=== PATIENT | male | born 1960 | race Caucasian/White ===

== ENCOUNTER 2024-09-15 13:25 | Emergency (ER) | payer MEDICARE, MEDICAID, SELFPAY ==
[2024-09-15 13:26] VITALS: BMI 26.4
[2024-09-15 13:34] VITALS: BP 126/84; PULSE 85; RESP 20; TEMP 36.7; O2SAT 98
--- NOTE | 2024-09-15 13:35 | EKG_ITS ---
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1960 Requested By: Eyal Steele (MARTINEZ) Order Number: [id number] Reading MD: Eyal Steele ([employer]ACKAGES TESTER) Measurements Intervals [place] Rate: 80 P: 42 NH: 187 QRS: -59 QRSD: 122 T: 94 QT: 421 QTc: 486 Interpretive Statements SINUS RHYTHM POSSIBLE LEFT ATRIAL ENLARGEMENT [-0.1mV P WAVE IN V1/V2] LEFT VENTRICULAR HYPERTROPHY AND ST-T CHANGE [VOLTAGE CRITERIA PLUS ST/T ABNORMALITY] INFERIOR MYOCARDIAL INFARCTION , OF INDETERMINATE AGE [40+ ms Q WAVE AND/OR ST/T ABNORMALITY IN II/aVF] Compared to ECG 02/21/2020 15:31:45 Ventricular premature complex(es) no longer present Incomplete right bundle-branch block no longer present ST (T wave) deviation still present Myocardial infarct finding still present /store/S0/[id number]
--- NOTE | 2024-09-15 13:49 | XR_ITS ---
Examination: CT cervical spine without contrast 2-D sagittal reconstructions 2-D coronal reconstructions 3-D reconstructions. Exam date and time:September 15, 2024 1402 hours INDICATIONS: Patient fell today injury to the neck, neck pain CTDI:vol (mGy) 9.07 DLP: (mGycm) 223 Technique: Multiple 2 mm axial sections of the cervical spine have been obtained. The coronal and sagittal reconstructions have been obtained. 3-D reconstructions have been obtained. Low dose protocols were performed. One or more of the following dose reduction techniques were used; automated exposure control, adjustment of the mA and/or KV according to patient size, use of iterative reconstruction technique. Findings: Axial sections demonstrate intact base of the skull. C1 exhibit satisfactory relationship to the odontoid. No acute cervical vertebral body fracture seen. Alignment posterior spinous processes satisfactory. Impression: No acute cervical fracture.
--- NOTE | 2024-09-15 13:49 | XR_ITS ---
Examination: CT brain head without contrast. 2-D sagittal coronal reconstructions Date and time of exam:September 15, 2024 1402 hours INDICATIONS: Patient fell today with injury to the head, frontal head pain after syncopal episode CTDI: vol (mGy):55.2 DLP: (mGycm):1256 Technique: Multiple CT axial sections of the brain have been obtained, 5 mm slice thickness. Contrast has not been administered. 2-D sagittal, coronal reconstructions have been obtained Low dose protocols were performed. One or more of the following dose reduction techniques were used; automated exposure control, adjustment of the mA and/or KV according to patient size, use of iterative reconstruction technique. Findings: No significant ventricular enlargement. Right frontal scalp swelling Intra-axial or extra-axial hemorrhage density is not seen. No mass effect or midline shift Basal cisterns are not remarkable. Fourth ventricle is midline. Cranial vault intact. Impression: Negative for acute hemorrhage, mass effect or midline shift
--- NOTE | 2024-09-15 13:51 | PD.EDRME ---
Rapid Medical Screening Exam RME Arrival date/time: 09/15/24 13:25 64-year-old male presents to the emergency department today with complaints of fall today Chief Complaint: Syncope / Near Syncope Time Seen by Provider: 09/15/24 13:35 Vital signs: Vital Signs Temperature 98.0 F 09/15/24 13:34 Pulse Rate 85 09/15/24 13:34 Respiratory Rate 20 09/15/24 13:34 Blood Pressure 126/84 09/15/24 13:34 Pulse Oximetry (%) 98 09/15/24 13:34 Oxygen Delivery Method Room Air 09/15/24 13:34
[2024-09-15 14:19] LABS: Basophils % (Auto) 0 % (0-2.5); Eosinophils % (Auto) 0 % (0-10); Hemoglobin 13.6 g/dL (13.5-16.0); Immature Granulocytes % (Auto) 0 % (0-0); Immature Granulocytes Auto 0.03 Thou/mm3 (0.00-0.00); Lymphocytes # (Auto) 0.6 Thou/mm3 (1.0-4.8); Lymphocytes % (Auto) 6 % (10-50); Mean Corpuscular HGB Conc 35.8 g/dl (31.0-37.0); Mean Corpuscular Hemoglobin 32.2 pg (25.0-35.0); Mean Corpuscular Volume 90 fL (80-100); Monocytes # (Auto) 0.8 Thou/mm3 (0.0-0.8); Monocytes % (Auto) 10 % (0-12); Neutrophils # (Auto) 7.4 Thou/mm3 (1.8-7.7); Neutrophils % (Auto) 84 % (37-80); Nucleated Red Blood Cell % 0 /100 WBC (0); Platelet Count 141 Thou/mm3 (140-440); RDW Standard Deviation 45.1 fL (35.1-43.9); Red Blood Count 4.23 Miln/mm3 (4.50-5.90); White Blood Count 8.8 Thou/mm3 (3.8-10.6)
[2024-09-15 14:37] LABS: INR 1.3 (0.9-1.3); Partial Thromboplastin Time 29.6 Seconds (22.0-36.0); Prothrombin Time 13.8 Seconds (9.0-12.2)
[2024-09-15 14:45] LABS: Alanine Aminotransferase 23 U/L (10-49); Albumin, Serum 3.9 gm/dL (3.4-4.8); Albumin/Globulin Ratio 1.2 (1.2-2.2); Alkaline Phosphatase 80 U/L (46-116); Anion Gap 7 (7-16); Aspartate Amino Transferase 71 U/L (0-34); BUN/Creatinine Ratio 15 Ratio (12-20); Bilirubin,Total 1.3 mg/dL (0.3-1.2); Blood Urea Nitrogen 12 mg/dL (9-23); Calcium (Corrected) 9.1 mg/dL (8.5-10.1); Carbon Dioxide 26.6 mMol/L (20.0-31.0); Chloride 97 mMol/L (98-107); Creatinine (Component) 0.8 mg/dL (0.6-1.3); Estimated Creatinine Clearance 106.8 mL/min (>60); Globulin 3.2 gm/dL (2.3-3.5); Glucose 102 mg/dL (74-106); Osmolality,Calculated 262 (275-295); Potassium 3.9 mMol/L (3.4-5.1); Sodium 131 mMol/L (136-145); Total Protein 7.1 gm/dL (5.7-8.2); eGFR > 60 See Note
[2024-09-15 14:46] LABS: Troponin I 0.058 ng/mL (0.0-0.045)
[2024-09-15] MEDS: ACETAMINOPHEN 500 MG TABLET 1000 MG PO (15:37)
[2024-09-15 15:52] LABS: Collection Type, Urine Clean Catch
[2024-09-15 16:09] LABS: Bilirubin,Urine 1+ (Negative); Blood,Urine Negative (Negative); Color,Urine Yellow (Lt Yel-Yel); Glucose, Urine Negative (Negative); Hyaline Casts,Urine < 1 /hpf (0-1); Ketones,Urine 2+ (Negative); Leukocyte Esterase,Urine Negative (Negative); Nitrite,Urine Negative (Negative); Protein,Urine 1+ (Neg - Trace); RBC,Urine 10 /hpf (0-3); Specific Gravity,Urine 1.025 (1.001-1.035); Squamous Epithelial Cell,Urine < 1 /hpf (0-5); WBC,Urine 7 /hpf (0-5)
[2024-09-15 16:10] VITALS: BP 156/85; PULSE 83; RESP 18; TEMP 36.9; O2SAT 98
[2024-09-15 16:12] LABS: Clarity,Urine Hazy (Clear/Hazy); Sperm,Urine Present
[2024-09-15 16:20] LABS: Amphetamine/Methamp Scrn,U Positive (Negative); Barbiturate Screen,Urine Negative (Negative); Benzodiazepines Screen,Urine Negative (Negative); Benzoylecgonine Screen, Ur Positive (Negative); Fentanyl Screen,Urine Negative (Negative); Opiate Screen,Urine Negative (Negative); THC Screen,Urine Positive (Negative)
[2024-09-15 16:49] VITALS: BP 149/88; PULSE 89; RESP 20; TEMP 36.9; O2SAT 95
--- NOTE | 2024-09-15 16:58 | PC.NURSE ---
patient awake and alert. states not sure what happened. does know he lost consciousness. c/o throbbing h/a. laceration observed to upper rt forehead and to rt outer eyebrow area.
[2024-09-15 17:51] VITALS: BP 111/71; PULSE 93; RESP 21; TEMP 37.2; O2SAT 92
--- NOTE | 2024-09-15 17:59 | PD.EDADULT ---
ED General RME/HPI General Chief complaint: Syncope / Near Syncope Stated complaint: was found down at home, confused, gash on forehead Time Seen by Provider: 09/15/24 13:35 Arrival date/time: 09/15/24 13:25 CC: Headache right forehead laceration HPI onset after a fall, the patient has conflicting stories of whether a speaker fell on him or he bumped to do it and it fell. The patient denies loss of consciousness. Patient is somewhat altered appears somewhat disheveled has no other specific complaints. Local pain is 3-4 out of 10 scale although I suspect the patient is under influence of substances. RME / HPI RME / HPI narrative: 09/15/24 13:25 64-year-old male presents to the emergency department today with complaints of fall today Related Data Home Medications ?Medication ?Instructions ?Recorded ?Confirmed lisinopril 20 mg tablet 20 mg PO QDAY 05/27/19 02/21/20 Previous Rx's ?Medication ?Instructions ?Recorded pantoprazole 40 mg tablet,delayed 40 mg PO QDAY #30 tabs 01/31/19 release acetaminophen 500 mg capsule 1,000 mg (2 x 500 mg) PO Q4H PRN 02/16/20 pain #30 caps pantoprazole 40 mg tablet,delayed 40 mg PO QDAY #14 tabs 02/21/20 release (Protonix) Allergies Allergy/AdvReac Type Severity Reaction Status Date / Time codeine Allergy Unknown Verified 09/15/24 13:29 ibuprofen AdvReac Intermediate DUE TO HX Verified 09/15/24 13:29 OF ULCERS Penicillins AdvReac Intermediate MAKES Verified 09/15/24 13:29 INFECTIONS WORSE Review of Systems Review of Systems Narrative Review of Systems: GEN: No fever, no chills, no weight loss EYES: No discharge, no visual changes, no pain HEENT: No ear pain, no congestion, no sore throat PULM: No shortness of breath, no cough, no congestion CV: No chest pain, no dyspnea on exertion, no palpitations GI: No nausea, no vomiting, no diarrhea, no pain, no constipation : No frequency, no urgency, no dysuria MUSC/SKEL: No joint pain, no back pain SKIN: Forehead laceration no rash PSYCH: No hallucinations, no depression HEME/LYMPH: No easy bleeding or bruising tendencies NEURO: No weakness, + headache Past Medical History Past Medical History NEUROLOGIC: Negative Seizures CARDIAC: Positive Hypercholesterolemia and Hypertension; Negative Cardiac Disorders or Congestive Heart Failure RESPIRATORY: Negative Chronic Obstructive Pulmonary Disease (COPD) or Asthma GASTROINTESTINAL: Positive Gastrointestinal Disorders, Hepatitis and Gastrointestinal Bleed GENITOURINARY: Negative Renal Disease ENDOCRINE: Negative Diabetes Mellitus Type 1 or Diabetes Mellitus Type 2 HEMATOLOGIC: Negative Sickle Cell Disease PSYCHO/SOCIAL: Positive Schizophrenia and Anxiety OTHER HISTORY: Negative Blood Transfusions, Blood Transfusion Reaction or Anesthesia Reactions Social History SMOKING STATUS: Never smoker SUBSTANCE USE: marijuana and methamphetamine ED Exam Narrative Physical exam: [General: Disheveled, ill kempt, mild discomfort not in any acute distress Head 5 cm full-thickness laceration to the right frontal scalp, no other lacerations abrasions hematoma or depressions. HEENT: Eyes: Pupils are PERRLA EOMs are intact nose no rhinorrhea or otorrhea no raccoon's eyes or diaz signs swallow symmetrical phonation is normal all the subsystems of ATTR within acceptable limits Neck is supple nontender Chest equal chest rise nontender to palpation Respiratory: Clear to auscultation no wheezes crackles or rubs CV: Rate rhythm is regular no murmurs rubs or clicks Abdomen is soft nontender no masses positive bowel sounds all 4 quadrants Back: No CVA tenderness no spinous process tenderness from cervical spine thoracic and lumbar spine Skin: 5 cm full-thickness laceration to the right frontal forehead. Otherwise skin is intact no petechiae rash induration ulceration or crepitus Extremities: Moving all extremity against resistance cap refill less than 2 seconds neurosensory intact Neuro: Awake alert oriented x3 Glascow coma 15 no focal deficits] Course Quality Measures none Orders Category Date Time Status EKG (ED ONLY) *Do not use* NOW Care 09/15/24 13:[address] cervical spine wo con Stat Exams 09/15/24 13:[address] head/brain wo con Stat Exams 09/15/24 13:49 Completed EKG (ED Only) Stat Exams 09/15/24 13:35 Draft CBC Stat Lab 09/15/24 14:12 Completed Comprehensive Metabolic Panel Stat Lab 09/15/24 14:12 Completed Drug Screen,Urine Stat Lab 09/15/24 15:48 Completed Partial Thromboplastin Time Stat Lab 09/15/24 14:12 Completed Prothrombin Time with INR Stat Lab 09/15/24 14:12 Completed Troponin I Stat Lab 09/15/24 14:12 Completed Troponin I Stat Lab 09/15/24 17:48 Completed Urinalysis Stat Lab 09/15/24 15:48 Completed Acetaminophen Tab [Tylenol ES Tab] Med 09/15/24 15:32 Discontinued 1,000 mg PO X1 ONE Lidocaine 1% 20 ml [Xylocaine 1% 20 ML] Med 09/15/24 17:41 Discontinued 10 ml INFL X1 ONE Tet,Diphth,Pertuss(Acell)-Tdap [Boostrix Vacc] Med 09/15/24 17:57 Discontinued 0.5 ml IMI .ONCE ONE Vital Signs Vital signs: Vital Signs Temperature 98.0 F 09/15/24 13:34 Pulse Rate 85 09/15/24 13:34 Respiratory Rate 20 09/15/24 13:34 Blood Pressure 126/84 09/15/24 13:34 Pulse Oximetry (%) 98 09/15/24 13:34 Oxygen Delivery Method Room Air 09/15/24 13:34 Procedures -ED Procedure Comment Laceration repair: Consent obtained: Anesthesia 1% lidocaine 3 mL injected the local site, the site was extensively cleaned and probed no foreign body was found site was approximated with 3 and ruptured sutures of 5-0 Ethilon with good approximation without complication patient tolerated procedure well. [facility] Patient data External records reviewed:: [facility] previous records Clinical information provided by:: patient and none Social determinants that could affect healthcare access:: substance use Patient has the following chronic illnesses:: Polysubstance abuse How is presenting disease/condition affected by chronic disease/condition?: exacerbated by Evaluation data The following diagnostics were reviewed and interpreted by me:: lab results and radiology exam(s) Lab and/or radiology exams considered but not ordered:: CT head is negative for any acute findings interpreted by me read by radiology. CBC shows no acute leukocytosis anemia thrombocytopenia Coags show an INR of 1.3 CMP shows sodium 131 no other acute electrolyte imbalances renal impairment transaminitis. T. bili elevated 1.3 Troponin is mildly elevated UDS is positive for cocaine methamphetamines and THC EKG performed at 1357 shows a ventricular rate of 80 MN interval 187 QRS 122 QTc of 456 is sinus rhythm nonspecific ST segment changes when compared to old EKG of January 2020 there are no significant changes Repeat troponin is essentially unchanged. Interpretation Summary: Fall forehead lack, polysubstance abuse patient is insisting on going home we will discharge the patient Medications Medications considered but not ordered:: None Medication administrations:: Medication Administration History Discontinued Medications Acetaminophen (Acetaminophen 500 Mg Tablet) 1,000 mg PO X1 ONE Stop: 09/15/24 15:33 Last Admin: 09/15/24 15:37 Dose: 1,000 mg Documented By: AA Diphtheria/Tetanus/Acell Pertussis (Diphth,Pertuss(Acell),Tet Vac 0.5 Ml Vial) 0.5 ml IMi .ONCE ONE Stop: 09/15/24 17:58 Last Admin: 09/15/24 19:20 Dose: 0.5 ml Documented By: SONALI Lidocaine HCl (Lidocaine Hcl 1% 20 Ml Vial) 10 ml INFL X1 ONE Stop: 09/15/24 17:42 None Consultations Consultation(s) initiated? (list below): No Diagnosis Differential Diagnosis ED Complaint MDM: Fall forehead laceration polysubstance abuse Most likely diagnosis given after review of the tests above:: Fall forehead laceration polysubstance abuse Admission Indicated Admission indicated?: not indicated Explain why admission is indicated or not indicated:: Stable for outpatient follow-up Admission Request Was there a request for admission?: No Disposition Plan Disposition Plan: Discharge Discharge Attestation Discharge Attestation: The patient and all family members were given an opportunity to ask questions and understood the discharge instructions. Discharge instructions specifically effects, indications for sooner follow up or return to the emergency department, and the expected course of current diagnosis. Patient condition: Stable Medical Decision Making Differential Diagnosis Differential Diagnosis: Fall forehead laceration polysubstance abuse Lab Data 09/15/24 14:12 09/15/24 14:12 Labs: Lab Results 09/15/24 09/15/24 09/15/24 Range/Units 14:12 15:48 17:48 WBC 8.8 (3.8-10.6) Thou/mm3 RBC 4.23 L (4.50-5.90) Miln/mm3 Hgb 13.6 (13.5-16.0) g/dL Hct 38.0 L (41.0-53.0) % MCV 90 (80-100) fL MCH 32.2 (25.0-35.0) pg MCHC 35.8 (31.0-37.0) g/dl RDW Std Deviation 45.1 H (35.1-43.9) fL Plt Count 141 (140-440) Thou/mm3 Neut % (Auto) 84 H (37-80) % Lymph % (Auto) 6 L (10-50) % [place] % (Auto) 10 (0-12) % Eos % (Auto) 0 (0-10) % Baso % (Auto) 0 (0-2.5) % Neut # (Auto) 7.4 (1.8-7.7) Thou/mm3 Lymph # (Auto) 0.6 L (1.0-4.8) Thou/mm3 [place] # (Auto) 0.8 (0.0-0.8) Thou/mm3 Eos # (Auto) 0.0 (0.0-0.5) Thou/mm3 Baso # (Auto) 0.0 (0.0-0.2) Thou/mm3 Immature Gran # (Auto) 0.03 H (0.00-0.00) Thou/mm3 Absolute Nucleated RBC 0.00 (0.00-0.00) Thou/mm3 Immature Gran % 0 (0-0) % Nucleated RBC % 0 (0) /100 WBC PT 13.8 H (9.0-12.2) Seconds INR 1.3 (0.9-1.3) APTT 29.6 (22.0-36.0) Seconds Sodium 131 L (136-145) mMol/L Potassium 3.9 (3.4-5.1) mMol/L Chloride 97 L (98-107) mMol/L Carbon Dioxide 26.6 (20.0-31.0) mMol/L Anion Gap 7 (7-16) BUN 12 (9-23) mg/dL Creatinine 0.8 (0.6-1.3) mg/dL Estim Creat Clear Calc 106.8 (>60) mL/min eGFR > 60 (60 - ) See Note BUN/Creatinine Ratio 15 (12-20) Ratio Glucose 102 (74-106) mg/dL Calculated Osmolality 262 L (275-295) Calcium 9.0 (8.3-10.6) mg/dL Corrected Calcium 9.1 (8.5-10.1) mg/dL Total Bilirubin 1.3 H (0.3-1.2) mg/dL AST 71 H (0-34) U/L ALT 23 (10-49) U/L Alkaline Phosphatase 80 (46-116) U/L Troponin I 0.058 H* 0.064 H* (0.0-0.045) ng/mL Total Protein 7.1 (5.7-8.2) gm/dL Albumin 3.9 (3.4-4.8) gm/dL Globulin 3.2 (2.3-3.5) gm/dL Albumin/Globulin Ratio 1.2 (1.2-2.2) Ur Collection Type Clean Catch Urine Color Yellow (Lt Yel-Yel) Urine Clarity Hazy (Clear/Hazy) Urine pH 6.0 (5.0-7.0) Ur Specific [place] 1.025 (1.001-1.035) Urine Protein 1+ A (Neg - Trace) Urine Glucose (UA) Negative (Negative) Urine Ketones 2+ A (Negative) Urine Blood Negative (Negative) Urine Nitrite Negative (Negative) Urine Bilirubin 1+ A (Negative) Urine Urobilinogen (Auto) 4.0 (0.0-1.0) mg/dL Ur Leukocyte Esterase Negative (Negative) Urine RBC 10 H (0-3) /hpf Urine WBC 7 H (0-5) /hpf Ur Squamous Epith Cells < 1 (0-5) /hpf Urine Bacteria None (None) Hyaline Casts < 1 (0-1) /hpf Urine Sperm Present A (None) Urine Opiates Screen Negative (Negative) Urine Fentanyl Screen Negative (Negative) Ur Barbiturates Screen Negative (Negative) U Amphetamin/Meth Scrn Positive A (Negative) U Benzodiazepines Scrn Negative (Negative) U Cocaine Metab Screen Positive A (Negative) U Marijuana (THC) Screen Positive A (Negative) Discharge Plan Plan Patient Disposition: HOME (Self Care) Patient condition on transfer: Stable Prescriptions/Referrals Prescriptions/Med Rec: No Action pantoprazole 40 mg tablet,delayed release (DR/EC) 40 mg PO QDAY Qty: 30 0RF acetaminophen 500 mg capsule 1,000 mg PO Q4H PRN (Reason: pain) Qty: 30 0RF lisinopril 20 mg Tablet 20 mg PO QDAY pantoprazole [Protonix] 40 mg tablet,delayed release (DR/EC) 40 mg PO QDAY Qty: 14 0RF Referrals: Richard Sanchez MD [Primary Care Provider] - In 1 week Problem List Clinical Impression: Fall, Forehead laceration, Methamphetamine abuse, Cocaine abuse, Mild tetrahydrocannabinol (THC) abuse Patient/Caregiver Discharge Instructions Other Activity Instructions:: Stitches out in [address] Education Materials: ED Laceration: All Closures Print Language: Pashto Stand Alone Forms: [facility]al Award Info., Patient Portal Info Letter PA/REPAIR ARMATURE WINDER HELPER Supervising Physician PA/REPAIR ARMATURE WINDER HELPER Supervising Physician: John Stephen ENP
[2024-09-15 18:26] LABS: Troponin I 0.064 ng/mL (0.0-0.045)
[2024-09-15] MEDS: DIPHTH,PERTUSS(ACELL),TET VAC 0.5 ML VIAL IMi (19:20)
[2024-09-15 19:23] VITALS: BP 125/77; PULSE 101; RESP 19; TEMP 36.8; O2SAT 95
== END 2024-09-15 19:40 | disposition home or self-care (01) ==
PROVIDERS: Nurse Practitioner Primary Care; Registered Nurse General Practice; Emergency Provider Emergency Medicine; PCP Family Medicine
DX: S01.81XA Laceration without foreign body of other part of head, initial encounter (principal); S19.9XXA Unspecified injury of neck, initial encounter; F15.10 Other stimulant abuse, uncomplicated; F14.10 Cocaine abuse, uncomplicated; F12.10 Cannabis abuse, uncomplicated; R94.31 Abnormal electrocardiogram [ECG] [EKG]; E78.00 Pure hypercholesterolemia, unspecified; I10 Essential (primary) hypertension; W19.XXXA Unspecified fall, initial encounter; Z23 Encounter for immunization
CPT/HCPCS: 12013; 36415; 70450; 72125; 80053; 80307; 81001; 84484; 85025; 85610; 85730; 90471; 90715; 93005; 99284; A9270

== ENCOUNTER 2025-03-11 05:49 | Inpatient (IN) | payer MEDICARE, MEDICAID, SELFPAY ==
[2025-03-11] VITALS (10 sets, daily range): BP systolic 129–149; BP diastolic 78–91; PULSE 77–118; RESP 16–26; TEMP 36.5–36.9; O2SAT 91–97; BMI 26.4; BMI 27.2
--- NOTE | 2025-03-11 06:19 | PC.NURSE ---
pt bib [facility] for flank pain urinary retention with some blood in urine. pt complaints in room left flank pain that radiates across abd to right side, pt also complains, complaints of headache he has had a cough past few days, no bm for 4 days last bm was diarrhea. pt also states he used meth and drank alcohol past few day.
--- NOTE | 2025-03-11 06:26 | EKG_ITS ---
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1960 Requested By: Manoj Jose Order Number: [id number] Reading MD: Manoj Jose Measurements Intervals [place] Rate: 80 P: 26 MD: 189 QRS: -36 QRSD: 121 T: 67 QT: 396 QTc: 459 Interpretive Statements SINUS RHYTHM LEFT ATRIAL ENLARGEMENT [-0.15mV P-WAVE IN V1/V2] POSSIBLE RIGHT VENTRICULAR CONDUCTION DELAY [RSR (QR) IN V1/V2] POSSIBLE ANTERIOR MYOCARDIAL INFARCTION , OF INDETERMINATE AGE [30 ms Q WAVE IN V3/V4, OR R < 0.2 mV IN V4] INFERIOR MYOCARDIAL INFARCTION , PROBABLY OLD [40+ ms Q WAVE AND/OR ST/T ABNORMALITY IN II/aVF] Compared to ECG 09/15/2024 13:57:37 Left ventricular hypertrophy no longer present ST (T wave) deviation no longer present Myocardial infarct finding still present /store/S0/[id number]
--- NOTE | 2025-03-11 06:41 | EDNOTE_ITS ---
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 Stop: 03/11/25 06:26 Last Admin: 03/11/25 07:55 Dose: 14 mg Documented By: ASHLEE Ondansetron HCl (Ondansetron Inj 2 Mg/Ml Inj 2 Ml) 4 mg IV X1 ONE; Protocol Stop: 03/11/25 06:26 Last Admin: 03/11/25 06:46 Dose: 4 mg Documented By: BD see above Diagnosis Differential Diagnosis ED Complaint MDM: Hyponatremia, community-acquired pneumonia, lactic acidosis Diagnoses ruled out and/or further discussions: Patient was found to have acute hyponatremia sodium 124 likely related to beer potomania, leukocytosis, community-acquired pneumonia, coagulopathy, lactic acidosis, hyperglycemia, and elevated total bilirubin. UA was negative for blood or infection therefore possibility of kidney stones and hydronephrosis less likely. Postvoiding patient continued to have abdominal pain therefore we will follow-up with CT abdomen with contrast to rule out any abdominal pathology including colitis pattern as patient was complaining of loose stools 3 days before. Patient was given a dose of Rocephin 1 mg x 1, azithromycin 500 mg x 1 and currently awaiting on sodium. Will start with normal saline at 65 cc/h if sodium continues to drop along with fluid restriction 1500 cc and strict in/outs.
[2025-03-11 06:46] LABS: Lactate (Lactic Acid) 2.4 mMol/L (0.4-2.0)
[2025-03-11] MEDS: MORPHINE SULF INJ 10 MG/ML VIAL 2 MG IVP ×2 (06:46→22:04)
[2025-03-11] MEDS: ONDANSETRON INJ 2 MG/ML INJ 2 ML 4 MG IV ×2 (06:46→14:29)
[2025-03-11] MEDS: Magnesium Sulfate 2 GM Ivpb 2 GM/50 ML BAG IV (06:46)
[2025-03-11] MEDS: RINGERS LACTATED 1000 ML 1,000 ML 999 ML IV (06:47)
[2025-03-11] MEDS: FAMOTIDINE INJ 10 MG/ML VIAL 2 ML 20 MG IVP (06:47)
[2025-03-11 06:50] LABS: Basophils # (Auto) 0.1 Thou/mm3 (0.0-0.2); Basophils % (Auto) 0 % (0-2.5); Eosinophils % (Auto) 0 % (0-10); Hematocrit 40.3 % (41.0-53.0); Hemoglobin 14.6 g/dL (13.5-16.0); Immature Granulocytes % (Auto) 1 % (0-0); Lymphocytes # (Auto) 0.5 Thou/mm3 (1.0-4.8); Lymphocytes % (Auto) 4 % (10-50); Mean Corpuscular HGB Conc 36.2 g/dl (31.0-37.0); Mean Corpuscular Hemoglobin 31.7 pg (25.0-35.0); Mean Corpuscular Volume 87 fL (80-100); Monocytes # (Auto) 1.3 Thou/mm3 (0.0-0.8); Monocytes % (Auto) 11 % (0-12); Neutrophils # (Auto) 9.7 Thou/mm3 (1.8-7.7); Neutrophils % (Auto) 83 % (37-80); Nucleated Red Blood Cell % 0 /100 WBC (0); Platelet Count 216 Thou/mm3 (140-440); RDW Standard Deviation 43.8 fL (35.1-43.9); Red Blood Count 4.61 Miln/mm3 (4.50-5.90); White Blood Count 11.6 Thou/mm3 (3.8-10.6)
--- NOTE | 2025-03-11 06:58 | PC.NURSE ---
called pharmacy for nicotine patch
[2025-03-11 07:01] LABS: INR 1.5 (0.9-1.3); Partial Thromboplastin Time 30.8 Seconds (22.0-36.0); Prothrombin Time 15.6 Seconds (9.0-12.2)
[2025-03-11 07:13] LABS: Ammonia < 10 uMol/L (11-32)
[2025-03-11 07:19] LABS: Alanine Aminotransferase 10 U/L (10-49); Albumin, Serum 3.6 gm/dL (3.4-4.8); Albumin/Globulin Ratio 1.2 (1.2-2.2); Alcohol, Blood Medical < 10.0 mg/dL (0-10.0); Alkaline Phosphatase 79 U/L (46-116); Anion Gap 10 (7-16); Aspartate Amino Transferase 31 U/L (0-34); BUN/Creatinine Ratio 21 Ratio (12-20); Bilirubin,Total 1.9 mg/dL (0.3-1.2); Blood Urea Nitrogen 15 mg/dL (9-23); Calcium 8.3 mg/dL (8.3-10.6); Calcium (Corrected) 8.6 mg/dL (8.5-10.1); Carbon Dioxide 26.4 mMol/L (20.0-31.0); Chloride 88 mMol/L (98-107); Creatinine (Component) 0.7 mg/dL (0.6-1.3); Estimated Creatinine Clearance 122.1 mL/min (>60); Glucose 127 mg/dL (74-106); Lipase 23 U/L (12-53); Magnesium 1.8 mg/dL (1.6-2.6); Osmolality,Calculated 252 (275-295); Phosphorous 2.7 mg/dL (2.4-5.1); Potassium 3.6 mMol/L (3.4-5.1); Procalcitonin 0.62 ng/ml (0.0-0.49); Sodium 124 mMol/L (136-145); Total Protein 6.6 gm/dL (5.7-8.2); Troponin I < 0.020 ng/mL (0.0-0.045); eGFR > 60 See Note
--- NOTE | 2025-03-11 07:41 | XR_ITS ---
Examination: Abdomen sonogram, Limited Date and time of exam: March 11, 2025 0801 hours INDICATIONS: Abdominal pain one week with elevated bilirubin on laboratory examination Technique: Real-time urena scale transabdominal sonographic images of the upper abdomen obtained. Findings: Gallbladder sludge Gallbladder wall 0.8 cm with edema Common bile duct 0.3 cm Pancreatic head 2.3 cm Liver 17.1 cm irregular contour ascites Normal hepatopedal portal venous flow Patent IVC IMPRESSION: Suspicious for acute cholecystitis, consider HIDA scan or MRCP follow-up
[2025-03-11] MEDS: NICOTINE PATCH 14 MG/24 HR PATCH.TD24 TOP (07:55)
--- NOTE | 2025-03-11 07:56 | XR_ITS ---
Examination: AP chest single view Technique one AP portable semiupright chest single view Date and time: March 11, 2025 0840 hours Comparison February 21, 2020 INDICATIONS: Coughing 3 days. FINDINGS: Early bibasilar pneumonia. Normal heart size. Moderate osteopenia. IMPRESSION: Early bibasilar pneumonia
[2025-03-11 08:07] LABS: B-Type Natriuretic Peptide 254 pg/mL (0-100)
[2025-03-11 08:17] LABS: Collection Type, Urine Clean Catch
[2025-03-11 08:45] LABS: Amphetamine/Methamp Scrn,U Positive (Negative); Barbiturate Screen,Urine Negative (Negative); Benzodiazepines Screen,Urine Negative (Negative); Benzoylecgonine Screen, Ur Negative (Negative); Fentanyl Screen,Urine Negative (Negative); Opiate Screen,Urine Positive (Negative); THC Screen,Urine Negative (Negative)
[2025-03-11 08:46] LABS: Bacteria,Urine Rare; Bilirubin,Urine Negative (Negative); Blood,Urine Negative (Negative); Clarity,Urine Clear (Clear/Hazy); Color,Urine Yellow (Lt Yel-Yel); Glucose, Urine Negative (Negative); Hyaline Casts,Urine < 1 /hpf (0-1); Ketones,Urine Negative (Negative); Leukocyte Esterase,Urine Negative (Negative); Nitrite,Urine Negative (Negative); PH,Urine 6.5 (5.0-7.0); Protein,Urine Negative (Neg - Trace); RBC,Urine 1 /hpf (0-3); Specific Gravity,Urine 1.014 (1.001-1.035); Squamous Epithelial Cell,Urine < 1 /hpf (0-5); Urobilinogen,Urine 12 mg/dL (0.0-1.0); WBC,Urine 1 /hpf (0-5)
[2025-03-11 09:31] LABS: Chloride,Urine Random < 20.0 mMol/L (55.0-125.0); Creatinine,Random Urine 56 mg/dL (30-125); Potassium,Urine Random 17 mMol/L (12-62); Sodium,Urine Random < 10.0 mMol/L (20.0-110.0)
[2025-03-11 09:42] LABS: Reflex Lactate? Y
--- NOTE | 2025-03-11 10:09 | XR_ITS ---
Examination: CT abdomen with intravenous contrast CT pelvis with intravenous contrast 2-D coronal reconstructions 2-D sagittal reconstructions Date and time of exam:The 2024 1149 hours Comparison May 27, 2019 INDICATIONS: Epigastric pain pelvic pain difficulty urinating today. CTDI: vol (mGy) 10 DLP: (mGycm) 673 Technique: Multiple axial sections of the abdomen and pelvis have been obtained. 64 slice high-resolution scanner used. 3 mm axial sections have been obtained, post intravenous injection 60 cc Isovue-370 2-D sagittal, coronal reconstructions obtained. Low dose protocols were performed. One or more of the following dose reduction techniques were used; automated exposure control, adjustment of the mA and/or KV according to patient size, use of iterative reconstruction technique. Findings: Atelectasis in the right lower lobe Cirrhosis, liver nodular in contour No definite gallstones Mild ascites No splenic or pancreatic mass No hydronephrosis Multiple fluid distended small bowel loops Heavy abdominal aortic calcification Colonic diverticulosis Urinary bladder contracted around a Jenkins catheter diffuse urinary bladder wall thickening up to 15 mm Transverse prostate dimension 4.2 cm Advanced disc narrowing L4-L5, L5-S1 IMPRESSION: Cirrhosis Mild ascites High-grade mechanical small bowel obstruction, recommend Gastrografin small bowel series follow-up
[2025-03-11 10:19] LABS: Lactic Acid, 3 HR 1.3 mMol/L (0.4-2.0)
[2025-03-11 10:33] LABS: Sodium 127 mMol/L (136-145)
[2025-03-11] MEDS: cefTRIAXone/D5w 1gm IV premix 1 GM/50 ML BAG IV (11:28)
[2025-03-11] MEDS: AZITHROMYCIN INJ 500 MG in SODIUM CHLORIDE 0.9% 250 ML 250 ML 250 MG IV (12:30)
--- NOTE | 2025-03-11 12:45 | XR_ITS ---
Examination: AP chest single view TECHNIQUE: AP portable upright chest single view Date and time: March 11, 2025 1333 hours INDICATIONS: Post orogastric tube placement. FINDINGS: Orogastric tube in the stomach satisfactory position Mild prominence left ventricle Moderate elevation right hemidiaphragm IMPRESSION: Orogastric tube satisfactory position
--- NOTE | 2025-03-11 13:13 | XR_ITS ---
Examination: Small bowel series Abdomen AP supine 3 views Date and time: March 11, 2025 1513 hours INDICATIONS: Abdominal pain and distention this week, small bowel obstruction pattern on CT abdomen pelvis today TECHNIQUE AND FINDINGS: Patient received 120 cc Gastrografin, immediate, 30 minute one hour films obtained Contrast in the stomach Markedly air distended small bowel loops IMPRESSION: Small bowel obstruction pattern, recommend follow-up abdomen films 4:00 PM, 6:00 PM, 8:00 PM
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
[2025-03-11] MEDS: SODIUM CHLORIDE 0.9% 1000 ML 1,000 ML 75 ML IV (13:47)
[2025-03-11 13:57] LABS: Sodium 124 mMol/L (136-145)
[2025-03-11] MEDS: MORPHINE SULF INJ 10 MG/ML VIAL 5 MG IVP (14:29)
[2025-03-11] MEDS: PIPER/TAZO 3.375 GM PREMIX 3.375 GM/50 ML BAG IV ×2 (14:53→23:27)
--- NOTE | 2025-03-11 16:20 | XR_ITS ---
Examination: Abdomen AP single view Technique: AP portable supine abdomen, single view Exam date and time: March 11, 2025 at 1612 hours INDICATIONS: Abdominal distention today, 2 hour film post small bowel series FINDINGS: Contrast in the stomach Significantly air distended small bowel loops IMPRESSION: Significantly air distended small bowel loops, follow-up abdomen films will be obtained
--- NOTE | 2025-03-11 18:20 | XR_ITS ---
Examination: Abdomen AP single view Technique: AP portable supine abdomen, single view Exam date and time: 03/11/2025 1830 hours INDICATIONS: Abdominal pain and distention today for our film delayed post small bowel series FINDINGS: Prominently distended small bowel loops IMPRESSION: High-grade mechanical small bowel obstruction pattern. Delayed films will be obtained
[2025-03-11 18:51] LABS: Sodium 129 mMol/L (136-145)
--- NOTE | 2025-03-11 20:20 | XR_ITS ---
Examination: Abdomen AP single view Technique: AP portable supine abdomen, single view Exam date and time: March 11, 2025, 2034 hours INDICATIONS: 6 hour delayed film for small bowel series today, small bowel obstruction pattern on earlier abdomen films FINDINGS: Significantly air distended small bowel loops Contrast in the stomach IMPRESSION: High-grade mechanical small bowel obstruction Recommend follow-up abdomen films 10:00 PM, 1:00 AM, 4:00 AM
--- NOTE | 2025-03-11 21:50 | PC.NURSE ---
pt complains of richards cath leaking and wants to pee- Repositioned richards cath, deflated richards cath balloon, applied lubricating jelly to richards cath, inserted same richards cath further in, and reinflated balloon, added 2ml ns in balloon. Anchored with cath secure, applied no sting barried to skin prior to sticking cath secure.
[2025-03-11] MEDS: POT PHOS 15 mMol in NS 250 ML 15 MMOL/250 ML BAG 62.5 MMOL IV (22:05)
--- NOTE | 2025-03-11 22:30 | XR_ITS ---
Examination: Abdomen AP single view Technique: AP portable supine abdomen, single view Exam date and time: March 11, 2025 1106 hours INDICATIONS: Abdominal pain and distention this week, 8 hour delayed film post small bowel series today. FINDINGS: Significant air distended small bowel loops IMPRESSION: Small bowel obstruction pattern. Additional delayed films will be obtained
[2025-03-11 22:54] LABS: Sodium 127 mMol/L (136-145)
--- NOTE | 2025-03-11 23:15 | PC.NURSE ---
portable abdomen xray done at bedside.
[2025-03-12] VITALS (7 sets, daily range): BP systolic 127–158; BP diastolic 78–92; PULSE 75–90; RESP 16–23; TEMP 36.1–36.3; O2SAT 89–96
--- NOTE | 2025-03-12 01:00 | XR_ITS ---
Examination: Abdomen AP single view Technique: AP portable supine abdomen, single view Exam date and time: March 12, 2025 0149 hours INDICATIONS: Abdominal pain and distention this week, at 11 hour delayed film post small bowel series yesterday FINDINGS: Air and contrast distended small bowel loops IMPRESSION: High-grade mechanical small bowel obstruction pattern
--- NOTE | 2025-03-12 02:00 | PC.NURSE ---
Shayy Hernández(sister) point of contact, except per patient Not to tell Shayy regarding positive meth, She does not need to know that .
[2025-03-12] MEDS: SODIUM CHLORIDE 0.9% 1000 ML 1,000 ML 75 ML IV ×2 (02:45→19:11)
[2025-03-12] MEDS: MORPHINE SULF INJ 10 MG/ML VIAL 2 MG IVP ×4 (03:05→23:36)
--- NOTE | 2025-03-12 03:35 | PC.NURSE ---
ambulated in hallway holding unto iv pole with standby assist, on room air while ambulating. Walked upto outside 3 north at the fire window glass curtain and back upto outside room 365, and back in room 363. 89-92% O2 sat on room air- reapplied O2 inh on at 2L/min/nc.
--- NOTE | 2025-03-12 04:00 | XR_ITS ---
Examination: Abdomen AP single view Technique: AP portable supine abdomen, single view Exam date and time: March 12, 2025 0418 hours INDICATIONS: Abdominal pain and distention this week, 14 hour delayed film for small bowel series yesterday FINDINGS: Prominently distended small bowel loops Minimal contrast in the colon IMPRESSION: High-grade mechanical small bowel obstruction pattern. Recommend follow-up abdomen film 8:00 AM
--- NOTE | 2025-03-12 05:00 | XR_ITS ---
Examination: CTA abdomen, with intravenous contrast. CTA pelvis, with intravenous contrast. 2-D sagittal and coronal reconstructions. 3-D reconstructions. Date and time of exam: March 12, 2025 1028 hours INDICATIONS: Abdominal pain and distention this week, clinical diagnosis ischemic bowel CTDI vol (mgy) 10.3 DLP (MGycm) 721 Technique: Multiple CTA images, 2.0 mm slice thickness, obtained abdomen, pelvis, with the high-resolution 64 slice scanner. 100 cc Isovue-370 is administered intravenously. Sagittal and coronal 2-D reconstructions are obtained. 3-D reconstructions, angiographic images are obtained. 3-D postprocessing, including vascular maximum intensity projections. Low dose protocols were performed. One or more of the following dose reduction techniques were used; automated exposure control, adjustment of the mA and/or KV according to patient size, use of iterative reconstruction technique. Findings: Pneumonia right base Cirrhosis, liver nodular in contour Mild ascites No gallstones No pancreatic or adrenal mass No hydronephrosis Markedly fluid distended in contrast distended small bowel loops Negative for pneumoperitoneum Colonic diverticulosis Mild prostatomegaly urinary Jenkins catheter IMPRESSION: Cirrhosis Mild ascites Fluid distended small bowel loops, but negative for pneumoperitoneum
[2025-03-12 05:39] LABS: Basophils % (Auto) 0 % (0-2.5); Eosinophils % (Auto) 0 % (0-10); Hematocrit 42.7 % (41.0-53.0); Immature Granulocytes % (Auto) 1 % (0-0); Immature Granulocytes Auto 0.07 Thou/mm3 (0.00-0.00); Lymphocytes # (Auto) 0.8 Thou/mm3 (1.0-4.8); Lymphocytes % (Auto) 7 % (10-50); Mean Corpuscular HGB Conc 35.1 g/dl (31.0-37.0); Mean Corpuscular Hemoglobin 31.9 pg (25.0-35.0); Mean Corpuscular Volume 91 fL (80-100); Monocytes # (Auto) 2.2 Thou/mm3 (0.0-0.8); Monocytes % (Auto) 20 % (0-12); Neutrophils # (Auto) 7.8 Thou/mm3 (1.8-7.7); Neutrophils % (Auto) 72 % (37-80); Nucleated Red Blood Cell % 0 /100 WBC (0); Platelet Count 199 Thou/mm3 (140-440); RDW Standard Deviation 46.9 fL (35.1-43.9); White Blood Count 10.8 Thou/mm3 (3.8-10.6)
[2025-03-12] MEDS: PIPER/TAZO 3.375 GM PREMIX 3.375 GM/50 ML BAG IV ×3 (05:42→21:13)
[2025-03-12 06:18] LABS: Alanine Aminotransferase 7 U/L (10-49); Albumin, Serum 3.2 gm/dL (3.4-4.8); Albumin/Globulin Ratio 1.1 (1.2-2.2); Alkaline Phosphatase 70 U/L (46-116); Anion Gap 10 (7-16); Aspartate Amino Transferase 28 U/L (0-34); BUN/Creatinine Ratio 22 Ratio (12-20); Bilirubin,Total 1.1 mg/dL (0.3-1.2); Blood Urea Nitrogen 13 mg/dL (9-23); Calcium (Corrected) 8.6 mg/dL (8.5-10.1); Carbon Dioxide 25.2 mMol/L (20.0-31.0); Chloride 98 mMol/L (98-107); Creatinine (Component) 0.6 mg/dL (0.6-1.3); Estimated Creatinine Clearance 149.4 mL/min (>60); Globulin 2.8 gm/dL (2.3-3.5); Glucose 107 mg/dL (74-106); Magnesium 2.2 mg/dL (1.6-2.6); Osmolality,Calculated 266 (275-295); Phosphorous 3.2 mg/dL (2.4-5.1); Potassium 3.9 mMol/L (3.4-5.1); Sodium 133 mMol/L (136-145); eGFR > 60 See Note
--- NOTE | 2025-03-12 08:00 | XR_ITS ---
Examination: Abdomen AP single view Technique: AP portable supine abdomen, single view Exam date and time: March 12, 2025 0839 hours INDICATIONS: 17 hour delayed film post small bowel series yesterday FINDINGS: Multiple air distended small bowel loops However, contrast is present in the colon IMPRESSION: Incomplete but prominent small bowel obstruction pattern
[2025-03-12] MEDS: PANTOPRAZOLE INJ 40 MG VIAL IVP (08:09)
[2025-03-12] MEDS: ENOXAPARIN SOD INJ 40 MG/0.4 ML SYRINGE SC (08:09)
--- NOTE | 2025-03-12 09:48 | PC.SS ---
Anthony Hernández is a 64 year-old male admitted to [facility] for SBO. SS conducted bedside contact with the patient to complete initial assessment and to discuss discharge planning.? Patient confirmed demographic information. Patient identifies his Sister Shayy Hernández [phone] as his surrogate decision maker. Patient resides at home alone. Pt states he is able to complete all ADL?s independently, no need for any source of DME. Pts PCP is Dr. Sanchez (last visit about 3 months ago) and pharmacy of choice is [facility] [place]. DC option discussed and pt wishes to return home, family will provide transport upon DC. No further intervention required at this time, social service agency director would be available to address any further concerns. DC Plan: Home Contact: Sister, Shayy ?
--- NOTE | 2025-03-12 09:50 | PC.SS ---
Anthony Hernández is a 64 year-old male admitted to [place] for SBO. SS conducted bedside contact with the patient to complete initial assessment and to discuss discharge planning.? Patient confirmed demographic information. Patient identifies his Sister Shayy Hernández [phone] as his surrogate decision maker. Patient resides at home alone. Pt states he is able to complete all ADL?s independently, no need for any source of DME. Pts PCP is Dr. Sanchez (last visit about 3 months ago) and [place] [facility] [place] discussed and pt wishes to return home, family will provide transport upon DC. No further intervention required at this time, nephrology social worker would be available to address any further concerns. DC Plan: Home Contact: Sister, Shayy ?
--- NOTE | 2025-03-12 13:13 | PC.SS ---
Rounding: Pending GI consult, will return home upon DC
--- NOTE | 2025-03-12 13:14 | PC.SS ---
Rounding: Pending Small Bowel Series and Dr. Agrawal consult, will return home upon DC
[2025-03-12] MEDS: LACTULOSE SYRUP 20 GM/30 ML UDC 30 GM NG (15:56)
[2025-03-12] MEDS: bisacodyL 10 MG SUPP PR (15:56)
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
--- NOTE | 2025-03-12 17:26 | ESPR_ITS ---
<Statement entered by Jeromy Vasquez MD - 03/18/25 16:22> I reviewed above note and agree with findings and plans. I have also personally examined the patient with medicine team and went over assessment and plan with medical team including development intern and resident physician. Documentation for date of: 03/12/25 Subjective Subjective Interval history: Patient seen today at the bedside found awake, alert, orientedx3. No overnight events reported. Vitals and labs reviewed. Abdominal distention somewhat improved. In the afternoon patient was able to have a bowel movement, NG tube discontinued and patient was started on full liquid diet. Exam Vital Signs Temp Pulse Resp BP Pulse Ox O2 Del Method O2 Flow Rate 97.1 F 85 19 148/78 H 92 L Nasal Cannula 2 03/12/25 16:00 03/12/25 16:00 03/12/25 16:00 03/12/25 16:00 03/12/25 16:00 03/12/25 16:00 03/12/25 16:00 Narrative Exam Physical Exam GENERAL: NAD, AAOx3 HEENT: Moist mucosa. Eyes open, symmetrical, & clear CARDIO: Heart RRR, no obvious murmurs PULM: No noted coughing/dyspnea CTA B/L, no R/W/R GI: Abdomen soft, distended-improved, no pain on palpation. BSx4 SKIN/MSK/EXT: No wounds/rashes/edema/amputations, no pain on palpation. Pedal pulses present B/L NEURO: AAOx3, no focal neuro deficits, able to move all 4 extremities Objective Labs 03/12/25 05:13 03/12/25 05:13 Labs: Laboratory Results - last 24 hr 03/11/25 03/11/25 03/12/25 18:26 22:19 05:13 WBC 10.8 H RBC 4.70 Hgb 15.0 Hct 42.7 MCV 91 MCH 31.9 MCHC 35.1 RDW Std Deviation 46.9 H Plt Count 199 Neut % (Auto) 72 Lymph % (Auto) 7 L [place] % (Auto) 20 H Eos % (Auto) 0 Baso % (Auto) 0 Neut # (Auto) 7.8 H Lymph # (Auto) 0.8 L [place] # (Auto) 2.2 H Eos # (Auto) 0.0 Baso # (Auto) 0.0 Immature Gran # (Auto) 0.07 H Absolute Nucleated RBC 0.00 Immature Gran % 1 H Nucleated RBC % 0 Sodium 129 L 127 L 133 L Potassium 3.9 Chloride 98 Carbon Dioxide 25.2 Anion Gap 10 BUN 13 Creatinine 0.6 Estim Creat Clear Calc 149.4 eGFR > 60 BUN/Creatinine Ratio 22 H Glucose 107 H Calculated Osmolality 266 L Calcium 8.0 L Corrected Calcium 8.6 Phosphorus 3.2 Magnesium 2.2 Total Bilirubin 1.1 D AST 28 ALT 7 L Alkaline Phosphatase 70 Total Protein 6.0 Albumin 3.2 L Globulin 2.8 Albumin/Globulin Ratio 1.1 L Quality Measures Quality Measures none Assessment & Plan Assessment Current Active Medications: Generic Name Dose Route Start Last Admin Trade Name Freq PRN Reason Stop Dose Admin Acetaminophen 650 mg 03/11/25 13:13 Acetaminophen 325 Mg Tablet PO 04/10/25 13:12 Q6H PRN Fever >101.5 Acetaminophen 1,000 mg 03/11/25 13:13 Acetaminophen 500 Mg Tablet PO 04/10/25 13:12 Q6H PRN PAIN SCALE 1-3 (mild Enoxaparin Sodium 40 mg 03/12/25 09:00 03/12/25 08:09 Enoxaparin Sod Inj 40 Mg/0.4 Ml Syringe SC 03/26/25 08:59 40 mg QDAY RAMAN Administration Sodium Chloride 1,000 mls @ 75 mls/hr 03/11/25 13:39 03/12/25 02:45 Ns IV 04/10/25 13:38 75 mls/hr .[id number] RAMAN Administration Piperacillin/Tazobactam/Dextrose 3.375 gm in 50 mls @ 12.5 mls/hr 03/11/25 22:00 03/12/25 13:09 Zosyn IV 03/18/25 21:59 12.5 mls/hr Q8HR RAMAN Administration Lorazepam 0.5 mg 03/11/25 14:05 Lorazepam 0.5 Mg Tablet PO 03/16/25 14:04 Q4HR PRN CIWA Score 2-6 Lorazepam 0.5 mg 03/11/25 14:05 Lorazepam 2 Mg/Ml Vial IV 03/16/25 14:04 Q2HR PRN CIWA SCORE 7-13 Lorazepam 1 mg 03/11/25 14:05 Lorazepam 2 Mg/Ml Vial IV 03/16/25 14:04 Q2HR PRN CIWA SCORE 14-19 Lorazepam 2 mg 03/11/25 14:05 Lorazepam 2 Mg/Ml Vial IV 03/16/25 14:04 Q2HR PRN CIWA SCORE 20-25 Morphine Sulfate 2 mg 03/11/25 13:52 03/12/25 11:23 Morphine Sulf Inj 10 Mg/Ml Vial IVP 03/16/25 13:51 2 mg Q4HR PRN Administration PAIN RATED 4-10 Ondansetron HCl 4 mg 03/11/25 13:13 03/11/25 14:29 Ondansetron Inj 2 Mg/Ml Inj 2 Ml IV 04/10/25 13:12 4 mg Q6H PRN Administration NAUSEA OR VOMITING Protocol Pantoprazole Sodium 40 mg 03/12/25 09:00 03/12/25 08:09 Pantoprazole Inj 40 Mg Vial IVP 04/11/25 08:59 40 mg QDAY RAMAN Administration Pharmacy Consult 1 each 03/11/25 23:45 Pharmacy To Consult Patient XX 04/10/25 23:44 PRN PRN CONSULT Plan 64-year-old male active smoker with past medical history of hypertension, hyperlipidemia, bipolar disorder, paranoid schizophrenia, polysubstance use, presented to the ED due to back pain. Patient was admitted for small bowel obstruction. #Abdominal distention #High-grade mechanical bowel obstruction Patient with abdominal distention Patient has no history of abdominal surgeries Last bowel movement on 03/09/2025 Patient is passing flatus Patient had BM after lactulose, NGT dcd CTA abdomen pelvis negative ? Full liquid diet ? General Surgery consulted, appreciate recommendations ? Zofran for nausea ? Pantoprazole ? Zosyn ? morphine 2mg #Bibasilar Pneumonia CXR bibasilar PNA some subjective fevers, Leukocytosis - F/u Cultures - Zosyn #Urinary retention states hard to urinate with some blood - richards catheter in place #Hyponatremia-improving likely in the setting of beer potomania -monitor for now #Polysubstance use #Alcohol use disorder #Methamphetamine use #Active smoker Drinks 12 packs of beer per day, last drink saturday03/06/2025 Smokes a pack a day Patient uses methamphetamine, last use was on Saturday ? CIWA protocol ? Nicotine patch #Hypertension ?med rec ordered #Hx of bipolar #Hx of schizophrenia - pending med rec #Lactic acidosis-resolved Health Maintenance: Disposition: MedSurg Fluids: NS Feeding: N.p.o. Thrombo prophylaxis: Lovenox Gastric Ulcer prophylaxis: Pantoprazole CODE STATUS: Full code Case discussed with my attending Dr. Mikaela Sanchez MD PGY-1
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
[2025-03-12] MEDS: ACETAMINOPHEN 500 MG TABLET 1000 MG PO (21:25)
[2025-03-13] VITALS (14 sets, daily range): BP systolic 108–167; BP diastolic 60–100; PULSE 63–90; RESP 16–23; TEMP 36.1–37; O2SAT 89–99; BMI 27.2
--- NOTE | 2025-03-13 03:09 | PC.NURSE ---
Pt wants richards cath removed due to c/o excruciating pain at insertion site. Called MD, spoke with Dr. Philip and informed of pt's refusal to richards, will monitor urine output. Richards cath draining dark yellow urine, had 350 cc in the bag prior to DC'ing richards. Richards removed without any problem.
--- NOTE | 2025-03-13 04:57 | PC.NURSE ---
Pt's B/P elevated, 167/100, rechecked with result of 150/97. Dr Sevilla informed. Pt also been up to the bathroom, stated had BM twice and also urinated in the toilet therefore unable to document post void output.
[2025-03-13] MEDS: PIPER/TAZO 3.375 GM PREMIX 3.375 GM/50 ML BAG IV ×3 (05:29→21:03)
[2025-03-13] MEDS: Lisinopril 20 MG TABLET PO (05:29)
[2025-03-13 06:34] LABS: Basophils % (Auto) 0 % (0-2.5); Eosinophils % (Auto) 0 % (0-10); Hematocrit 38.5 % (41.0-53.0); Hemoglobin 13.4 g/dL (13.5-16.0); Immature Granulocytes % (Auto) 1 % (0-0); Immature Granulocytes Auto 0.15 Thou/mm3 (0.00-0.00); Lymphocytes # (Auto) 0.8 Thou/mm3 (1.0-4.8); Lymphocytes % (Auto) 7 % (10-50); Mean Corpuscular HGB Conc 34.8 g/dl (31.0-37.0); Mean Corpuscular Hemoglobin 32.1 pg (25.0-35.0); Mean Corpuscular Volume 92 fL (80-100); Monocytes # (Auto) 1.3 Thou/mm3 (0.0-0.8); Monocytes % (Auto) 12 % (0-12); Neutrophils # (Auto) 8.3 Thou/mm3 (1.8-7.7); Neutrophils % (Auto) 78 % (37-80); Nucleated Red Blood Cell % 0 /100 WBC (0); Platelet Count 215 Thou/mm3 (140-440); RDW Standard Deviation 47.8 fL (35.1-43.9); Red Blood Count 4.18 Miln/mm3 (4.50-5.90); White Blood Count 10.6 Thou/mm3 (3.8-10.6)
[2025-03-13 07:18] LABS: Alanine Aminotransferase < 7 U/L (10-49); Albumin/Globulin Ratio 1.2 (1.2-2.2); Alkaline Phosphatase 66 U/L (46-116); Anion Gap 8 (7-16); Aspartate Amino Transferase 24 U/L (0-34); BUN/Creatinine Ratio 24 Ratio (12-20); Bilirubin,Total 0.9 mg/dL (0.3-1.2); Blood Urea Nitrogen 12 mg/dL (9-23); Calcium 7.6 mg/dL (8.3-10.6); Calcium (Corrected) 8.4 mg/dL (8.5-10.1); Carbon Dioxide 27.8 mMol/L (20.0-31.0); Chloride 102 mMol/L (98-107); Creatinine (Component) 0.5 mg/dL (0.6-1.3); Estimated Creatinine Clearance 179.3 mL/min (>60); Globulin 2.6 gm/dL (2.3-3.5); Glucose 111 mg/dL (74-106); Osmolality,Calculated 276 (275-295); Phosphorous 2.1 mg/dL (2.4-5.1); Potassium 3.6 mMol/L (3.4-5.1); Sodium 138 mMol/L (136-145); Total Protein 5.6 gm/dL (5.7-8.2); eGFR > 60 See Note
[2025-03-13] MEDS: PANTOPRAZOLE INJ 40 MG VIAL IVP (08:46)
[2025-03-13] MEDS: ENOXAPARIN SOD INJ 40 MG/0.4 ML SYRINGE SC (08:46)
[2025-03-13] MEDS: OXYBUTYNIN CHLOR 5 MG TABLET PO ×2 (08:46→20:21)
[2025-03-13] MEDS: risperiDONE 1 MG TABLET 2 MG PO ×2 (08:46→20:20)
[2025-03-13] MEDS: ALBUTEROL/IPRATROPIUM (Duoneb) RT SOL 3 ML NEBU INH (09:28)
[2025-03-13] MEDS: guaiFENesin/DM TABLET 1 EACH PO (10:00)
--- NOTE | 2025-03-13 13:03 | PD.SURPROG ---
Documentation for date of: 03/13/25 Subjective Subjective Narrative: Patient is seen and examined. His abdominal pain is improving. His NG tube was removed and he was started on clear liquids. He is having bowel movements Exam Vital Signs Temp Pulse Resp BP Pulse Ox O2 Del Method O2 Flow Rate 97.4 F 85 18 164/98 H 96 Room Air 2 03/13/25 08:00 03/13/25 11:23 03/13/25 09:31 03/13/25 08:00 03/13/25 09:31 03/13/25 08:00 03/13/25 09:31 Constitutional Constitutional: no acute distress Routine Abdominal Exam Abdominal: Present soft and normoactive bowel sounds; Absent tenderness or distended Assessment & Plan Assessment Additional comments: Small bowel obstruction resolving Plan May advance diet as tolerated
--- NOTE | 2025-03-13 13:50 | ESPR_ITS ---
<Statement entered by Jeromy Vasquez MD - 03/18/25 16:23> I reviewed above note and agree with findings and plans. I have also personally examined the patient with medicine team and went over assessment and plan with medical team including jewelry internship and resident physician. Documentation for date of: 03/13/25 Subjective Subjective Interval history: Patient was seen and examined at bedside this AM. No acute events overnight. Patient tolerating liquid diet, adequate urine output and mentation is at baseline. He is endorses improvement of abdominal pain since multiple BMs over the last 12 hours. Abdominal distention has improved. General surgery following, appreciate input. Gave patient laxatives yesterday which seems to have resolved the partial SBO completely. Resumed home medications for hypertension and mood disorder. Pending GI recommendations re: colonoscopy to r/o colon CA , CEA levels ordered. Exam Vital Signs Temp Pulse Resp BP Pulse Ox O2 Del Method O2 Flow Rate 97.4 F 70 16 148/81 H 96 Room Air 2 03/13/25 12:00 03/13/25 12:00 03/13/25 12:00 03/13/25 12:00 03/13/25 12:00 03/13/25 12:00 03/13/25 09:31 Narrative Exam Constitutional Alert, oriented x3 and comfortable on 2L oxygen via NC HEENT Vision grossly intact. Patent nares. Trachea midline. Respiratory Chest normal on inspection and clear to auscultation bilaterally. Cardiovascular S1 and S2 audible, RRR. No murmurs or carotid bruit. No gross JVD. Abdominal Soft and BS + ; less distended, mildly tender to palpation in LT upper and lower quadrants. Genitourinary No bladder tenderness, no flank pain. Normal to palpation. Richards in place Musculoskeletal Extremities tone within normal limits. No LE edema. Neurological CN II - XII grossly intact. Extremity motor and sensation grossly intact. Skin Warm, dry and intact. No apparent lesions. Psychiatric Patient has a good affect, is cooperative. Objective Labs 03/13/25 05:42 03/13/25 05:42 Labs: Laboratory Results - last 24 hr 03/13/25 05:42 WBC 10.6 RBC 4.18 L Hgb 13.4 L Hct 38.5 L MCV 92 MCH 32.1 MCHC 34.8 RDW Std Deviation 47.8 H Plt Count 215 Neut % (Auto) 78 Lymph % (Auto) 7 L [place] % (Auto) 12 Eos % (Auto) 0 Baso % (Auto) 0 Neut # (Auto) 8.3 H Lymph # (Auto) 0.8 L [place] # (Auto) 1.3 H Eos # (Auto) 0.0 Baso # (Auto) 0.0 Immature Gran # (Auto) 0.15 H Absolute Nucleated RBC 0.00 Immature Gran % 1 H Nucleated RBC % 0 Sodium 138 Potassium 3.6 Chloride 102 Carbon Dioxide 27.8 Anion Gap 8 BUN 12 Creatinine 0.5 L Estim Creat Clear Calc 179.3 eGFR > 60 BUN/Creatinine Ratio 24 H Glucose 111 H Calculated Osmolality 276 Calcium 7.6 L Corrected Calcium 8.4 L Phosphorus 2.1 L Magnesium 2.0 Total Bilirubin 0.9 AST 24 ALT < 7 L Alkaline Phosphatase 66 Total Protein 5.6 L Albumin 3.0 L Globulin 2.6 Albumin/Globulin Ratio 1.2 Quality Measures Quality Measures none Assessment & Plan Assessment Current Active Medications: Generic Name Dose Route Start Last Admin Trade Name Freq PRN Reason Stop Dose Admin Acetaminophen 1,000 mg 03/13/25 13:45 Acetaminophen 500 Mg Tablet PO 04/10/25 13:12 Q6H PRN fever >99 Amlodipine Besylate 5 mg 03/13/25 21:00 Amlodipine Besylate 5 Mg Tablet PO 04/12/25 20:59 HS RAMAN Enoxaparin Sodium 40 mg 03/12/25 09:00 03/13/25 08:46 Enoxaparin Sod Inj 40 Mg/0.4 Ml Syringe SC 03/26/25 08:59 40 mg QDAY RAMAN Administration Guaifenesin/Dextromethorphan 1 each 03/13/25 09:15 03/13/25 10:00 Guaifenesin/Dm Tablet PO 04/12/25 09:14 1 each BID PRN Administration COUGH Piperacillin/Tazobactam/Dextrose 3.375 gm in 50 mls @ 12.5 mls/hr 03/11/25 22:00 03/13/25 13:34 Zosyn IV 03/18/25 21:59 12.5 mls/hr Q8HR RAMAN Administration Lisinopril 20 mg 03/13/25 05:00 03/13/25 05:29 Lisinopril 20 Mg Tablet PO 04/12/25 04:59 20 mg QDAY RAMAN Administration Lorazepam 0.5 mg 03/11/25 14:05 Lorazepam 2 Mg/Ml Vial IV 03/16/25 14:04 Q2HR PRN CIWA SCORE 7-13 Lorazepam 1 mg 03/11/25 14:05 Lorazepam 2 Mg/Ml Vial IV 03/16/25 14:04 Q2HR PRN CIWA SCORE 14-19 Metoclopramide HCl 10 mg 03/13/25 07:59 Metoclopramide Inj 5 Mg/Ml Vial 2 Ml IVP 04/12/25 07:58 Q6HR PRN NAUSEA OR VOMITING Protocol Oxybutynin Chloride 5 mg 03/13/25 09:00 03/13/25 08:46 Oxybutynin Chlor 5 Mg Tablet PO 04/12/25 08:59 5 mg BID RAMAN Administration Pantoprazole Sodium 40 mg 03/12/25 09:00 03/13/25 08:46 Pantoprazole Inj 40 Mg Vial IVP 04/11/25 08:59 40 mg QDAY RAMAN Administration Risperidone 2 mg 03/13/25 09:00 03/13/25 08:46 Risperidone 1 Mg Tablet PO 04/12/25 08:59 2 mg BID RAMAN Administration Sertraline HCl 100 mg 03/13/25 21:00 Sertraline Hcl 25 Mg Tablet PO 04/12/25 20:59 HS RAMAN Plan Mr Hernández is a 64-year-old male active smoker with past medical history of hypertension, hyperlipidemia, bipolar disorder, paranoid schizophrenia, polysubstance use, presented to the ED due to back pain. Patient was admitted for small bowel obstruction. Abdominal distention - improving High-grade mechanical bowel obstruction - resolved Patient with abdominal distention Patient has no history of abdominal surgeries Last bowel movement on 03/09/2025. Patient is passing flatus Patient had BM after lactulose, NGT dcd CTA abdomen pelvis negative 03/13 : improvement of abdominal pain and distention, since multiple BMs over the last 12 hours after laxatives given by GenSurg Plan: ? Full liquid diet --> Dysphagia 1 puree ? General Surgery following, appreciate input ? PRN Reglan q6H for nausea ? Pantoprazole 40mg qD ? Contine IV Zosyn 3.375 q8H (03/11 - ). Will transition to PO tomorrow in preparation for DC. - GI consulted, appreciate recs. Pending final recommendations re: colonoscopy to r/o colon CA - Follow up CEA levels Lactic acidosis-resolved Bibasilar Pneumonia CXR : questionable bibasilar PNA some subjective fevers, Leukocytosis resolved Plan: - MRSA negative - Blood cultures negative - On IV Zosyn Urinary retention 2/2 TERRAZAS Hyponatremia- resolved states hard to urinate with some blood likely in the setting of beer potomania Plan: - richards catheter in place - Urine culture show contamination, largely negative. Polysubstance use Alcohol use disorder Methamphetamine use Active smoker Drinks 12 packs of beer per day, last drink saturday03/06/2025 Smokes a pack a day Patient uses methamphetamine, last use was on Saturday Plan: ? CIWA protocol ? Nicotine patch Primary Hypertension BP trending 140-170/ 90-110s Plan: - Resumed home Lisinopril 20mg qD - Added amlodipine 5mg HS for optimization Hx of bipolar Hx of schizophrenia Plan: - Resumed home Risperidone 2mg BID - Resumed home Sertraline at reduced dose of 100mg HS. Takes 200mg at home. Health Maintenance: Disposition: MedSurg. Pending GI recs regarding colonoscopy Fluids: NS Feeding: Liquid diet -> Dysphagia 1 carb consis Thrombo prophylaxis: Lovenox Gastric Ulcer prophylaxis: Pantoprazole CODE STATUS: Full code Plan of care discussed with attending Dr Vasquez, - Rodriguez Rehman M.D. PGY2 Disclaimer: Minor errors in cigar head puncher may be present as this note was dictated using voice recognition software.
[2025-03-13] MEDS: NAPH,KPH MBDB 1 PACKET (1.5 GM) PO (14:20)
[2025-03-13] MEDS: CALCIUM CARBONATE 600 MG TABLET PO (14:20)
[2025-03-13] MEDS: traMADol HCL 50 MG TABLET 100 MG PO (17:23)
--- NOTE | 2025-03-13 19:31 | ESPR_ITS ---
Documentation for date of: 03/13/25 Subjective Subjective Interval history: Patient having bowel movements passing flatus Exam Vital Signs Temp Pulse Resp BP Pulse Ox O2 Del Method O2 Flow Rate 97.6 F 86 19 108/60 95 Room Air 2 03/13/25 16:00 03/13/25 16:00 03/13/25 16:00 03/13/25 16:00 03/13/25 16:00 03/13/25 16:00 03/13/25 09:31 Objective Labs 03/13/25 05:42 03/13/25 05:42 Labs: Laboratory Results - last 24 hr 03/13/25 05:42 WBC 10.6 RBC 4.18 L Hgb 13.4 L Hct 38.5 L MCV 92 MCH 32.1 MCHC 34.8 RDW Std Deviation 47.8 H Plt Count 215 Neut % (Auto) 78 Lymph % (Auto) 7 L [place] % (Auto) 12 Eos % (Auto) 0 Baso % (Auto) 0 Neut # (Auto) 8.3 H Lymph # (Auto) 0.8 L [place] # (Auto) 1.3 H Eos # (Auto) 0.0 Baso # (Auto) 0.0 Immature Gran # (Auto) 0.15 H Absolute Nucleated RBC 0.00 Immature Gran % 1 H Nucleated RBC % 0 Sodium 138 Potassium 3.6 Chloride 102 Carbon Dioxide 27.8 Anion Gap 8 BUN 12 Creatinine 0.5 L Estim Creat Clear Calc 179.3 eGFR > 60 BUN/Creatinine Ratio 24 H Glucose 111 H Calculated Osmolality 276 Calcium 7.6 L Corrected Calcium 8.4 L Phosphorus 2.1 L Magnesium 2.0 Total Bilirubin 0.9 AST 24 ALT < 7 L Alkaline Phosphatase 66 Total Protein 5.6 L Albumin 3.0 L Globulin 2.6 Albumin/Globulin Ratio 1.2 Impressions Impression: Small bowel obstruction resolved Advance diet as tolerated Assessment & Plan A&P Narrative # Small bowel obstruction resolving with the current small bowel follow-through showing contrast in the right colon Suggestions Keep the patient n.p.o. till he has a bowel movement and no more nausea vomiting Then advance to clear liquid diet # Cirrhosis liver with mild ascites secondary to chronic consumption of alcohol Advised complete abstinence from alcohol Should have upper endoscopy for possible prophylactic medication of the esophageal varices which can be done as an outpatient Other medical problems include Chronic drug abuse with toxicology positive for methamphetamine Hypertension Hyperlipidemia Schizophrenia Thank you very much for the opportunity to participate in care of this patient Time Spent With Patient Time: Total time spent is greater than 50% in coordination of care (as documented) at patient's floor/unit and/or counseling patient:
[2025-03-13] MEDS: amLODIPine BESYLATE 5 MG TABLET PO (20:20)
[2025-03-13] MEDS: SERTRALINE HCL 25 MG TABLET 100 MG PO (20:21)
[2025-03-14] VITALS (12 sets, daily range): BP systolic 139–165; BP diastolic 79–96; PULSE 71–98; RESP 17–93; TEMP 35.9–37.1; O2SAT 90–96
[2025-03-14] MEDS: PIPER/TAZO 3.375 GM PREMIX 3.375 GM/50 ML BAG IV ×3 (05:02→21:29)
[2025-03-14 06:01] LABS: Basophils % (Auto) 0 % (0-2.5); Eosinophils # (Auto) 0.1 Thou/mm3 (0.0-0.5); Eosinophils % (Auto) 1 % (0-10); Hematocrit 39.3 % (41.0-53.0); Hemoglobin 13.1 g/dL (13.5-16.0); Immature Granulocytes % (Auto) 2 % (0-0); Immature Granulocytes Auto 0.13 Thou/mm3 (0.00-0.00); Lymphocytes # (Auto) 0.9 Thou/mm3 (1.0-4.8); Lymphocytes % (Auto) 11 % (10-50); Mean Corpuscular HGB Conc 33.3 g/dl (31.0-37.0); Mean Corpuscular Hemoglobin 31.1 pg (25.0-35.0); Mean Corpuscular Volume 93 fL (80-100); Monocytes % (Auto) 12 % (0-12); Neutrophils # (Auto) 6.5 Thou/mm3 (1.8-7.7); Neutrophils % (Auto) 75 % (37-80); Nucleated Red Blood Cell % 0 /100 WBC (0); Platelet Count 187 Thou/mm3 (140-440); RDW Standard Deviation 48.8 fL (35.1-43.9); Red Blood Count 4.21 Miln/mm3 (4.50-5.90); White Blood Count 8.7 Thou/mm3 (3.8-10.6)
[2025-03-14 06:45] LABS: Alanine Aminotransferase < 7 U/L (10-49); Albumin, Serum 2.9 gm/dL (3.4-4.8); Albumin/Globulin Ratio 1.2 (1.2-2.2); Alkaline Phosphatase 59 U/L (46-116); Anion Gap 4 (7-16); Aspartate Amino Transferase 21 U/L (0-34); BUN/Creatinine Ratio 18 Ratio (12-20); Bilirubin,Total 0.7 mg/dL (0.3-1.2); Blood Urea Nitrogen 9 mg/dL (9-23); Calcium 7.8 mg/dL (8.3-10.6); Calcium (Corrected) 8.7 mg/dL (8.5-10.1); Carbon Dioxide 30.8 mMol/L (20.0-31.0); Chloride 101 mMol/L (98-107); Creatinine (Component) 0.5 mg/dL (0.6-1.3); Estimated Creatinine Clearance 179.3 mL/min (>60); Globulin 2.4 gm/dL (2.3-3.5); Glucose 113 mg/dL (74-106); Magnesium 1.8 mg/dL (1.6-2.6); Osmolality,Calculated 271 (275-295); Phosphorous 2.5 mg/dL (2.4-5.1); Potassium 3.9 mMol/L (3.4-5.1); Sodium 136 mMol/L (136-145); Total Protein 5.3 gm/dL (5.7-8.2); eGFR > 60 See Note
--- NOTE | 2025-03-14 07:10 | ESPR_ITS ---
<Statement entered by Jeromy Vasquez MD - 03/18/25 16:24> I reviewed above note and agree with findings and plans. I have also personally examined the patient with medicine team and went over assessment and plan with medical team including production intern and resident physician. Documentation for date of: 03/14/25 Subjective Subjective Interval history: Vitals and labs reviewed. SBO seems to have resolved, continue to advancing diet. pending GI reccs Exam Vital Signs Temp Pulse Resp BP Pulse Ox O2 Del Method O2 Flow Rate 96.9 F 86 20 165/79 H 96 Room Air 2 03/14/25 04:00 03/14/25 06:59 03/14/25 06:59 03/14/25 04:00 03/14/25 06:59 03/14/25 04:00 03/14/25 06:59 Narrative Exam Constitutional Alert, oriented x3 and comfortable on 2L oxygen via NC HEENT Vision grossly intact. Patent nares. Trachea midline. Respiratory Chest normal on inspection and clear to auscultation bilaterally. Cardiovascular S1 and S2 audible, RRR. No murmurs or carotid bruit. No gross JVD. Abdominal Soft and BS + ; less distended, mildly tender to palpation in LT upper and lower quadrants. Genitourinary No bladder tenderness, no flank pain. Normal to palpation. Richards in place Musculoskeletal Extremities tone within normal limits. No LE edema. Neurological CN II - XII grossly intact. Extremity motor and sensation grossly intact. Skin Warm, dry and intact. No apparent lesions. Psychiatric Patient has a good affect, is cooperative. Objective Labs 03/14/25 05:16 03/14/25 05:16 Labs: Laboratory Results - last 24 hr 03/13/25 03/14/25 05:42 05:16 WBC 8.7 RBC 4.21 L Hgb 13.1 L Hct 39.3 L MCV 93 MCH 31.1 MCHC 33.3 RDW Std Deviation 48.8 H Plt Count 187 Neut % (Auto) 75 Lymph % (Auto) 11 [place] % (Auto) 12 Eos % (Auto) 1 Baso % (Auto) 0 Neut # (Auto) 6.5 Lymph # (Auto) 0.9 L [place] # (Auto) 1.0 H Eos # (Auto) 0.1 Baso # (Auto) 0.0 Immature Gran # (Auto) 0.13 H Absolute Nucleated RBC 0.00 Immature Gran % 2 H Nucleated RBC % 0 Sodium 138 136 Potassium 3.6 3.9 Chloride 102 101 Carbon Dioxide 27.8 30.8 Anion Gap 8 4 L BUN 12 9 Creatinine 0.5 L 0.5 L Estim Creat Clear Calc 179.3 179.3 eGFR > 60 > 60 BUN/Creatinine Ratio 24 H 18 Glucose 111 H 113 H Calculated Osmolality 276 271 L Calcium 7.6 L 7.8 L Corrected Calcium 8.4 L 8.7 Phosphorus 2.1 L 2.5 Magnesium 2.0 1.8 Total Bilirubin 0.9 0.7 AST 24 21 ALT < 7 L < 7 L Alkaline Phosphatase 66 59 Total Protein 5.6 L 5.3 L Albumin 3.0 L 2.9 L Globulin 2.6 2.4 Albumin/Globulin Ratio 1.2 1.2 Quality Measures Quality Measures none Assessment & Plan Assessment Current Active Medications: Generic Name Dose Route Start Last Admin Trade Name Freq PRN Reason Stop Dose Admin Acetaminophen 1,000 mg 03/13/25 13:45 Acetaminophen 500 Mg Tablet PO 04/10/25 13:12 Q6H PRN fever >99 Amlodipine Besylate 5 mg 03/13/25 21:00 03/13/25 20:20 Amlodipine Besylate 5 Mg Tablet PO 04/12/25 20:59 5 mg HS RAMAN Administration Enoxaparin Sodium 40 mg 03/12/25 09:00 03/13/25 08:46 Enoxaparin Sod Inj 40 Mg/0.4 Ml Syringe SC 03/26/25 08:59 40 mg QDAY RAMAN Administration Guaifenesin/Dextromethorphan 1 each 03/13/25 09:15 03/13/25 10:00 Guaifenesin/Dm Tablet PO 04/12/25 09:14 1 each BID PRN Administration COUGH Piperacillin/Tazobactam/Dextrose 3.375 gm in 50 mls @ 12.5 mls/hr 03/11/25 22:00 03/14/25 05:02 Zosyn IV 03/18/25 21:59 12.5 mls/hr Q8HR RAMAN Administration Lisinopril 20 mg 03/13/25 05:00 03/13/25 05:29 Lisinopril 20 Mg Tablet PO 04/12/25 04:59 20 mg QDAY RAMAN Administration Lorazepam 0.5 mg 05/15/25 14:05 Lorazepam 2 Mg/Ml Vial IV 03/16/25 14:04 Q2HR PRN CIWA SCORE 7-13 Lorazepam 1 mg 03/11/25 14:05 Lorazepam 2 Mg/Ml Vial IV 03/16/25 14:04 Q2HR PRN CIWA SCORE 14-19 Metoclopramide HCl 10 mg 03/13/25 07:59 Metoclopramide Inj 5 Mg/Ml Vial 2 Ml IVP 04/12/25 07:58 Q6HR PRN NAUSEA OR VOMITING Protocol Oxybutynin Chloride 5 mg 03/13/25 09:00 03/13/25 20:21 Oxybutynin Chlor 5 Mg Tablet PO 04/12/25 08:59 5 mg BID RAMAN Administration Pantoprazole Sodium 40 mg 03/12/25 09:00 03/13/25 08:46 Pantoprazole Inj 40 Mg Vial IVP 04/11/25 08:59 40 mg QDAY RAMAN Administration Risperidone 2 mg 03/13/25 09:00 03/13/25 20:20 Risperidone 1 Mg Tablet PO 04/12/25 08:59 2 mg BID RAMAN Administration Sennosides 1 tab 03/13/25 19:38 Senna Tablet PO 04/12/25 19:37 QDAY PRN CONSTIPATION Protocol Sertraline HCl 100 mg 03/13/25 21:00 03/13/25 20:21 Sertraline Hcl 25 Mg Tablet PO 04/12/25 20:59 100 mg HS RAMAN Administration Tramadol HCl 100 mg 03/13/25 17:11 03/13/25 17:23 Tramadol Hcl 50 Mg Tablet PO 03/18/25 17:10 100 mg Q6HR PRN Administration PAIN SCALE 4-10(Mod-Sev Plan Mr Hernández is a 64-year-old male active smoker with past medical history of hypertension, hyperlipidemia, bipolar disorder, paranoid schizophrenia, polysubstance use, presented to the ED due to back pain. Patient was admitted for small bowel obstruction. Abdominal distention - improving High-grade mechanical bowel obstruction - resolved Patient with abdominal distention Patient has no history of abdominal surgeries Last bowel movement on 03/09/2025. Patient is passing flatus Patient had BM after lactulose, NGT dcd CTA abdomen pelvis negative 03/13 : improvement of abdominal pain and distention, since multiple BMs over the last 12 hours after laxatives given by GenSurg Plan: ? Carb consistnet low ? General Surgery following, appreciate input ? PRN Reglan q6H for nausea ? Pantoprazole 40mg qD ? Contine IV Zosyn 3.375 q8H (03/11 - ). Will transition to PO tomorrow in preparation for DC. - GI consulted, appreciate recs. Pending final recommendations re: colonoscopy to r/o colon CA - Follow up CEA levels Lactic acidosis-resolved Bibasilar Pneumonia CXR : questionable bibasilar PNA some subjective fevers, Leukocytosis resolved Plan: - MRSA negative - Blood cultures negative - On IV Zosyn Urinary retention 2/2 TERRAZAS Hyponatremia- resolved states hard to urinate with some blood likely in the setting of beer potomania Plan: - richards catheter in place - Urine culture show contamination, largely negative. Polysubstance use Alcohol use disorder Methamphetamine use Active smoker Drinks 12 packs of beer per day, last drink saturday03/06/2025 Smokes a pack a day Patient uses methamphetamine, last use was on Saturday Plan: ? CIWA protocol ? Nicotine patch Primary Hypertension BP trending 140-170/ 90-110s Plan: - Resumed home Lisinopril 20mg qD - Added amlodipine 5mg HS for optimization Hx of bipolar Hx of schizophrenia Plan: - Resumed home Risperidone 2mg BID - Resumed home Sertraline at reduced dose of 100mg HS. Takes 200mg at home. Health Maintenance: Disposition: MedSurg. Pending GI recs regarding colonoscopy Fluids: NS Feeding: Liquid diet -> Dysphagia 1 carb consis Thrombo prophylaxis: Lovenox Gastric Ulcer prophylaxis: Pantoprazole CODE STATUS: Full code Case discussed with my attending Dr. Christina Sanchez MD PGY-1
[2025-03-14] MEDS: OXYBUTYNIN CHLOR 5 MG TABLET PO ×2 (07:34→20:17)
[2025-03-14] MEDS: Lisinopril 20 MG TABLET PO (07:35)
[2025-03-14] MEDS: ENOXAPARIN SOD INJ 40 MG/0.4 ML SYRINGE SC (07:36)
[2025-03-14] MEDS: PANTOPRAZOLE INJ 40 MG VIAL IVP (07:36)
[2025-03-14] MEDS: risperiDONE 1 MG TABLET 2 MG PO ×2 (07:37→20:16)
--- NOTE | 2025-03-14 16:46 | PC.NURSE ---
[facility]14[facility]2025 from [id number].
[2025-03-14] MEDS: amLODIPine BESYLATE 5 MG TABLET PO (20:16)
[2025-03-14] MEDS: SERTRALINE HCL 25 MG TABLET 100 MG PO (20:16)
[2025-03-14] MEDS: ACETAMINOPHEN 500 MG TABLET 1000 MG PO (20:17)
--- NOTE | 2025-03-14 21:26 | ESPR_ITS ---
Documentation for date of: 03/14/25 Subjective Subjective Interval history: Patient tolerating diet Passing gas Having bowel movements Exam Vital Signs Temp Pulse Resp BP Pulse Ox O2 Del Method O2 Flow Rate 98.1 F 91 18 139/85 H 95 Nasal Cannula 2 03/14/25 20:00 03/14/25 20:16 03/14/25 20:00 03/14/25 20:16 03/14/25 20:00 03/14/25 20:00 03/14/25 06:59 Objective Labs 03/14/25 05:16 03/14/25 05:16 Labs: Laboratory Results - last 24 hr 03/14/25 05:16 WBC 8.7 RBC 4.21 L Hgb 13.1 L Hct 39.3 L MCV 93 MCH 31.1 MCHC 33.3 RDW Std Deviation 48.8 H Plt Count 187 Neut % (Auto) 75 Lymph % (Auto) 11 [place] % (Auto) 12 Eos % (Auto) 1 Baso % (Auto) 0 Neut # (Auto) 6.5 Lymph # (Auto) 0.9 L [place] # (Auto) 1.0 H Eos # (Auto) 0.1 Baso # (Auto) 0.0 Immature Gran # (Auto) 0.13 H Absolute Nucleated RBC 0.00 Immature Gran % 2 H Nucleated RBC % 0 Sodium 136 Potassium 3.9 Chloride 101 Carbon Dioxide 30.8 Anion Gap 4 L BUN 9 Creatinine 0.5 L Estim Creat Clear Calc 179.3 eGFR > 60 BUN/Creatinine Ratio 18 Glucose 113 H Calculated Osmolality 271 L Calcium 7.8 L Corrected Calcium 8.7 Phosphorus 2.5 Magnesium 1.8 Total Bilirubin 0.7 AST 21 ALT < 7 L Alkaline Phosphatase 59 Total Protein 5.3 L Albumin 2.9 L Globulin 2.4 Albumin/Globulin Ratio 1.2 Impressions Impression: Resolved small bowel obstruction/ileus Ambulate Continue current management Assessment & Plan A&P Narrative # Small bowel obstruction resolving with the current small bowel follow-through showing contrast in the right colon Suggestions Keep the patient n.p.o. till he has a bowel movement and no more nausea vomiting Then advance to clear liquid diet # Cirrhosis liver with mild ascites secondary to chronic consumption of alcohol Advised complete abstinence from alcohol Should have upper endoscopy for possible prophylactic medication of the esophageal varices which can be done as an outpatient Other medical problems include Chronic drug abuse with toxicology positive for methamphetamine Hypertension Hyperlipidemia Schizophrenia Thank you very much for the opportunity to participate in care of this patient Time Spent With Patient Time: Total time spent is greater than 50% in coordination of care (as documented) at patient's floor/unit and/or counseling patient:
[2025-03-14 22:39] LABS: Carcinoembryonic Antigen 1.6 ng/mL (0.0-5.0)
[2025-03-15] VITALS (9 sets, daily range): BP systolic 117–146; BP diastolic 58–96; PULSE 56–96; RESP 16–94; TEMP 36.1–36.6; O2SAT 91–97
[2025-03-15] MEDS: BENZOCAINE/MENTHOL 1 LOZENGE PO (01:56)
[2025-03-15] MEDS: PIPER/TAZO 3.375 GM PREMIX 3.375 GM/50 ML BAG IV ×3 (05:33→21:15)
[2025-03-15 05:50] LABS: Basophils % (Auto) 0 % (0-2.5); Eosinophils # (Auto) 0.1 Thou/mm3 (0.0-0.5); Eosinophils % (Auto) 1 % (0-10); Hematocrit 37.1 % (41.0-53.0); Immature Granulocytes % (Auto) 1 % (0-0); Immature Granulocytes Auto 0.13 Thou/mm3 (0.00-0.00); Lymphocytes # (Auto) 0.8 Thou/mm3 (1.0-4.8); Lymphocytes % (Auto) 6 % (10-50); Mean Corpuscular Hemoglobin 31.9 pg (25.0-35.0); Mean Corpuscular Volume 91 fL (80-100); Monocytes # (Auto) 1.1 Thou/mm3 (0.0-0.8); Monocytes % (Auto) 9 % (0-12); Neutrophils # (Auto) 10.4 Thou/mm3 (1.8-7.7); Neutrophils % (Auto) 83 % (37-80); Nucleated Red Blood Cell % 0 /100 WBC (0); Platelet Count 179 Thou/mm3 (140-440); RDW Standard Deviation 47.8 fL (35.1-43.9); Red Blood Count 4.07 Miln/mm3 (4.50-5.90); White Blood Count 12.5 Thou/mm3 (3.8-10.6)
[2025-03-15 06:18] LABS: Alanine Aminotransferase < 7 U/L (10-49); Albumin, Serum 2.7 gm/dL (3.4-4.8); Alkaline Phosphatase 60 U/L (46-116); Anion Gap 6 (7-16); Aspartate Amino Transferase 29 U/L (0-34); BUN/Creatinine Ratio 16 Ratio (12-20); Bilirubin,Total 0.8 mg/dL (0.3-1.2); Blood Urea Nitrogen 8 mg/dL (9-23); Calcium 7.8 mg/dL (8.3-10.6); Calcium (Corrected) 8.8 mg/dL (8.5-10.1); Carbon Dioxide 31.1 mMol/L (20.0-31.0); Chloride 100 mMol/L (98-107); Creatinine (Component) 0.5 mg/dL (0.6-1.3); Estimated Creatinine Clearance 179.3 mL/min (>60); Globulin 2.6 gm/dL (2.3-3.5); Glucose 140 mg/dL (74-106); Magnesium 1.9 mg/dL (1.6-2.6); Osmolality,Calculated 274 (275-295); Phosphorous 3.1 mg/dL (2.4-5.1); Sodium 137 mMol/L (136-145); Total Protein 5.3 gm/dL (5.7-8.2); eGFR > 60 See Note
--- NOTE | 2025-03-15 07:53 | PD.SURPROG ---
Documentation for date of: 03/15/25 Subjective Subjective Narrative: Patient is seen and examined. He is resting comfortably. He is tolerating diet without nausea or vomiting and having bowel movements Exam Vital Signs Temp Pulse Resp BP Pulse Ox O2 Del Method O2 Flow Rate 97.1 F 87 18 146/79 H 92 L Nasal Cannula 2 03/15/25 04:00 03/15/25 04:00 03/15/25 04:00 03/15/25 04:00 03/15/25 04:00 03/15/25 04:00 03/15/25 04:00 Constitutional Constitutional: no acute distress Routine Abdominal Exam Comments: Abdomen is soft and nondistended. No tenderness to palpation Assessment & Plan Assessment Additional comments: Small bowel obstruction resolving Plan Patient can be discharged from surgical standpoint. I will sign off, please call for any questions
[2025-03-15] MEDS: ENOXAPARIN SOD INJ 40 MG/0.4 ML SYRINGE SC (08:49)
[2025-03-15] MEDS: risperiDONE 1 MG TABLET 2 MG PO ×2 (08:50→21:16)
[2025-03-15] MEDS: OXYBUTYNIN CHLOR 5 MG TABLET PO ×2 (08:50→21:20)
[2025-03-15] MEDS: Lisinopril 20 MG TABLET PO (08:50)
[2025-03-15] MEDS: PANTOPRAZOLE INJ 40 MG VIAL IVP (08:50)
--- NOTE | 2025-03-15 09:39 | PD.IMPROG ---
Documentation for date of: 03/15/25 Subjective Subjective Interval history: Tolerating diet and having bowel movements Exam Vital Signs Temp Pulse Resp BP Pulse Ox O2 Del Method O2 Flow Rate 97.4 F 93 19 136/96 H 92 L Room Air 2 03/15/25 08:00 03/15/25 08:50 03/15/25 08:00 03/15/25 08:50 03/15/25 08:00 03/15/25 08:00 03/15/25 04:00 Objective Labs 03/15/25 11:00 03/15/25 04:53 Labs: Laboratory Results - last 24 hr 03/13/25 03/15/25 05:42 04:53 WBC 12.5 H D RBC 4.07 L Hgb 13.0 L Hct 37.1 L MCV 91 MCH 31.9 MCHC 35.0 RDW Std Deviation 47.8 H Plt Count 179 Neut % (Auto) 83 H Lymph % (Auto) 6 L [place] % (Auto) 9 Eos % (Auto) 1 Baso % (Auto) 0 Neut # (Auto) 10.4 H Lymph # (Auto) 0.8 L [place] # (Auto) 1.1 H Eos # (Auto) 0.1 Baso # (Auto) 0.0 Immature Gran # (Auto) 0.13 H Absolute Nucleated RBC 0.00 Immature Gran % 1 H Nucleated RBC % 0 Sodium 137 Potassium 4.0 Chloride 100 Carbon Dioxide 31.1 H Anion Gap 6 L BUN 8 L Creatinine 0.5 L Estim Creat Clear Calc 179.3 eGFR > 60 BUN/Creatinine Ratio 16 Glucose 140 H Calculated Osmolality 274 L Calcium 7.8 L Corrected Calcium 8.8 Phosphorus 3.1 Magnesium 1.9 Total Bilirubin 0.8 AST 29 ALT < 7 L Alkaline Phosphatase 60 Total Protein 5.3 L Albumin 2.7 L Globulin 2.6 Albumin/Globulin Ratio 1.0 L Carcinoembryonic Ag 1.6 Impressions Impression: Resolved small bowel obstruction Ambulate No invasive GI workup planned Assessment & Plan A&P Narrative # Small bowel obstruction resolving with the current small bowel follow-through showing contrast in the right colon Suggestions Keep the patient n.p.o. till he has a bowel movement and no more nausea vomiting Then advance to clear liquid diet # Cirrhosis liver with mild ascites secondary to chronic consumption of alcohol Advised complete abstinence from alcohol Should have upper endoscopy for possible prophylactic medication of the esophageal varices which can be done as an outpatient Other medical problems include Chronic drug abuse with toxicology positive for methamphetamine Hypertension Hyperlipidemia Schizophrenia Thank you very much for the opportunity to participate in care of this patient Time Spent With Patient Time: Total time spent is greater than 50% in coordination of care (as documented) at patient's floor/unit and/or counseling patient:
[2025-03-15 11:17] LABS: Basophils % (Auto) 0 % (0-2.5); Eosinophils # (Auto) 0.1 Thou/mm3 (0.0-0.5); Eosinophils % (Auto) 1 % (0-10); Hematocrit 36.9 % (41.0-53.0); Hemoglobin 12.4 g/dL (13.5-16.0); Immature Granulocytes % (Auto) 2 % (0-0); Immature Granulocytes Auto 0.19 Thou/mm3 (0.00-0.00); Lymphocytes # (Auto) 0.8 Thou/mm3 (1.0-4.8); Lymphocytes % (Auto) 6 % (10-50); Mean Corpuscular HGB Conc 33.6 g/dl (31.0-37.0); Mean Corpuscular Hemoglobin 31.5 pg (25.0-35.0); Mean Corpuscular Volume 94 fL (80-100); Monocytes # (Auto) 1.1 Thou/mm3 (0.0-0.8); Monocytes % (Auto) 9 % (0-12); Neutrophils # (Auto) 10.6 Thou/mm3 (1.8-7.7); Neutrophils % (Auto) 83 % (37-80); Nucleated Red Blood Cell % 0 /100 WBC (0); Platelet Count 196 Thou/mm3 (140-440); RDW Standard Deviation 49.3 fL (35.1-43.9); Red Blood Count 3.94 Miln/mm3 (4.50-5.90); White Blood Count 12.7 Thou/mm3 (3.8-10.6)
--- NOTE | 2025-03-15 13:15 | ESPR_ITS ---
Documentation for date of: 03/15/25 Subjective Subjective Interval history: Patient seen today at the bedside found awake, alert, orientedx3. No active complaints at this time. No overnight events reported. Vitals and labs reviewed. Patient currently tolerating diet and having bowel movements. CEA levels were found within normal limits. Patient is recommended to follow up with GI services as outpatient as there is concern for possible cancer given his presentation and lack of risk factors. Exam Vital Signs Temp Pulse Resp BP Pulse Ox O2 Del Method O2 Flow Rate 97.4 F 85 18 136/96 H 92 L Room Air 2 03/15/25 08:00 03/15/25 11:50 03/15/25 11:50 03/15/25 08:50 03/15/25 08:00 03/15/25 08:00 03/15/25 04:00 Narrative Exam Physical Exam GENERAL: NAD, AAOx3 HEENT: Moist mucosa. Eyes open, symmetrical, & clear CARDIO: Heart RRR, no obvious murmurs PULM: No noted coughing/dyspnea CTA B/L, no R/W/R GI: Abdomen soft, distended-improved, no pain on palpation. BSx4 SKIN/MSK/EXT: No wounds/rashes/edema/amputations, no pain on palpation. Pedal pulses present B/L NEURO: AAOx3, no focal neuro deficits, able to move all 4 extremities Objective Labs 03/15/25 11:00 03/15/25 04:53 Labs: Laboratory Results - last 24 hr 03/13/25 03/15/25 03/15/25 05:42 04:53 11:00 WBC 12.5 H D 12.7 H RBC 4.07 L 3.94 L Hgb 13.0 L 12.4 L Hct 37.1 L 36.9 L MCV 91 94 MCH 31.9 31.5 MCHC 35.0 33.6 RDW Std Deviation 47.8 H 49.3 H Plt Count 179 196 Neut % (Auto) 83 H 83 H Lymph % (Auto) 6 L 6 L [place] % (Auto) 9 9 Eos % (Auto) 1 1 Baso % (Auto) 0 0 Neut # (Auto) 10.4 H 10.6 H Lymph # (Auto) 0.8 L 0.8 L [place] # (Auto) 1.1 H 1.1 H Eos # (Auto) 0.1 0.1 Baso # (Auto) 0.0 0.0 Immature Gran # (Auto) 0.13 H 0.19 H Absolute Nucleated RBC 0.00 0.00 Immature Gran % 1 H 2 H Nucleated RBC % 0 0 Sodium 137 Potassium 4.0 Chloride 100 Carbon Dioxide 31.1 H Anion Gap 6 L BUN 8 L Creatinine 0.5 L Estim Creat Clear Calc 179.3 eGFR > 60 BUN/Creatinine Ratio 16 Glucose 140 H Calculated Osmolality 274 L Calcium 7.8 L Corrected Calcium 8.8 Phosphorus 3.1 Magnesium 1.9 Total Bilirubin 0.8 AST 29 ALT < 7 L Alkaline Phosphatase 60 Total Protein 5.3 L Albumin 2.7 L Globulin 2.6 Albumin/Globulin Ratio 1.0 L Carcinoembryonic Ag 1.6 Quality Measures Quality Measures none Assessment & Plan Assessment Current Active Medications: Generic Name Dose Route Start Last Admin Trade Name Freq PRN Reason Stop Dose Admin Acetaminophen 1,000 mg 03/13/25 13:45 03/14/25 20:17 Acetaminophen 500 Mg Tablet PO 04/10/25 13:12 1,000 mg Q6H PRN Administration fever >99 Amlodipine Besylate 5 mg 03/13/25 21:00 03/14/25 20:16 Amlodipine Besylate 5 Mg Tablet PO 04/12/25 20:59 5 mg HS RAMAN Administration Benzocaine 1 lozenge 03/15/25 01:43 03/15/25 01:56 Benzocaine/Menthol 1 Lozenge PO 04/14/25 01:42 1 lozenge Q4HR PRN Administration SORE THROAT Enoxaparin Sodium 40 mg 03/12/25 09:00 03/15/25 08:49 Enoxaparin Sod Inj 40 Mg/0.4 Ml Syringe SC 03/26/25 08:59 40 mg QDAY RAMAN Administration Guaifenesin/Dextromethorphan 1 each 03/13/25 09:15 03/13/25 10:00 Guaifenesin/Dm Tablet PO 04/12/25 09:14 1 each BID PRN Administration COUGH Piperacillin/Tazobactam/Dextrose 3.375 gm in 50 mls @ 12.5 mls/hr 03/11/25 22:00 03/15/25 05:33 Zosyn IV 03/18/25 21:59 12.5 mls/hr Q8HR RAMAN Administration Lisinopril 20 mg 03/15/25 09:00 03/15/25 08:50 Lisinopril 20 Mg Tablet PO 04/14/25 08:59 20 mg QDAY RAMAN Administration Lorazepam 0.5 mg 03/11/25 14:05 Lorazepam 2 Mg/Ml Vial IV 03/16/25 14:04 Q2HR PRN CIWA SCORE 7-13 Lorazepam 1 mg 03/11/25 14:05 Lorazepam 2 Mg/Ml Vial IV 03/16/25 14:04 Q2HR PRN CIWA SCORE 14-19 Metoclopramide HCl 10 mg 03/13/25 07:59 Metoclopramide Inj 5 Mg/Ml Vial 2 Ml IVP 04/12/25 07:58 Q6HR PRN NAUSEA OR VOMITING Protocol Oxybutynin Chloride 5 mg 03/13/25 09:00 03/15/25 08:50 Oxybutynin Chlor 5 Mg Tablet PO 04/12/25 08:59 5 mg BID RAMAN Administration Pantoprazole Sodium 40 mg 03/12/25 09:00 03/15/25 08:50 Pantoprazole Inj 40 Mg Vial IVP 04/11/25 08:59 40 mg QDAY RAMAN Administration Risperidone 2 mg 03/13/25 09:00 03/15/25 08:50 Risperidone 1 Mg Tablet PO 04/12/25 08:59 2 mg BID RAMAN Administration Sennosides 1 tab 03/13/25 19:38 Senna Tablet PO 04/12/25 19:37 QDAY PRN CONSTIPATION Protocol Sertraline HCl 100 mg 03/13/25 21:00 03/14/25 20:16 Sertraline Hcl 25 Mg Tablet PO 04/12/25 20:59 100 mg HS RAMAN Administration Tramadol HCl 100 mg 03/13/25 17:11 03/13/25 17:23 Tramadol Hcl 50 Mg Tablet PO 03/18/25 17:10 100 mg Q6HR PRN Administration PAIN SCALE 4-10(Mod-Sev Plan Mr Hernández is a 64-year-old male active smoker with past medical history of hypertension, hyperlipidemia, bipolar disorder, paranoid schizophrenia, polysubstance use, presented to the ED due to back pain. Patient was admitted for small bowel obstruction. Abdominal distention - improving High-grade mechanical bowel obstruction - resolved Patient with abdominal distention Patient has no history of abdominal surgeries Last bowel movement on 03/09/2025. Patient is passing flatus Patient had BM after lactulose, NGT dcd CTA abdomen pelvis negative 03/13 : improvement of abdominal pain and distention, since multiple BMs over the last 12 hours after laxatives given by GenSurg ? Carb consistnet low ? General Surgery following, appreciate input ? PRN Reglan q6H for nausea ? Pantoprazole 40mg qD ? Contine IV Zosyn 3.375 q8H (03/11 - ). Will transition to PO tomorrow in preparation for DC. - GI consulted, appreciate recs. Pending final recommendations re: colonoscopy to r/o colon CA - Follow up CEA levels Lactic acidosis-resolved Bibasilar Pneumonia CXR : questionable bibasilar PNA some subjective fevers, Leukocytosis resolved - MRSA negative - Blood cultures negative - On IV Zosyn Urinary retention 2/ TERRAZAS Hyponatremia- resolved states hard to urinate with some blood likely in the setting of beer potomania - richards catheter in place - Urine culture show contamination, largely negative. Polysubstance use Alcohol use disorder Methamphetamine use Active smoker Drinks 12 packs of beer per day, last drink saturday03/06/2025 Smokes a pack a day Patient uses methamphetamine, last use was on Saturday ? CIWA protocol ? Nicotine patch Primary Hypertension BP trending 140-170/ 90-110s - Resumed home Lisinopril 20mg qD - Added amlodipine 5mg HS for optimization Hx of bipolar Hx of schizophrenia - Resumed home Risperidone 2mg BID - Resumed home Sertraline at reduced dose of 100mg HS. Takes 200mg at home. Health Maintenance: Disposition: MedSurg, anticipate discharge in am. Fluids: none Feeding: carbconsistent Thrombo prophylaxis: Lovenox Gastric Ulcer prophylaxis: Pantoprazole CODE STATUS: Full code Case discussed with my senior Dr. Rehman and my attending Dr. Christina Sanchez MD PGY-1 LPatient examined and case discussed with the team including attending physician. Note reviewed, I agree with the care plan as documented. Please refer to the note above for further details. - Rodriguez Rehman MD, PGY 2 Disclaimer: The document may contain phonetic/typographic errors due to voice recognition software. These errors are purely due to imperfections in the software program and should not be misconstrued in any way to compromise the substance of the patient's medical care during this visit. L
--- NOTE | 2025-03-15 13:40 | PC.PT ---
PT eval only. Patient is safe to ambulate to the bathroom with no DME or staff assist. Patient will need 1 staff assist for ambulating in the halls for safety over longer distances. RN made aware.
--- NOTE | 2025-03-15 15:39 | PC.SS ---
rounding note: Patient to d/c home tomorrow. PT recommended a quad cane. SS will provide at bedside.
[2025-03-15] MEDS: ACETAMINOPHEN 500 MG TABLET 1000 MG PO (19:09)
--- NOTE | 2025-03-15 19:12 | PC.NURSE ---
Pt medicated with tylenol for abd pain as requested.
[2025-03-15] MEDS: amLODIPine BESYLATE 5 MG TABLET PO (21:15)
[2025-03-15] MEDS: SERTRALINE HCL 25 MG TABLET 100 MG PO (21:18)
[2025-03-16] VITALS (9 sets, daily range): BP systolic 113–150; BP diastolic 65–80; PULSE 75–85; RESP 18–24; TEMP 36.2–36.3; O2SAT 92–97
[2025-03-16] MEDS: traMADol HCL 50 MG TABLET 100 MG PO ×2 (00:18→15:43)
[2025-03-16] MEDS: PIPER/TAZO 3.375 GM PREMIX 3.375 GM/50 ML BAG IV ×2 (05:30→13:30)
[2025-03-16 05:46] LABS: Basophils % (Auto) 0 % (0-2.5); Eosinophils # (Auto) 0.1 Thou/mm3 (0.0-0.5); Eosinophils % (Auto) 1 % (0-10); Hematocrit 36.4 % (41.0-53.0); Hemoglobin 12.5 g/dL (13.5-16.0); Immature Granulocytes % (Auto) 3 % (0-0); Lymphocytes % (Auto) 10 % (10-50); Mean Corpuscular HGB Conc 34.3 g/dl (31.0-37.0); Mean Corpuscular Hemoglobin 31.5 pg (25.0-35.0); Mean Corpuscular Volume 92 fL (80-100); Monocytes % (Auto) 9 % (0-12); Neutrophils # (Auto) 8.3 Thou/mm3 (1.8-7.7); Neutrophils % (Auto) 77 % (37-80); Nucleated Red Blood Cell % 0 /100 WBC (0); Platelet Count 187 Thou/mm3 (140-440); Red Blood Count 3.97 Miln/mm3 (4.50-5.90); White Blood Count 10.8 Thou/mm3 (3.8-10.6)
[2025-03-16 06:17] LABS: Osmolality, Urine* 374 mOsm/kg (50-1200)
[2025-03-16 06:34] LABS: Alanine Aminotransferase < 7 U/L (10-49); Albumin, Serum 2.6 gm/dL (3.4-4.8); Alkaline Phosphatase 56 U/L (46-116); Anion Gap 4 (7-16); Aspartate Amino Transferase 21 U/L (0-34); BUN/Creatinine Ratio 18 Ratio (12-20); Bilirubin,Total 0.8 mg/dL (0.3-1.2); Blood Urea Nitrogen 9 mg/dL (9-23); Calcium 7.6 mg/dL (8.3-10.6); Calcium (Corrected) 8.7 mg/dL (8.5-10.1); Carbon Dioxide 32.9 mMol/L (20.0-31.0); Chloride 101 mMol/L (98-107); Creatinine (Component) 0.5 mg/dL (0.6-1.3); Estimated Creatinine Clearance 179.3 mL/min (>60); Globulin 2.6 gm/dL (2.3-3.5); Glucose 99 mg/dL (74-106); Magnesium 1.9 mg/dL (1.6-2.6); Osmolality,Calculated 274 (275-295); Phosphorous 2.8 mg/dL (2.4-5.1); Potassium 3.5 mMol/L (3.4-5.1); Sodium 138 mMol/L (136-145); Total Protein 5.2 gm/dL (5.7-8.2); eGFR > 60 See Note
[2025-03-16] MEDS: ENOXAPARIN SOD INJ 40 MG/0.4 ML SYRINGE SC (08:27)
[2025-03-16] MEDS: PANTOPRAZOLE INJ 40 MG VIAL IVP (08:27)
[2025-03-16] MEDS: OXYBUTYNIN CHLOR 5 MG TABLET PO (08:28)
[2025-03-16] MEDS: risperiDONE 1 MG TABLET 2 MG PO (08:28)
[2025-03-16] MEDS: Lisinopril 20 MG TABLET PO (08:28)
--- NOTE | 2025-03-16 09:48 | ESDS_ITS ---
<Statement entered by Rodriguez Rehman MD - 03/16/25 16:15> Patient was examined with the team including attending physician. Note reviewed, I agree with the discharge plan as documented. - Rodriguez Rehman MD PGY2 Disclaimer: The document may contain phonetic/typographic errors due to voice recognition software. These errors are purely due to imperfections in the software program and should not be misconstrued in any way to compromise the substance of the patient's medical care during this visit. Planned Discharge Date 03/16/25 DS: Providers Provider Date of admission: 03/11/25 13:13 Primary care physician: Richard Sanchez MD Admitting Provider: Terrie Al DO Attending Provider on Admission: eJromy Vasquez MD Consults: 03/11/25 13:33 Consult to General Surgery Stat Comment: Consulting Provider: Aubree Agrawal 03/12/25 00:08 [facility] Referral - Knowledge Deficit Routine Comment: Positive screening for knowledge deficit needs. 03/12/25 15:04 Consult to Gastroenterology Routine Comment: SBO r/o cancer Consulting Provider: Radha Zambrano 03/14/25 06:50 Referral Physical Therapy Routine Comment: Physician Instructions: Attending Provider on DC: Jeromy Vasquez MD Discharging Provider: Ricki Sanchez MD Anticipated date of discharge: 03/16/25 DS: Diagnosis Problem List Completed Was Problem List Reviewed/Reconciled?: Yes Hospital Course Hospital Course Hospital course: 64-year-old male active smoker with past medical history of hypertension, hyperlipidemia, bipolar disorder, paranoid schizophrenia, polysubstance abuse who presented to the ED due to lower back pain patient was admitted for small bowel obstruction. During hospital stay patient was managed with NG tube for decompression of the stomach. General surgery was consulted and gave recommendations. Patient had Gastrografin study which resolved bowel obstruction. At the time of discharge patient is recommended to follow-up with refrigeration mechanic helper to have colonoscopy as colonic mass is a possible cause of mechanical bowel obstruction. Patient was also treated with IV antibiotics. At this time patient is medically stable for discharge.Follow up with primary care physician within 1 week of discharge. Follow up with [facility] [employer] [facility] Operator for outpatient colonoscopy, during hospitalization tumor markers were ordered and found to be negative. Due to presentation with obstruction with no obvious risk factors patient will benefit from colonoscopy to rule out colon cancer. Should any symptoms recur or worsen patient is instructed to return to the ED. Problem list: #Abdominal distention-resolved #High-grade mechanical bowel obstruction-resolved #Lactic acidosis-resolved #polysubstance use #Alcohol use disorder #Methamphetamine use #Active smoker #Primary hypertension #History of bipolar disorder #History of schizophrenia Case discussed with my senior Dr. Rehman and my attending Dr. Christina Sanchez MD PGY-1 Status at Discharge Functional status at discharge: independent ambulation Overall status at discharge: patient is back to baseline Time Spent with Patient Time attestation: Total time spent providing and/or coordinating discharge services: Time spent: Greater than 30 minutes Exam Vital Signs Temp Pulse Resp BP Pulse Ox O2 Del Method O2 Flow Rate 97.1 F 79 20 113/70 92 L Nasal Cannula 2 03/16/25 08:00 03/16/25 08:28 03/16/25 08:00 03/16/25 08:28 03/16/25 08:00 03/16/25 08:00 03/16/25 08:00 Narrative Exam Physical Exam GENERAL: NAD, AAOx3 HEENT: Moist mucosa. Eyes open, symmetrical, & clear CARDIO: Heart RRR, no obvious murmurs PULM: No noted coughing/dyspnea CTA B/L, no R/W/R GI: Abdomen soft, distended-improved, no pain on palpation. BS+ SKIN/MSK/EXT: No wounds/rashes/edema/amputations, no pain on palpation. Pedal pulses present B/L NEURO: AAOx3, no focal neuro deficits, able to move all 4 extremities Discharge Plan Plan Patient Disposition: Home w/HOME HEALTH Care Plan Goals: Follow up with primary care physician within 1 week of discharge. Follow up with [facility] [employer] for outpatient colonoscopy, during hospitalization tumor markers were ordered and found to be negative. Due to presentation with obstruction with no obvious risk factors patient will benefit from colonoscopy to rule out colon cancer. You have been prescribed amlodipine 5mg qday for high blood pressure. Should any symptoms recur or worsen patient is instructed to return to the ED. Prescriptions/Referrals Prescriptions/Med Rec: New amlodipine 5 mg tablet 5 mg PO QDAY Qty: 30 0RF Continued pantoprazole 40 mg tablet,delayed release (DR/EC) 40 mg PO QDAY Qty: 30 0RF acetaminophen 500 mg capsule 1,000 mg PO Q4H PRN (Reason: pain) Qty: 30 0RF lisinopril 20 mg Tablet 20 mg PO QDAY pantoprazole [Protonix] 40 mg tablet,delayed release (DR/EC) 40 mg PO QDAY Qty: 14 0RF divalproex 500 mg tablet extended release 24 hr 500 mg PO QDAY Patient Comments: take 1 tablet by mouth once daily aspirin 81 mg tablet,chewable 1 tab PO QDAY Patient Comments: chew and swallow 1 tablet by mouth once daily sertraline 100 mg tablet 100 mg PO Q24H Patient Comments: take 1 tablet by mouth once daily oxybutynin chloride 5 mg tablet 5 mg PO BID Patient Comments: take 1 tablet by mouth twice a day risperidone 2 mg tablet 2 mg PO BID Patient Comments: take 1 tablet by mouth twice a day Referrals: Richard Sanchez MD [Primary Care Provider] - Patient/Caregiver Discharge Instructions Education Materials: Understanding Oxygen Therapy, Using Oxygen Safely, Shortness of Breath Maximizing ..., Traveling with Oxygen, Using an Oxygen Tank at Home, Warning Signs of a Heart Attack Print Language: Pashto Stand Alone Forms: [facility] Award Info., Patient Portal Info Letter Discharge Order Discharge Orders: Discharge (Routine); Ordered 03/16/25 Ordered By: Ricki Sanchez Quality Discharge Quality Measures VTE prophylaxis
--- NOTE | 2025-03-16 10:52 | PC.NURSE ---
Pt aware of discharge order per pt will be picked up this afternoon by family member after 4pm.
--- NOTE | 2025-03-16 10:54 | PC.NURSE ---
Pt sating 85% o2 on RA at rest. Pt sating 92% o2 at 2L at rest. No ambulation attempted on RA due to low sats. Pt sating 91% on 2LNC on ambulation.
--- NOTE | 2025-03-16 11:10 | PC.CC ---
Addendum entered by Leidy Zapata RN 03/16/25 12:48: [facility] booked, SOC 03/17. Original Note: HH refferal sent to [facility], no preferences noted in chart. Waiting for response.
--- NOTE | 2025-03-16 11:34 | PC.SS ---
OXYGEN Pt is discharged in a chronic stable state and has been treated optimally and has other respiratory needs. Oxygen has been ordered due to low saturations and SOB.
--- NOTE | 2025-03-16 17:03 | ESPR_ITS ---
Documentation for date of: 03/16/25 Subjective Subjective Interval history: Patient evaluated passing flatus and having bowel movements Exam Vital Signs Temp Pulse Resp BP Pulse Ox O2 Del Method O2 Flow Rate 97.3 F 75 18 131/80 H 93 L Room Air 2 03/16/25 16:00 03/16/25 16:00 03/16/25 16:00 03/16/25 16:00 03/16/25 16:00 03/16/25 16:00 03/16/25 12:00 Objective Labs 03/16/25 05:27 03/16/25 05:27 Labs: Laboratory Results - last 24 hr 03/11/25 03/16/25 08:00 05:27 WBC 10.8 H RBC 3.97 L Hgb 12.5 L Hct 36.4 L MCV 92 MCH 31.5 MCHC 34.3 RDW Std Deviation 48.0 H Plt Count 187 Neut % (Auto) 77 Lymph % (Auto) 10 [place] % (Auto) 9 Eos % (Auto) 1 Baso % (Auto) 0 Neut # (Auto) 8.3 H Lymph # (Auto) 1.0 [place] # (Auto) 1.0 H Eos # (Auto) 0.1 Baso # (Auto) 0.0 Immature Gran # (Auto) 0.30 H Absolute Nucleated RBC 0.00 Immature Gran % 3 H Nucleated RBC % 0 Sodium 138 Potassium 3.5 D Chloride 101 Carbon Dioxide 32.9 H Anion Gap 4 L BUN 9 Creatinine 0.5 L Estim Creat Clear Calc 179.3 eGFR > 60 BUN/Creatinine Ratio 18 Glucose 99 Calculated Osmolality 274 L Calcium 7.6 L Corrected Calcium 8.7 Phosphorus 2.8 Magnesium 1.9 Total Bilirubin 0.8 AST 21 ALT < 7 L Alkaline Phosphatase 56 Total Protein 5.2 L Albumin 2.6 L Globulin 2.6 Albumin/Globulin Ratio 1.0 L Urine Osmolality 374 Impressions Impression: Small bowel obstruction resolved Continue current management Assessment & Plan A&P Narrative # Small bowel obstruction resolving with the current small bowel follow-through showing contrast in the right colon Suggestions Keep the patient n.p.o. till he has a bowel movement and no more nausea vomiting Then advance to clear liquid diet # Cirrhosis liver with mild ascites secondary to chronic consumption of alcohol Advised complete abstinence from alcohol Should have upper endoscopy for possible prophylactic medication of the esophageal varices which can be done as an outpatient Other medical problems include Chronic drug abuse with toxicology positive for methamphetamine Hypertension Hyperlipidemia Schizophrenia Thank you very much for the opportunity to participate in care of this patient Time Spent With Patient Time: Total time spent is greater than 50% in coordination of care (as documented) at patient's floor/unit and/or counseling patient:
== END 2025-03-16 17:40 | disposition home health service (06) | DRG 388 ==
LOC: SERX 10:22 → SERHOLD 13:45 → S3NX 19:27
PROVIDERS: Student in an Organized Health Care Education/Training Program; Admitting Provider Internal Medicine; Emergency Provider Emergency Medicine; PCP Family Medicine; Visit Provider Internal Medicine
DX: K56.609 Unspecified intestinal obstruction, unspecified as to partial versus complete obstruction (principal); J18.9 Pneumonia, unspecified organism; F20.0 Paranoid schizophrenia; E87.20 Acidosis, unspecified; E87.1 Hypo-osmolality and hyponatremia; D68.9 Coagulation defect, unspecified; R18.8 Other ascites; M54.9 Dorsalgia, unspecified; I11.9 Hypertensive heart disease without heart failure; K74.60 Unspecified cirrhosis of liver; R33.8 Other retention of urine; F17.210 Nicotine dependence, cigarettes, uncomplicated; N32.0 Bladder-neck obstruction; E78.5 Hyperlipidemia, unspecified; F31.9 Bipolar disorder, unspecified; F10.10 Alcohol abuse, uncomplicated; F15.90 Other stimulant use, unspecified, uncomplicated
CPT/HCPCS: 36415; 71045; 74018; 74174; 74177; 74250; 76705; 80053; 80307; 80320; 81001; 82140; 82378; 82436; 82570; 83605; 83690; 83735; 83880; 83935; 84100; 84133; 84145; 84295; 84300; 84484; 85025; 85610; 85730; 87040; 87081; 87086; 87811; 93005; 93225; 94640; 94664; 94667; 96365; 96366; 96367; 96375; 96376; 97162; 99285; A4649; A9270; J0456; J0696; J1650; J2270; J2405; J2470; J2543; J3475; J3490; J7030; J7050; J7120; J7999; Q9963; Q9967; G0480

== ENCOUNTER 2025-08-07 15:58 | Inpatient (IN) | payer MEDICARE, MEDICAID, SELFPAY ==
[2025-08-07] VITALS (10 sets, daily range): BP systolic 153–187; BP diastolic 88–108; PULSE 63–84; RESP 18–20; TEMP 36.4–36.8; O2SAT 93–99; BMI 27.3; BMI 26.2
--- NOTE | 2025-08-07 16:22 | XR_ITS ---
Examination: CT abdomen with intravenous contrast CT pelvis with intravenous contrast 2-D coronal reconstructions 2-D sagittal reconstructions Date and time of exam: August 07, 2025, 1751 hours, comparison March 12, 2025 INDICATIONS: Diagnosis cirrhosis, left lower abdomen pain left flank pain beginning 2 weeks ago. CTDI: vol (mGy) 10.1 DLP: (mGycm) 581 Technique: Multiple axial sections of the abdomen and pelvis have been obtained. 64 slice high-resolution scanner used. 3 mm axial sections have been obtained, post intravenous injection 60 cc [id number] 2-D sagittal, coronal reconstructions obtained. Low dose protocols were performed. One or more of the following dose reduction techniques were used; automated exposure control, adjustment of the mA and/or KV according to patient size, use of iterative reconstruction technique. Findings: Mild atelectasis in the lower lung zones Mild to moderate enlargement cardiac contour Cirrhosis, liver irregular in contour, no focal liver lesions No gallstones Mild splenomegaly Portosystemic collateral vessels medial to the spleen No pancreatic mass Normal adrenal glands No renal or ureteral calculi, no hydronephrosis No bowel obstruction The appendix is fluid-filled, small appendicolith and thickened, small [id number] axial image 99, measuring 11 mm No diverticulitis Urinary bladder intact Mild prostatomegaly Advanced degenerative disc disease L4-L5, L5-S1 IMPRESSION: Cirrhosis Mild splenomegaly. Portal hypertension No renal or ureteral calculi The appendix is thickened up to 11 mm, fluid-filled with small appendicoliths and is suspicious for mild periappendiceal inflammatory change, the appearance should be clinically correlated for early appendicitis
--- NOTE | 2025-08-07 16:22 | PD.EDABDPN ---
ED Abdominal Pain RME/HPI General Chief Complaint: Abdominal Pain Stated complaint: ABDOMINAL PAIN Time seen by provider: 08/07/25 16:09 Arrival date/time: 08/07/25 15:58 Limitations: no limitations RME / HPI RME / HPI narrative: This patient is a 65year-old male with past medical history of hypertension, hyperlipidemia, GI bleed, schizophrenia, anxiety. Reports more than 1 week of aching to left lower quadrant. States does not feel like his history of kidney stones feels different. Worst pain began yesterday and that is what caused him to come. Having some nausea and chills. Related Data Home Medications ?Medication ?Instructions ?Recorded ?Confirmed lisinopril 20 mg tablet 20 mg PO QDAY 05/27/19 03/11/25 aspirin 81 mg chewable tablet 1 tab PO QDAY 03/11/25 03/11/25 divalproex 500 mg tablet,extended 500 mg PO QDAY 03/11/25 03/11/25 release 24 hr oxybutynin chloride 5 mg tablet 5 mg PO BID 03/11/25 03/11/25 risperidone 2 mg tablet 2 mg PO BID 03/11/25 03/11/25 sertraline 100 mg tablet 100 mg PO Q24H 03/11/25 03/11/25 Previous Rx's ?Medication ?Instructions ?Recorded pantoprazole 40 mg tablet,delayed 40 mg PO QDAY #30 tabs 01/31/19 release acetaminophen 500 mg capsule 1,000 mg (2 x 500 mg) PO Q4H PRN 02/16/20 pain #30 caps pantoprazole 40 mg tablet,delayed 40 mg PO QDAY #14 tabs 02/21/20 release (Protonix) amlodipine 5 mg tablet 5 mg PO QDAY #30 tabs 03/16/25 Allergies Allergy/AdvReac Type Severity Reaction Status Date / Time codeine Allergy Unknown Verified 08/07/25 16:12 ibuprofen AdvReac Intermediate DUE TO HX Verified 08/07/25 16:12 OF ULCERS Penicillins AdvReac Intermediate MAKES Verified 08/07/25 16:12 INFECTIONS WORSE Review of Systems Review of Systems Systems Reviewed: All systems reviewed, normal except as documented Constitutional Constitutional: Denies fever(s) Gastrointestinal Gastrointestinal: Reports as per HPI ED Exam General Limitations: Present no limitations General appearance: Present alert and in no apparent distress Head Head exam: Present atraumatic Eye Eye exam: Present normal appearance, PERRL and EOMI ENT ENT exam: Present normal exam, normal oropharynx and mucous membranes moist Neck Neck exam: Present normal inspection, full ROM and trachea midline Chest Chest inspection: Present normal inspection and symmetric chest wall rise Respiratory Respiratory exam: Present normal lung sounds bilaterally Cardiovascular Cardiovascular exam: Present regular rate, normal rhythm and normal heart sounds Abdominal Exam Abdominal exam: Present soft, tenderness (+ rovsing, LLQ pain ) and normal bowel sounds Extremities Exam Extremities exam: Present normal inspection and full ROM Back Exam Back exam: Present normal inspection and full ROM Psychiatric Psychiatric exam: Present normal affect and normal mood Skin Skin exam: Present warm, dry, intact and normal color Course Quality Measures none Orders Category Date Time Status CT Screening NOW Care 08/07/25 16:23 Active Insert IV NOW Care 08/07/25 16:[address] abdomen pelvis w con Stat Exams 08/07/25 16:22 Completed CBC Stat Lab 08/07/25 16:30 Completed CMP [Comprehensive Metabolic Panel] Stat Lab 08/07/25 16:30 Completed Drug Screen,Urine Stat Lab 08/07/25 16:38 Completed Lactic Acid [Lactate (Lactic Acid)] Stat Lab 08/07/25 16:30 Completed Lipase Stat Lab 08/07/25 16:30 Completed PT [Prothrombin Time with INR] Stat Lab 08/07/25 16:30 Completed Type and Screen Stat Lab 08/07/25 16:30 Completed UA [Urinalysis] Stat Lab 08/07/25 16:38 Completed VBG [Venous Blood Gas] Stat Lab 08/07/25 16:30 Completed HYDROcodone*/APAP 5/325 [[place] 5/325] Med 08/07/25 16:22 Discontinued 1 tab PO X1 ONE Morphine* Inj Med 08/07/25 19:05 Discontinued 4 mg IVP X1 ONE cefTRIAXone/D5w 1gm IV premix [Rocephin/D5w 1gm IV Med 08/07/25 19:47 Active premix] 1 gm in 50 ml IV X1 metroNIDAZOLE/NS 500 MG IVPB [Flagyl 500 mg IV] Med 08/07/25 19:47 Pending 500 mg in 100 ml IV Q6HR metroNIDAZOLE/NS 500 MG IVPB [Flagyl 500 mg IV] Med 08/07/25 20:00 Active 500 mg in 100 ml IV X1 Vital Signs Vital signs: Vital Signs Temperature 98.2 F 08/07/25 16:03 Pulse Rate 72 08/07/25 16:03 Respiratory Rate 18 08/07/25 16:03 Blood Pressure 177/108 H 08/07/25 16:03 Pulse Oximetry (%) 98 08/07/25 16:03 Oxygen Delivery Method Room Air 08/07/25 16:03 Abdominal Pain MDM Patient data External records reviewed:: [facility] previous records Clinical information provided by:: patient Social determinants that could affect healthcare access:: mental health Patient has the following chronic illnesses:: Schizophrenia hypertension and multiple other chronic diseases How is presenting disease/condition affected by chronic disease/condition?: uneffected by Evaluation data The following diagnostics were reviewed and interpreted by me:: lab results and radiology exam(s) Lab and/or radiology exams considered but not ordered:: All imaging considered was ordered Interpretation Summary: CBC showed CMP showed hyponatremia and hyperkalemia UA normal CT showed appendicitis Medications / Prescriptions Medications or Prescriptions considered but not ordered:: Zosyn was considered however given amoxicillin allergy unable to prescribe Medication administrations:: Medication Administration History Ceftriaxone Sodium/Dextrose (Rocephin/D5w 1gm Iv Premix) 1 gm in 50 mls @ 100 mls/hr IV X1 ONE Stop: 08/07/25 20:16 Metronidazole (Flagyl 500 Mg Iv) 500 mg in 100 mls @ 200 mls/hr IV Q6HR RAMAN Stop: 08/14/25 19:46 Metronidazole (Flagyl 500 Mg Iv) 500 mg in 100 mls @ 200 mls/hr IV X1 ONE Stop: 08/07/25 20:29 Discontinued Medications Hydrocodone Bitart/Acetaminophen (Hydrocodone/Apap 5/325 Tablet) 1 tab PO X1 ONE Stop: 08/07/25 16:23 Last Admin: 08/07/25 16:45 Dose: 1 tab Documented By: BD Morphine Sulfate (Morphine Sulf Inj 4 Mg/Ml Vial) 4 mg IVP X1 ONE Stop: 08/07/25 19:06 Last Admin: 08/07/25 19:13 Dose: 4 mg Documented By: AC See above Consultations Consultation(s) initiated? (list below): Yes Consultation #1 (Physician, Specialty, Details): Call out to surgeon Dr. Esteban, due to additional history requesting hospitalist to admit, due due to patient's penicillin allergy recommended Rocephin and Flagyl Time: 19:48 Consultation #2 (Physician, Specialty, Details): Case Presented to Dr. Al, will admit the patient Time: 19:51 Diagnosis Differential diagnosis abdominal pain: abdominal pain, acute appendicitis, calculus of kidney, constipation and diverticulitis Most likely diagnosis given after review of the tests above:: 1. appendicitis 2. hyperkalemia 3. hyponatremia 4. htn 5. schizophrenia 6. alcohol abuse in remission Admission Indicated Admission indicated?: indicated Admission Request Was there a request for admission?: Yes Admission Attestation Admission request attestation: Discussed case with [] from Hospitalist service regarding admission. Discussed patients ED course, exam findings, labs, and radiology results. The Hospitalist [agrees,declines] to accept the patient for admission. Disposition Plan Disposition Plan: Admit Discharge Plan Plan Patient Disposition: Admit Acute Care w/in Hospital Prescriptions/Referrals Prescriptions/Med Rec: No Action pantoprazole 40 mg tablet,delayed release (DR/EC) 40 mg PO QDAY Qty: 30 0RF acetaminophen 500 mg capsule 1,000 mg PO Q4H PRN (Reason: pain) Qty: 30 0RF lisinopril 20 mg Tablet 20 mg PO QDAY pantoprazole [Protonix] 40 mg tablet,delayed release (DR/EC) 40 mg PO QDAY Qty: 14 0RF divalproex 500 mg tablet extended release 24 hr 500 mg PO QDAY Patient Comments: take 1 tablet by mouth once daily aspirin 81 mg tablet,chewable 1 tab PO QDAY Patient Comments: chew and swallow 1 tablet by mouth once daily sertraline 100 mg tablet 100 mg PO Q24H Patient Comments: take 1 tablet by mouth once daily oxybutynin chloride 5 mg tablet 5 mg PO BID Patient Comments: take 1 tablet by mouth twice a day risperidone 2 mg tablet 2 mg PO BID Patient Comments: take 1 tablet by mouth twice a day amlodipine 5 mg tablet 5 mg PO QDAY Qty: 30 0RF Referrals: Katherin Sanchez [Primary Care Provider] - In 1 week Problem List Clinical Impression: Acute appendicitis, Acute hyponatremia, Acute hyperkalemia, Schizophrenia, HTN (hypertension), Alcohol abuse Patient/Caregiver Discharge Instructions Print Language: [place] Stand Alone Forms: Opal Award Info., Patient Portal Info Letter PA/PERINATAL TECHNICIAN Supervising Physician PA/PERINATAL TECHNICIAN Supervising Physician: Dr. Lui
[2025-08-07] MEDS: HYDROcodone/APAP 5/325 TABLET 1 TAB PO (16:45)
[2025-08-07 16:51] LABS: Base Excess, Venous 3 (-3-3); O2 Saturation, Venous 64 % (96-97); PCO2, Venous 41 mmHg (36-56); PO2, Venous 31 mmHg (15-58); pH, Venous 7.43 (7.33-7.66)
[2025-08-07 16:53] LABS: Collection Type, Urine Clean Catch; Squamous Epithelial Cell,Urine 0 /hpf (0-5)
[2025-08-07 16:54] LABS: Lactate (Lactic Acid) 1.6 mMol/L (0.4-2.0)
[2025-08-07 17:01] LABS: Basophils # (Auto) 0.0 Thou/mm3 (0.0-0.2); Basophils % (Auto) 0 % (0-2.5); Eosinophils # (Auto) 0.1 Thou/mm3 (0.0-0.5); Eosinophils % (Auto) 1 % (0-10); Hematocrit 39.4 % (41.0-53.0); Hemoglobin 13.8 g/dL (13.5-16.0); Immature Granulocytes Auto 0.01 Thou/mm3 (0.00-0.00); Lymphocytes # (Auto) 1.8 Thou/mm3 (1.0-4.8); Lymphocytes % (Auto) 25 % (10-50); Mean Corpuscular HGB Conc 35.0 g/dl (31.0-37.0); Mean Corpuscular Hemoglobin 31.6 pg (25.0-35.0); Mean Corpuscular Volume 90 fL (80-100); Monocytes # (Auto) 0.6 Thou/mm3 (0.0-0.8); Monocytes % (Auto) 8 % (0-12); Neutrophils # (Auto) 4.7 Thou/mm3 (1.8-7.7); Neutrophils % (Auto) 65 % (37-80); Nucleated Red Blood Cell # 0.00 Thou/mm3 (0.00-0.00); Nucleated Red Blood Cell % 0 /100 WBC (0); RDW Standard Deviation 43.7 fL (35.1-43.9); Red Blood Count 4.37 Miln/mm3 (4.50-5.90); White Blood Count 7.2 Thou/mm3 (3.8-10.6)
[2025-08-07 17:13] LABS: INR 1.2 (0.9-1.3); Prothrombin Time 12.8 Seconds (9.0-12.2)
[2025-08-07 17:17] LABS: Amphetamine/Methamp Scrn,U Negative (Negative); Barbiturate Screen,Urine Negative (Negative); Benzodiazepines Screen,Urine Negative (Negative); Benzoylecgonine Screen, Ur Negative (Negative); Fentanyl Screen,Urine Negative (Negative); Opiate Screen,Urine Negative (Negative); THC Screen,Urine Negative (Negative)
[2025-08-07 17:20] LABS: Alanine Aminotransferase 18 U/L (10-49); Albumin, Serum 4.2 gm/dL (3.4-4.8); Albumin/Globulin Ratio 1.5 (1.2-2.2); Alkaline Phosphatase 67 U/L (46-116); Anion Gap 8 (7-16); Aspartate Amino Transferase 37 U/L (0-34); BUN/Creatinine Ratio 13 Ratio (12-20); Bilirubin,Total 0.7 mg/dL (0.3-1.2); Blood Urea Nitrogen 12 mg/dL (9-23); Calcium 9.4 mg/dL (8.3-10.6); Calcium (Corrected) 9.4 mg/dL (8.5-10.1); Carbon Dioxide 28.2 mMol/L (20.0-31.0); Chloride 95 mMol/L (98-107); Creatinine (Component) 0.9 mg/dL (0.6-1.3); Estimated Creatinine Clearance 93.7 mL/min (>60); Globulin 2.8 gm/dL (2.3-3.5); Glucose 95 mg/dL (74-106); Lipase 25 U/L (12-53); Osmolality,Calculated 262 (275-295); Potassium 5.3 mMol/L (3.4-5.1); Sodium 131 mMol/L (136-145); Total Protein 7.0 gm/dL (5.7-8.2); eGFR > 60 See Note
[2025-08-07 17:25] LABS: Bacteria,Urine Rare; Bilirubin,Urine Negative (Negative); Blood,Urine Negative (Negative); Clarity,Urine Clear (Clear/Hazy); Color,Urine Lt-Yellow (Lt Yel-Yel); Glucose, Urine Negative (Negative); Ketones,Urine Negative (Negative); Leukocyte Esterase,Urine Negative (Negative); Nitrite,Urine Negative (Negative); PH,Urine 7.0 (5.0-7.0); Protein,Urine Negative (Neg - Trace); RBC,Urine 1 /hpf (0-3); Specific Gravity,Urine 1.009 (1.001-1.035); Urobilinogen,Urine Negative mg/dL (0.0-1.0); WBC,Urine < 1 /hpf (0-5)
[2025-08-07] MEDS: MORPHINE SULF INJ 4 MG/ML VIAL IVP (19:13)
[2025-08-07 19:32] LABS: Platelet Count 129 Thou/mm3 (140-440)
[2025-08-07] MEDS: cefTRIAXone/D5w 1gm IV premix 1 GM/50 ML BAG IV (20:15)
[2025-08-07] MEDS: hydrALAZINE INJ 20 MG/ML VIAL 10 MG IVP (20:40)
[2025-08-07] MEDS: metroNIDAZOLE/NS 500 MG IVPB 500 MG/100 ML BAG 200 MG IV (20:40)
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
[2025-08-07] MEDS: CIPROFLOXACIN/D5w 400 MG IVPB 400 MG/200 ML BAG 200 MG IV (22:14)
[2025-08-07] MEDS: HEPARIN SOD INJ 5000 UNIT/ML VIAL SC (22:14)
[2025-08-07] MEDS: RINGERS LACTATED 1000 ML 1,000 ML 75 ML IV (22:15)
--- NOTE | 2025-08-07 22:26 | PC.NURSE ---
REPORT GIVEN TO JOSE
[2025-08-07] MEDS: ALBUTEROL RT 2.5 MG/0.5 ML NEBU INH (22:57)
[2025-08-07] MEDS: SOD POLYSTYRENE SULFON SUSP 15 GM/60 ML BTL 30 GM PO (23:56)
[2025-08-07] MEDS: SERTRALINE HCL 25 MG TABLET 100 MG PO (23:56)
[2025-08-08] VITALS: BP 118/70; PULSE 79; RESP 18; TEMP 36.5; O2SAT 95
[2025-08-08 03:20] LABS: Basophils # (Auto) 0.0 Thou/mm3 (0.0-0.2); Basophils % (Auto) 0 % (0-2.5); Eosinophils # (Auto) 0.1 Thou/mm3 (0.0-0.5); Eosinophils % (Auto) 2 % (0-10); Hematocrit 40.7 % (41.0-53.0); Hemoglobin 14.7 g/dL (13.5-16.0); Immature Granulocytes Auto 0.01 Thou/mm3 (0.00-0.00); Lymphocytes # (Auto) 1.5 Thou/mm3 (1.0-4.8); Lymphocytes % (Auto) 22 % (10-50); Mean Corpuscular HGB Conc 36.1 g/dl (31.0-37.0); Mean Corpuscular Hemoglobin 32.5 pg (25.0-35.0); Mean Corpuscular Volume 90 fL (80-100); Monocytes # (Auto) 0.7 Thou/mm3 (0.0-0.8); Monocytes % (Auto) 9 % (0-12); Neutrophils # (Auto) 4.7 Thou/mm3 (1.8-7.7); Neutrophils % (Auto) 67 % (37-80); Nucleated Red Blood Cell # 0.00 Thou/mm3 (0.00-0.00); Nucleated Red Blood Cell % 0 /100 WBC (0); Platelet Count 146 Thou/mm3 (140-440); RDW Standard Deviation 43.9 fL (35.1-43.9); Red Blood Count 4.53 Miln/mm3 (4.50-5.90); White Blood Count 7.1 Thou/mm3 (3.8-10.6)
[2025-08-08 03:40] LABS: Potassium 4.2 mMol/L (3.4-5.1)
[2025-08-08 03:48] LABS: Alanine Aminotransferase 17 U/L (10-49); Albumin, Serum 4.2 gm/dL (3.4-4.8); Albumin/Globulin Ratio 1.5 (1.2-2.2); Alkaline Phosphatase 68 U/L (46-116); Anion Gap 11 (7-16); Aspartate Amino Transferase 38 U/L (0-34); BUN/Creatinine Ratio 14 Ratio (12-20); Bilirubin,Total 0.6 mg/dL (0.3-1.2); Blood Urea Nitrogen 11 mg/dL (9-23); Calcium 9.5 mg/dL (8.3-10.6); Calcium (Corrected) 9.5 mg/dL (8.5-10.1); Carbon Dioxide 25.3 mMol/L (20.0-31.0); Chloride 104 mMol/L (98-107); Creatinine (Component) 0.8 mg/dL (0.6-1.3); Estimated Creatinine Clearance 105.4 mL/min (>60); Globulin 2.8 gm/dL (2.3-3.5); Glucose 96 mg/dL (74-106); Magnesium 2.3 mg/dL (1.6-2.6); Osmolality,Calculated 278 (275-295); Phosphorous 4.5 mg/dL (2.4-5.1); Potassium 4.2 mMol/L (3.4-5.1); Sodium 140 mMol/L (136-145); Total Protein 7.0 gm/dL (5.7-8.2); eGFR > 60 See Note
[2025-08-08 04:00] VITALS: BP 119/84; PULSE 61; PULSE 68; RESP 18; TEMP 36.4; O2SAT 95
[2025-08-08] MEDS: metroNIDAZOLE/NS 500 MG IVPB 500 MG/100 ML BAG 200 MG IV (06:27)
[2025-08-08 08:00] VITALS: BP 120/77; PULSE 60; PULSE 61; RESP 19; TEMP 36.3; O2SAT 96
[2025-08-08] MEDS: ASPIRIN EC 81 MG TABEC PO (09:07)
[2025-08-08] MEDS: CIPROFLOXACIN/D5w 400 MG IVPB 400 MG/200 ML BAG 200 MG IV (09:07)
[2025-08-08 09:08] VITALS: BP 120/77; PULSE 61
[2025-08-08] MEDS: OXYBUTYNIN CHLOR 5 MG TABLET PO (09:08)
[2025-08-08] MEDS: PANTOPRAZOLE 40 MG TABLET PO (09:08)
[2025-08-08] MEDS: ACETAMINOPHEN 325 MG TABLET 650 MG PO (09:08)
--- NOTE | 2025-08-08 11:45 | PD.SURCONS ---
HPI Consult details History of present illness: 65M with HTN, HLD, cirrhosis, schizophrenia who presented to ER 08/07/25 with LLQ pain. Pt reports he had been having pain for the past week and it felt similar to a previous episode of constipation. He underwent CT AP which shows a fluid-filled and thickened appendix with mild periappendiceal inflammation. Today he reports feeling much better with no current pain, he had a bowel movement this morning and feels like that resolved his pain. He denies ever having any right lower quadrant pain and is feeling hungry PMH: HTN, HLD, cirrhosis, schizophrenia PSH: Jaw surgery, left lower extremity surgery Meds: Includes ASA 81 mg Allergies: Penicillin, ibuprofen, codeine Review of Systems Review of Systems ROS Unobtainable: All systems reviewed & no additional complaints except as documented Meds Home Medications and Allergies Home Medications ?Medication ?Instructions ?Recorded ?Confirmed ?Type lisinopril 20 mg tablet 20 mg PO QDAY 05/27/19 08/07/25 History aspirin 81 mg chewable tablet 1 tab PO QDAY 03/11/25 08/07/25 History divalproex 500 mg tablet,extended 500 mg PO QDAY 03/11/25 08/07/25 History release 24 hr Held on 08/07/25. Instructions: PER PATIENT oxybutynin chloride 5 mg tablet 5 mg PO BID 03/11/25 08/07/25 History sertraline 100 mg tablet 100 mg PO Q24H 03/11/25 08/07/25 History spironolactone 25 mg tablet 25 mg PO QDAY 08/07/25 08/07/25 History Allergies Allergy/AdvReac Type Severity Reaction Status Date / Time codeine Allergy Unknown Verified 08/07/25 16:12 ibuprofen AdvReac Intermediate DUE TO HX Verified 08/07/25 16:12 OF ULCERS Penicillins AdvReac Intermediate MAKES Verified 08/07/25 16:12 INFECTIONS WORSE Exam Vital Signs Temp Pulse Resp BP Pulse Ox O2 Del Method 97.3 F 61 19 120/77 96 Room Air 08/08/25 08:00 08/08/25 09:08 08/08/25 08:00 08/08/25 09:08 08/08/25 08:00 08/08/25 08:00 Constitutional Constitutional: no acute distress Routine Respiratory Exam Respiratory: Present no resp distress Routine Abdominal Exam Abdominal: Present soft; Absent tenderness or distended Results Results: Laboratory Laboratory results: results reviewed Results: Imaging CT scan - abdomen: report reviewed and image reviewed Assessment & Plan Plan 65M with HTN, HLD, cirrhosis, schizophrenia who presented to ER 08/07/25 with LLQ pain which has since resolved. The appendiceal finding on CT is likely incidental as patient has no symptoms consistent with appendicitis. Regular diet Okay to DC from my standpoint
[2025-08-08 12:00] VITALS: BP 113/63; PULSE 61; PULSE 62; RESP 18; TEMP 36.1; O2SAT 94
--- NOTE | 2025-08-08 12:03 | ESDS_ITS ---
<Statement entered by Gerard Fernández MD - 08/08/25 14:36> I have discussed and was present for the essential components of the history, physical examination, diagnosis, and treatment plan with the resident. I agree with the patient's care as documented by the resident and amended herein by me. Gerard Fernández MD FACP. Planned Discharge Date 08/08/25 DS: Providers Provider Date of admission: 08/07/25 20:46 Primary care physician: Katherin Sanchez Admitting Provider: Terrie Al DO Attending Provider on Admission: Terrie Al DO Consults: 08/07/25 22:35 Consult to General Surgery Stat Comment: Consulting Provider: Camille Esteban Attending Provider on DC: Olivia Hooper MD Discharging Provider: Olivia Hooper MD DS: Diagnosis Problem List Completed Was Problem List Reviewed/Reconciled?: Yes Hospital Course Hospital Course Hospital course: Mr. Hernández is a 65-year-old male with a history of hypertension, hyperlipidemia, cirrhosis, schizophrenia, bipolar disorder, prior GI bleed, and polysubstance use (including IV drug use) who presented with 1 week of progressive left lower quadrant (LLQ) abdominal pain, associated with nausea, chills, and decreased appetite. He denied chest pain, SOB, or urinary symptoms. On exam, he had LLQ tenderness and +Rovsing sign. Vitals in the ED showed elevated BP (177/108), which improved with treatment. Labs were notable for K 5.3, normal WBC, with a normal lactic acid, UA, and UDS. CT abdomen/pelvis revealed cirrhosis, mild splenomegaly, and portal hypertension, along with a mildly enlarged appendix (up to 11 mm) with small appendicolith and mild surrounding inflammation. General Surgery evaluated and determined that these appendiceal findings were likely incidental, as the patient's pain resolved and he had no signs consistent with appendicitis. In the ED, he received IV morphine, hydrocodone-acetaminophen, ceftriaxone, metronidazole, and IV hydralazine. His abdominal pain improved significantly without further intervention. The patient's symptoms resolved during his ED stay. He remained hemodynamically stable, tolerated a regular diet, ambulated independently, and had no further abdominal complaints. He was deemed stable for discharge with no need for inpatient intervention. Discharge Diagnoses: * Abdominal pain ? resolved(most likely due to constipation) started to have a BM at the hospital after which pain subsided * Incidental appendiceal thickening without clinical appendicitis * Cirrhosis with portal hypertension * Hypertension * Schizophrenia, bipolar disorder * History of GI bleed * Polysubstance use disorder (including IVDU) Discharge Plan & Follow-Up: * Resume home medications * Primary Care: Follow-up within 1?2 weeks for labs and chronic condition management * GI/Hepatology: Outpatient referral for cirrhosis and portal hypertension * Psychiatry: Continue outpatient mental health care * Substance Use Treatment: Referral recommended for addiction services and harm reduction * Return to ED for: * Recurrent or worsening abdominal pain * Fever, vomiting, or signs of infection Patient care was discussed with attending physician Dr. Pradeep Hooper MD PGY-3 I have carefully reviewed this document. Due to imperfections in the voice software, there could be grammatical errors including phonetic/typographic errors. This in no way compromises the medical care the patient is receiving Time Spent with Patient Time attestation: Total time spent providing and/or coordinating discharge services: Time spent: Greater than 30 minutes Exam Vital Signs Temp Pulse Resp BP Pulse Ox O2 Del Method 97.3 F 61 19 120/77 96 Room Air 08/08/25 08:00 08/08/25 09:08 08/08/25 08:00 08/08/25 09:08 08/08/25 08:00 08/08/25 08:00 Narrative Exam GENERAL: no acute distress, AAO x3, well nourished. HEENT: Head AT/ NC. Mucous membranes moist. PERRL. NECK: Supple, no lymphadenopathy, no carotid bruits. CARDIOVASCULAR: RRR. Normal S1/S2, No m/r/g. No pitting edema of bilateral LEs. RESPIRATORY: CTAB. No wheezing, rhonchi, crackles. GASTROINTESTINAL: Abdomen soft, non tender no palpable masses. Bowel sounds present in all 4 quadrants. MUSCULOSKELETAL:? No cyanosis or edema, no visible joint swelling. NEUROLOGICAL: CN II-XII grossly intact. No focal deficits. Sensation intact, symmetric. PSYCHIATRIC: Awake and alert, not agitated, normal mood and affect. INTEGUMENTARY: No obvious rashes, no jaundice, normal turgor. Discharge Plan Plan Patient Disposition: HOME (Self Care) Care Plan Goals: Home Care Instructions: * Rest: Take it easy for the next few days and avoid strenuous activity. * Diet: Eat a bland, low-fat diet (e.g., rice, toast, bananas, applesauce, plain chicken) until symptoms improve. Avoid greasy, spicy, or heavy meals. * Hydration: Drink plenty of fluids unless otherwise advised. * Pain Management: You may take acetaminophen (Tylenol) as needed for pain unless otherwise directed. Avoid NSAIDs (like ibuprofen) if you have any kidney or GI concerns unless cleared by your provider. continue taking all home medication as prescibed hold Spironolactone as your Potassium level is elevated, follow up with PCP , repeat CMP in 1 week befor restarting Follow-Up Care: * Primary Care Provider (PCP): Follow up within 1 week or sooner if symptoms persist or worsen. * Further Evaluation: If symptoms continue, further imaging (like ultrasound or CT scan) or specialist referral may be needed to evaluate gallbladder, liver, or other GI causes. Return to the Emergency Department if You Develop: * Worsening or severe abdominal pain * Fever or chills * Nausea or vomiting that prevents you from keeping fluids down * Yellowing of the skin or eyes (jaundice) * New or worsening symptoms Prescriptions/Referrals Prescriptions/Med Rec: Continued pantoprazole 40 mg tablet,delayed release (DR/EC) 40 mg PO QDAY Qty: 30 0RF acetaminophen 500 mg capsule 1,000 mg PO Q4H PRN (Reason: pain) Qty: 30 0RF lisinopril 20 mg Tablet 20 mg PO QDAY aspirin 81 mg tablet,chewable 1 tab PO QDAY Patient Comments: chew and swallow 1 tablet by mouth once daily sertraline 100 mg tablet 100 mg PO Q24H Patient Comments: take 1 tablet by mouth once daily oxybutynin chloride 5 mg tablet 5 mg PO BID Patient Comments: take 1 tablet by mouth twice a day Held divalproex 500 mg tablet extended release 24 hr 500 mg PO QDAY Hold Instructions: Resume on 08/22/25. per patient he is not taking, follow up with PCP before restarting Patient Comments: take 1 tablet by mouth once daily spironolactone 25 mg tablet 25 mg PO QDAY Hold Instructions: Resume on 08/22/25. hold due to hyperkalemia, repeat cmp in 1 week before restarting. follow up with PCP Referrals: Katherin Sanchez [Primary Care Provider] Patient/Caregiver Discharge Instructions Education Materials: Abdominal Pain Print Language: Rw[place] Stand Alone Forms: [employer] Award Info., Patient Portal Info Letter Discharge Order Discharge Orders: Discharge (Routine); Ordered 08/08/25 Ordered By: Olivia Hooper Quality Discharge Quality Measures VTE prophylaxis
--- NOTE | 2025-08-08 12:20 | PC.SS ---
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 Patient confirmed demographic information and stated that he lives at home alone. Patient stated that in case he is unable to make medical decisions on his own he would like his sister Shayy to make them [phone]. Patient stated that he has a cane at home, has 2L oxygen at home supplied by [facility], [place]. Patients PCP is Dr. Sanchez in [place] and his last appointment was this week 08/03/25. His pharmacy of choice is [facility]. Patient stated that once medically clear he would like to return home and his sister will provide transportation. Decision maker: Shayy [phone] d/c: home PCP: Dr. Sanchez
== END 2025-08-08 14:16 | disposition home or self-care (01) | DRG 394 ==
LOC: SERX 19:54 → SERHOLD 21:24 → S3SX 08-08 11:56 → SERHOLD 08-09 05:49
PROVIDERS: Physician Assistant; Admitting Provider Internal Medicine; Emergency Provider Emergency Medicine; PCP Physician Assistant; Visit Provider Internal Medicine
DX: K35.80 Unspecified acute appendicitis (principal); K76.6 Portal hypertension; I10 Essential (primary) hypertension; E78.5 Hyperlipidemia, unspecified; F31.9 Bipolar disorder, unspecified; R16.1 Splenomegaly, not elsewhere classified; F17.210 Nicotine dependence, cigarettes, uncomplicated; D69.6 Thrombocytopenia, unspecified; E87.5 Hyperkalemia; K74.60 Unspecified cirrhosis of liver; N32.81 Overactive bladder; F19.10 Other psychoactive substance abuse, uncomplicated; Z79.82 Long term (current) use of aspirin; Z79.899 Other long term (current) drug therapy; Z88.0 Allergy status to penicillin; Z88.5 Allergy status to narcotic agent; Z88.6 Allergy status to analgesic agent; K38.1 Appendicular concretions
CPT/HCPCS: 36415; 74177; 80053; 80307; 81001; 82803; 83605; 83690; 83735; 84100; 84132; 85025; 85610; 86850; 86900; 86901; 93225; 94640; 94664; 96365; 96372; 96375; 99284; A4649; J0360; J0696; J0744; J1644; J2270; J3490; J7120; Q9967; A9270; J1836

== ENCOUNTER 2025-09-01 14:16 | Inpatient (IN) | payer MEDICARE, MEDICAID, SELFPAY ==
[2025-09-01] VITALS (9 sets, daily range): BP systolic 96–111; BP diastolic 54–72; PULSE 70–94; RESP 15–19; TEMP 36.3–36.9; O2SAT 95–100; BMI 27.3; BMI 25.6
--- NOTE | 2025-09-01 14:21 | EKG_ITS ---
[facility] Test Date: 2025-09-01 Pat Name: ANDREW NAPIER Department: Room: - Gender: Male Skid Strapper: : 1960 Requested By: Eliazar Looney Order Number: [id number] Reading MD: Eliazar Looney Measurements Intervals [place] Rate: 95 P: 56 ME: 211 QRS: -18 QRSD: 113 T: 99 QT: 371 QTc: 467 Interpretive Statements SINUS RHYTHM WITH FIRST DEGREE AV BLOCK LEFT VENTRICULAR HYPERTROPHY AND ST-T CHANGE [VOLTAGE CRITERIA PLUS ST/T ABNORMALITY] INFERIOR MYOCARDIAL INFARCTION , PROBABLY OLD [40+ ms Q WAVE AND/OR ST/T ABNORMALITY IN II/aVF] Compared to ECG 03/11/2025 06:35:26 First degree AV block now present Left ventricular hypertrophy now present ST (T wave) deviation now present Atrial abnormality no longer present Myocardial infarct finding still present /store/[id number]
--- NOTE | 2025-09-01 14:23 | XR_ITS ---
Examination: CT abdomen with intravenous contrast CT pelvis with intravenous contrast 2-D coronal reconstructions 2-D sagittal reconstructions Date and time of exam: 09/01/2025 at 4:22 p.m. INDICATION: Left upper quadrant abdominal pain. Dark stools. COMPARISON: CT abdomen and pelvis 08/07/2025. CTDI: vol (mGy) 8.15 DLP: (mGycm) 519 Technique: Multiple axial sections of the abdomen and pelvis have been obtained. 64 slice high-resolution scanner used. 3 mm axial sections have been obtained, post intravenous injection 2-D sagittal, coronal reconstructions obtained. Low dose protocols were performed. One or more of the following dose reduction techniques were used; automated exposure control, adjustment of the mA and/or KV according to patient size, use of iterative reconstruction technique. Findings: Lower chest: Aortic valve and coronary artery calcifications are present, severe and diffuse throughout the RCA. No pericardial effusion. No airspace consolidation or pleural effusion. Liver: Redemonstration of cirrhotic liver without evidence for mass on single phase imaging. Biliary system: No calcified gallstones or findings concerning for acute cholecystitis or biliary ductal obstruction. Spleen: Splenic size is within normal limits. There are 3 lobulated very thin-walled fluid collections adjacent to the spleen of uncertain etiology. A healthcare representative cystic structure along the upper lateral margin of the spleen measures 4.3 x 1.4 cm in transaxial dimensions (axial image 59). Pancreas: Redemonstration of pancreatic steatosis/lipomatosis. Hazy fat stranding noted in the region of the pancreatic head and uncinate process, suspicious for low-grade acute interstitial pancreatitis until proven otherwise. There are multiple prominent presumed reactive lymph nodes in the region. No evidence for abnormal main pancreatic ductal dilatation. Adrenal glands: No significant findings. Kidneys and ureters: No solid mass. No calculi or hydroureteronephrosis. No evidence for acute pyelonephritis. Bladder: No calculi or focal mass. Pelvic organs: No mass or acute abnormality. Stable small central midline prostate calcification. Lymph nodes/retroperitoneum: No pathologically enlarged lymph nodes or other masses. No hematoma or other abnormal collections. Vessels: Aortobiiliac atherosclerotic calcifications without aneurysm. Bowel/Peritoneal cavity: Limited assessment of bowel due to segments of underdistention and lack of oral contrast. No contour deforming mass. Redemonstration of thick-walled appendix up to 1.1 cm with small appendicolith reidentified. No periappendiceal fat stranding. Colonic diverticulosis without evidence for acute diverticulitis. Moderate fecal burden is present throughout the redundant colon at time of imaging. No ascites or free air. No concerning peritoneal thickening. Abdominal/Pelvic wall: No significant hernia, other mass, or abnormal collection. Musculoskeletal: Multifocal degenerative changes with otherwise no evidence for recent fracture or aggressive lesion. Mild lumbar dextroscoliosis. Mild grade 1 degenerative related anterolisthesis of L3 over L4. Mild to moderate central canal stenosis at L4-L5. Multilevel mild neural foraminal stenosis, greatest at L5-S1. IMPRESSION: Possible mild grade acute interstitial pancreatitis. Please correlate with lipase. Nonspecific small lobulated thin-walled perisplenic fluid collections as described. No significant change in thick-walled appendix measuring up to 1.1 cm in thickness with appendicolith but no periappendiceal fat stranding. This could represent low-grade chronic appendicitis. Redemonstration of cirrhotic liver. No splenomegaly or ascites. Moderate fecal burden throughout the redundant colon at time of imaging. Colonic diverticulosis without evidence for acute diverticulitis. Coronary artery calcifications.
--- NOTE | 2025-09-01 14:24 | EDNOTE_ITS ---
<Statement entered by Lisbet Srivastava MD - 09/01/25 17:53> As co-signing physician, I was present and available for consult prn. I concur with the plan and care as documented by the midlevel provider. ED Abdominal Pain RME/HPI General Chief Complaint: Abdominal Pain Stated complaint: ABDOMINAL PAIN Time seen by provider: 09/01/25 14:20 Arrival date/time: 09/01/25 14:16 65-year-old male patient with significant history of hypertension, came in with EMS for evaluation regarding left upper quadrant pain. Has been having left upper quadrant pain for the last few days, described as dull ache, severity moderate. Patient also complained of black tarry stool for the last 10 days. Saw PCP last Saturday and still waiting for the results. Denies any vomiting denies any fever but complain of dizziness. Especially with activity. Patient denies any lower leg swelling. Denies any shortness of breath denies any cough. Denies any orthopnea. No medication was taken prior to ER visit. Patient is not taking any blood thinner Or aspirin. Related Data Home Medications ?Medication ?Instructions ?Recorded ?Confirmed lisinopril 20 mg tablet 20 mg PO QDAY 05/27/1908/07 aspirin 81 mg chewable tablet 1 tab PO QDAY 03/11/25 1 divalproex 500 mg tablet,extended 500 mg PO QDAY 03/1108/07/25 release 24 hr Held on 08/08/25. Instructions: Resume on 08/22/25. per patient he is not taking, follow up with PCP before restarting oxybutynin chloride 5 mg tablet 5 mg PO BID 03/11/25 1 sertraline 100 mg tablet 100 mg PO Q24H 03/11/2507/28 spironolactone 25 mg tablet 25 mg PO QDAY 08/07/2509/21 Held on 08/08/25. Instructions: Resume on 08/22/25. hold due to hyperkalemia, repeat cmp in 1 week before restarting. follow up with PCP Previous Rx's ?Medication ?Instructions ?Recorded pantoprazole 40 mg tablet,delayed 40 mg PO QDAY #30 ta bs 01/31/19 release acetaminophen 500 mg capsule 1,000 mg (2 x 500 mg) PO Q4H PRN 02/16/20 pain #30 caps Allergies Allergy/AdvReac Type Severity Reaction Status Date / Time codeine Allergy Unknown Verified 09/01/25 14:46 ibuprofen AdvReac Intermediate DUE TO HX Verified 09/01/25 14:46 OF ULCERS Penicillins AdvReac Intermediate MAKES Verified 09/01/25 14:46 INFECTIONS WORSE Review of Systems Review of Systems Narrative Review of Systems: Review of system reviewed and within normal limits except mentioned in HPI ED Exam Narrative Physical exam: VITAL SIGNS: Reviewed. GENERAL APPEARANCE: Alert and interactive, follows commands, no acute distress, HEAD AND FACE: Non-traumatic. ENT: PERRL, pale conjunctiva, eyelid no trauma, Mucous membrane moist. NECK: Supple, nontender, no nuchal rigidity. CHEST: No tenderness, no crepitus, no paradoxical movement, no retractions. LUNGS: Clear, well ventilated, symmetric, no rales, no wheezing, no ronchi, no stridor, good breath sounds bilaterally. HEART: Regular rate, regular rhythm, no murmur, no gallops. ABDOMEN: Soft, positive bowel sounds, nondistended, no guarding, left upper quadrant tenderness, no rebound, no masses, RECTAL: Deferred. GENITAL: Deferred. NEUROLOGICAL: Gross motor function intact sensory function intact, Appropriate for age. MUSCULOSKELETAL: low back nontender, full range of motion. EXTREMITIES: Nontender, full range of motion. SKIN: Color pale, dry, no rash, no lacerations, no abrasions, no contusions. LYMPHATICS: Deferred. Course Quality Measures none Orders Category Date Time Status COVID-19 Screening Questionnaire NOW Care 09/01/25 15:[address] Screening NOW Care 09/01/25 14:23 Active Decision to Admit X1 Care 09/01/25 15:53 Active EKG (ED ONLY) *Do not use* NOW Care 09/01/25 14:21 Completed Occult Blood,Stool (Nursing) NOW Care 09/01/25 15:40 Active Occult Blood,Stool (Nursing) ONCE Care 09/01/25 15:42 Active Transfuse,blood/blood products ONCE Care 09/01/25 15:40 Active Consult to Gastroenterology Stat Cons 09/01/25 15:[address] abdomen pelvis w con Stat Exams 09/01/25 14:23 Taken EKG (ED Only) Stat Exams 09/01/25 14:21 Draft CBC Stat Lab 09/01/25 14:46 Completed Comprehensive Metabolic Panel Stat Lab 09/01/25 14:46 Completed Lipase Stat Lab 09/01/25 14:46 Completed Magnesium Stat Lab 09/01/25 14:46 Completed Prothrombin Time with INR Stat Lab 09/01/25 14:46 Completed Troponin I Stat Lab 09/01/25 14:46 Completed Type and Screen Stat Lab 09/01/25 15:40 Ordered UA, C/S IF [Urinalysis, C/S if Indicated] Stat Lab 09/01/25 15:31 Completed prbc [Red Blood Cells] Stat Lab 09/01/25 15:40 Ordered Octreotide Acet Inj [SandoSTATIN Inj] Med 09/01/25 15:40 Discontinued 50 mcg IV X1 ONE Pantoprazole Inj [Protonix Inj] Med 09/01/25 15:40 Discontinued 80 mg IVP X1 ONE Ringers Lactated 500 ml [Lactated Ringers] 500 ml Med 09/01/25 14:21 Discontinued IV 999 mls/hr Sodium Chloride 0.9% [Ns] 100 ml Med 09/01/25 15:41 Pending Octreotide Acet Inj [SandoSTATIN Inj] 1,000 mcg IV 50 mcg/hr Sodium Chloride 0.9% [Ns] 100 ml Med 09/01/25 15:45 Active Octreotide Acet Inj [SandoSTATIN Inj] 1,000 mcg IV 50 mcg/hr Vital Signs Vital signs: Vital Signs Temperature 98.4 F 09/01/25 14:17 Pulse Rate 90 09/01/25 14:17 Respiratory Rate 18 09/01/25 14:17 Blood Pressure 111/72 09/01/25 14:17 Pulse Oximetry (%) 97 09/01/25 14:17 Oxygen Delivery Method Room Air 09/01/25 14:17 Abdominal Pain MDM MDM Narrative MDM Narrative:: 65-year-old male patient with significant history of hypertension, came in with EMS for evaluation regarding left upper quadrant pain. Has been having left upper quadrant pain for the last few days, described as dull ache, severity moderate. Patient also complained of black tarry stool for the last 10 days. Saw PCP last Saturday and still waiting for the results. Denies any vomiting denies any fever but complain of dizziness. Especially with activity. Patient denies any lower leg swelling. Denies any shortness of breath denies any cough. Denies any orthopnea. No medication was taken prior to ER visit. Patient is not taking any blood thinner Or aspirin. Patient used to be drinking alcohol on a regular basis but told me he stopped drinking more than 2 months ago. Patient is not taking any ibuprofen or Motrin Patient is hemoglobin today was noted to be 6.9, hematocrit of 20, last month patient's hemoglobin was normal at 14.7. Rectal exam showed strong positive for occult blood. Patient received IV fluids, Sandostatin IV, Protonix IV Spoke with Dr. Zambrano, GI specialist on-call, discussed the case, and will see the patient. Thank you Dr. Zambrano EKG showed sinus rhythm, ventricular rate of 95 bpm, SD interval up to 113 MS, no ST segment elevation depression noted. Patient data External records reviewed:: None Clinical information provided by:: patient Social determinants that could affect healthcare access:: none Patient has the following chronic illnesses:: History of liver cirrhosis How is presenting disease/condition affected by chronic disease/condition?: exacerbated by Evaluation data The following diagnostics were reviewed and interpreted by me:: lab results, radiology exam(s) and EKG tracing(s) Lab and/or radiology exams considered but not ordered:: None Interpretation Summary: EKG as interpreted by me showed normal sinus rhythm, ventricular to 95 bpm, no ST segment show depression noted. Medications / Prescriptions Medications or Prescriptions considered but not ordered:: And Medication administrations:: Medication Administration History Octreotide Acetate 1,000 mcg/ (Sodium Chloride) 102 mls @ 5.1 mls/hr IV .Q20H RAMAN; Protocol Stop: 09/06/25 15:41 Octreotide Acetate 1,000 mcg/ (Sodium Chloride) 102 mls @ 5.1 mls/hr IV .Q20H ONE; Protocol Stop: 09/02/25 11:44 Discontinued Medications Lactated Ringer's (Lactated Ringers) 500 mls @ 999 mls/hr IV .Q31M ONE Stop: 09/01/25 14:51 Last Infusion: 09/01/25 15:55 Dose: Infused Documented By: Admin: 09/01/25 15:24 Dose: 999 mls/hr Documented By: EF Octreotide Acetate (Octreotide Acet Inj 50 Mcg/Ml Vial) 50 mcg IV X1 ONE Stop: 09/01/25 15:41 Pantoprazole Sodium (Pantoprazole Inj 40 Mg Vial) 80 mg IVP X1 ONE Stop: 09/01/25 15:41 IV Protonix, Sandostatin IV and drip, and IV fluids Consultations Consultation(s) initiated? (list below): Yes Consultation #1 (Physician, Specialty, Details): Dr. Zambrano, GI specialist on-call to go to Diagnosis Differential diagnosis abdominal pain: abdominal pain and other (Upper GI bleed, anemia) Most likely diagnosis given after review of the tests above:: Upper GI bleed, anemia Admission Indicated Admission indicated?: indicated Admission Request Was there a request for admission?: Yes Admission Attestation Admission request attestation: Discussed case with [Dr. Sevilla] from Hospitalist service regarding admission. Discussed patients ED course, exam findings, labs, and radiology results. The Hospitalist [agrees] to accept the patient for admission. Disposition Plan Disposition Plan: Admit Discharge Plan Plan Patient Disposition: Admit Acute Care w/in Hospital Discharge Disposition comment: Stable Prescriptions/Referrals Prescriptions/Med Rec: No Action pantoprazole 40 mg tablet,delayed release (DR/EC) 40 mg PO QDAY Qty: 30 0RF acetaminophen 500 mg capsule 1,000 mg PO Q4H PRN (Reason: pain) Qty: 30 0RF lisinopril 20 mg Tablet 20 mg PO QDAY divalproex 500 mg tablet extended release 24 hr 500 mg PO QDAY Patient Comments: take 1 tablet by mouth once daily aspirin 81 mg tablet,chewable 1 tab PO QDAY Patient Comments: chew and swallow 1 tablet by mouth once daily sertraline 100 mg tablet 100 mg PO Q24H Patient Comments: take 1 tablet by mouth once daily oxybutynin chloride 5 mg tablet 5 mg PO BID Patient Comments: take 1 tablet by mouth twice a day spironolactone 25 mg tablet 25 mg PO QDAY Referrals: Katherin Sanchez [Primary Care Provider] - In 1 week Problem List Clinical Impression: Anemia, UGIB (upper gastrointestinal bleed) Patient/Caregiver Discharge Instructions Print Language: Yakut Stand Alone Forms: [facility] Award Info., Patient Portal Info Letter
--- NOTE | 2025-09-01 14:52 | PC.NURSE ---
Pt. here from home to room 8, pt. states he has left side abdominal pain that started this morning, pt. states he has nausea but no vomiting. Pt. states he has black stools X 10 days. Pt. states he stopped taking all 4 of his pysch meds 4 months ago when he quit drugs and alcohol, pt. states he would snort cocaine and smoke meth. Pt. states he has anxiety.
[2025-09-01 15:20] LABS: Basophils # (Auto) 0.0 Thou/mm3 (0.0-0.2); Basophils % (Auto) 0 % (0-2.5); Eosinophils # (Auto) 0.0 Thou/mm3 (0.0-0.5); Eosinophils % (Auto) 1 % (0-10); Immature Granulocytes Auto 0.02 Thou/mm3 (0.00-0.00); Lymphocytes # (Auto) 1.8 Thou/mm3 (1.0-4.8); Lymphocytes % (Auto) 30 % (10-50); Mean Corpuscular HGB Conc 34.5 g/dl (31.0-37.0); Mean Corpuscular Hemoglobin 32.4 pg (25.0-35.0); Mean Corpuscular Volume 94 fL (80-100); Monocytes # (Auto) 0.6 Thou/mm3 (0.0-0.8); Monocytes % (Auto) 10 % (0-12); Neutrophils # (Auto) 3.6 Thou/mm3 (1.8-7.7); Neutrophils % (Auto) 60 % (37-80); Nucleated Red Blood Cell # 0.00 Thou/mm3 (0.00-0.00); Nucleated Red Blood Cell % 0 /100 WBC (0); Platelet Count 168 Thou/mm3 (140-440); RDW Standard Deviation 50.9 fL (35.1-43.9); Red Blood Count 2.13 Miln/mm3 (4.50-5.90); White Blood Count 6.0 Thou/mm3 (3.8-10.6)
[2025-09-01] MEDS: RINGERS LACTATED 500 ML 500 ML 999 ML IV (15:24)
[2025-09-01 15:32] LABS: INR 1.2 (0.9-1.3); Prothrombin Time 12.8 Seconds (9.0-12.2)
[2025-09-01 15:33] LABS: Hematocrit 20.0 % (41.0-53.0); Hemoglobin 6.9 g/dL (13.5-16.0)
[2025-09-01 15:39] LABS: Alanine Aminotransferase 31 U/L (10-49); Albumin, Serum 3.7 gm/dL (3.4-4.8); Albumin/Globulin Ratio 1.9 (1.2-2.2); Alkaline Phosphatase 48 U/L (46-116); Anion Gap 8 (7-16); Aspartate Amino Transferase 61 U/L (0-34); BUN/Creatinine Ratio 20 Ratio (12-20); Bilirubin,Total 0.3 mg/dL (0.3-1.2); Blood Urea Nitrogen 14 mg/dL (9-23); Calcium 8.4 mg/dL (8.3-10.6); Calcium (Corrected) 8.6 mg/dL (8.5-10.1); Carbon Dioxide 25.6 mMol/L (20.0-31.0); Chloride 103 mMol/L (98-107); Creatinine (Component) 0.7 mg/dL (0.6-1.3); Estimated Creatinine Clearance 120.5 mL/min (>60); Globulin 1.9 gm/dL (2.3-3.5); Glucose 110 mg/dL (74-106); Lipase 27 U/L (12-53); Magnesium 2.1 mg/dL (1.6-2.6); Osmolality,Calculated 275 (275-295); Potassium 4.4 mMol/L (3.4-5.1); Sodium 137 mMol/L (136-145); Total Protein 5.6 gm/dL (5.7-8.2); Troponin I 0.021 ng/mL (0.0-0.045); eGFR > 60 See Note
[2025-09-01 15:51] LABS: Collection Type, Urine Clean Catch; Squamous Epithelial Cell,Urine 0 /hpf (0-5)
[2025-09-01 16:03] LABS: Bilirubin,Urine Negative (Negative); Blood,Urine Negative (Negative); Clarity,Urine Clear (Clear/Hazy); Color,Urine Colorless (Lt Yel-Yel); Culture Indicated,Urine Not Indicated; Glucose, Urine Negative (Negative); Ketones,Urine Negative (Negative); Leukocyte Esterase,Urine Negative (Negative); Nitrite,Urine Negative (Negative); PH,Urine 6.5 (5.0-7.0); Protein,Urine Negative (Neg - Trace); RBC,Urine < 1 /hpf (0-3); Specific Gravity,Urine 1.008 (1.001-1.035); Urobilinogen,Urine Negative mg/dL (0.0-1.0); WBC,Urine < 1 /hpf (0-5)
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
[2025-09-01] MEDS: OCTREOTIDE ACET INJ 50 mCg/ML VIAL IV (17:17)
[2025-09-01] MEDS: OCTREOTIDE ACET INJ 1,000 MCG in SODIUM CHLORIDE 0.9% 100 ML 5.1 MCG IV (17:24)
--- NOTE | 2025-09-01 17:36 | ESHP_ITS ---
<Statement entered by Ceferino Sevilla MD - 09/02/25 16:46> Patient was seen and examined at bedside. I agree on the assessment and plan on this note as documented by resident Radha Mclaughlin MD PGY1. 65-year-old male with past medical history of hypertension hyperlipidemia hepatitis C, alcohol-induced cirrhosis with history of prior GI bleed, bipolar disorder, schizophrenia, polysubstance use presented to the [facility] ED on 09/01 with a chief complaint of abdominal pain, reported melena, gastroenterology consulted, started on octreotide drip, Protonix twice daily. Will keep n.p.o., will schedule for EGD per GI recommendations. Case discussed with attending Dr. Osvaldo Womack MD PGY-2 Documentation for date of: 09/01/25 HPI History of Present Illness History of present illness: 65-year-old male patient with PMHx hypertension, hyperlipidemia, Hep C?, alcohol-induced cirrhosis with history of prior GI bleed, bipolar disorder, schizophrenia, polysubstance use (inc IVDU) presents with left upper quadrant pain. Admitted for GI bleed workup. Has been having left upper quadrant pain for the last few days, burning with ulcer-like feeling, 7/10 at worst, 2/10 now. Patient also complained of black tarry stool for the last 10 days. Pain was especially worse this morning after he ate and drink coffee.? Patient takes Protonix daily basis, 2 Tylenol did not help.? Last NSAID ibuprofen was 3-4 months ago.? Patient takes Tylenol 2-4 tabs a day for back pain, knee pain, and headache.? Last alcohol drink was 3 weeks ago.? Smoke 2 cigarettes a day, from 1 pack/day since 9 years old. Admitted nausea, melena. Denied vomiting, hemoptysis, hematemesis, hematochezia. ED: Rectal exam showed strong positive for occult blood. Patient received IV fluids, Sandostatin IV, Protonix IV, Octreotide IV. Hgb 6.9 2u PRBC ordered. Consulted GI, Dr. Zambrano Per chart review, extensive GI history including C. difficile colitis, SBO, possible appendicitis. Patient does not follow with GI outpatient. Recent ER visit 08/[address] shows a fluid-filled and thickened appendix with mild periappendiceal inflammation. Surgery consulted, commented that finding on CT is likely incidental as patient has no symptoms consistent with appendicitis. No surgery was performed. Recent ER visit 03/16 admitted for SBO and bibasilar PNA. Surgery consulted, recommended SBFT which resolved SBO. Received IV antibiotics. GI, Dr. Zambrano consulted and recommended to follow up outpatient upper endoscopy for possible prophylactic medication of esophageal varices. EGD 02/01/19: 2 ulcers and gastritis Colonoscopy 02/01/19: internal hemorrhoids and diverticulosis Review of Systems Review of Systems Systems Reviewed: All systems reviewed, normal except as documented Past Medical History Surgical History OTHER SURGICAL HX: Jaw Sx, Knee Sx Exam Vital Signs Temp Pulse Resp BP Pulse Ox O2 Del Method 98.3 F 83 15 111/68 97 Room Air 09/01/25 16:55 09/01/25 16:55 09/01/25 16:55 09/01/25 16:55 09/01/25 16:55 09/01/25 16:55 Narrative Exam General: AOx3, no acute distress, tangential, easy to redirect HEENT: NC/AT, mucous membranes moist, bilateral sclera anicteric Cardiovascular: regular rate and rhythm, S1/S2 present, no murmurs appreciated Pulmonary: clear to auscultation bilaterally, no rales/rhonchi/wheezes Abdominal: soft, mild tender to palpation on left upper quadrant, non-distended, no rebound/guarding, normal bowel sounds present Musculoskeletal: normal ROM, no peripheral edema Skin: warm and dry, intact, no rashes, Neuro: CN II-XII intact, no focal deficits Results: Labs 09/02/25 10:07 09/02/25 17:12 Labs: Short CBC 09/01/25 Range/Units 14:46 WBC 6.0 (3.8-10.6) Thou/mm3 Hgb 6.9 L* (13.5-16.0) g/dL Hct 20.0 L* (41.0-53.0) % Plt Count 168 (140-440) Thou/mm3 BMP 09/01/25 14:46 Sodium 137 Potassium 4.4 Chloride 103 Carbon Dioxide 25.6 BUN 14 Creatinine 0.7 Glucose 110 H Calcium 8.4 Cardiac Enzymes 09/01/25 Range/Units 14:46 Troponin I 0.021 (0.0-0.045) ng/mL Liver Function 09/01/25 Range/Units 14:46 Total Bilirubin 0.3 (0.3-1.2) mg/dL AST 61 H (0-34) U/L ALT 31 (10-49) U/L Alkaline Phosphatase 48 (46-116) U/L Albumin 3.7 (3.4-4.8) gm/dL Urine 09/01/25 Range/Units 15:31 Urine Color Colorless A (Lt Yel-Yel) Urine Clarity Clear (Clear/Hazy) Urine pH 6.5 (5.0-7.0) Ur Specific [place] 1.008 (1.001-1.035) Urine Protein Negative (Neg - Trace) Urine Glucose (UA) Negative (Negative) Quality Measures Quality Measures VTE prophylaxis Medications Home Medications and Allergies Home Medications ?Medication ?Instructions ?Recorded ?Confirmed ?Type lisinopril 20 mg tablet 20 mg PO QDAY 05/27/1909/01 History aspirin 81 mg chewable tablet 1 tab PO QDAY 03/11/25 1 11/01/24 History divalproex 500 mg tablet,extended 500 mg PO QDAY 03/1109/01/25 History release 24 hr Held on 08/08/25. Instructions: Resume on 08/22/25. per patient he is not taking, follow up with PCP before restarting oxybutynin chloride 5 mg tablet 5 mg PO BID 03/11/25 1 11/01/24 History sertraline 100 mg tablet 100 mg PO Q24H 03/11/2503/21 History spironolactone 25 mg tablet 25 mg PO QDAY 08/07/2503/21 History Held on 08/08/25. Instructions: Resume on 08/22/25. hold due to hyperkalemia, repeat cmp in 1 week before restarting. follow up with PCP Allergies Allergy/AdvReac Type Severity Reaction Status Date / Time codeine Allergy Unknown Verified 09/01/25 14:46 ibuprofen AdvReac Intermediate DUE TO HX Verified 09/01/25 14:46 OF ULCERS Penicillins AdvReac Intermediate MAKES Verified 09/01/25 14:46 INFECTIONS WORSE Visit Medications Acetaminophen (Acetaminophen 325 Mg Tablet) 650 mg PO Q6H PRN PRN Reason: Fever >100.4 or pain 1-3 Stop: 10/01/25 17:16 Octreotide Acetate 1,000 mcg/ (Sodium Chloride) 102 mls @ 5.1 mls/hr IV .Q20H RAMAN; Protocol Stop: 09/06/25 15:41 Octreotide Acetate 1,000 mcg/ (Sodium Chloride) 102 mls @ 5.1 mls/hr IV .Q20H ONE; Protocol Stop: 09/02/25 11:44 Last Admin: 09/01/25 17:24 Dose: 50 mcg/hr, 5.1 mls/hr Ceftriaxone Sodium/Dextrose (Rocephin/D5w 1gm Iv Premix) 1 gm in 50 mls @ 100 mls/hr IV QDAY RAMAN Stop: 09/08/25 17:24 Nicotine (Nicotine Patch 14 Mg/24 Hr Patch.Td24) 14 mg TOP QDAY RAMAN Stop: 10/02/25 08:59 Ondansetron HCl (Ondansetron Inj 2 Mg/Ml Inj 2 Ml) 4 mg IVP Q6H PRN; Protocol PRN Reason: NAUSEA OR VOMITING Stop: 10/01/25 17:16 Pantoprazole Sodium (Pantoprazole Inj 40 Mg Vial) 40 mg IVP BID RAMAN Stop: 10/01/25 20:59 Tramadol HCl (Tramadol Hcl 50 Mg Tablet) 50 mg PO Q6HR PRN PRN Reason: PAIN SCALE 4-10(Mod-Sev Stop: 09/06/25 17:16 Discontinued Medications Lactated Ringer's (Lactated Ringers) 500 mls @ 999 mls/hr IV .Q31M ONE Stop: 09/01/25 14:51 Last Infusion: 09/01/25 15:55 Dose: Infused Octreotide Acetate (Octreotide Acet Inj 50 Mcg/Ml Vial) 50 mcg IV X1 ONE Stop: 09/01/25 15:41 Last Admin: 09/01/25 17:17 Dose: 50 mcg Pantoprazole Sodium (Pantoprazole Inj 40 Mg Vial) 80 mg IVP X1 ONE Stop: 09/01/25 15:41 Last Admin: 09/01/25 17:14 Dose: 80 mg Assessment & Plan Plan #GI bleed 65M with past medical history of Hep C, alcohol-induced cirrhosis with history of prior GI bleed presents with left upper quadrant pain and black tarry stool for the last 10 days. Hgb 6.9. Extensive GI history. Last EGD and colonoscopy 6 years ago in 2019. Plan: -Start Rocephin 1g for SBP PPx -Pending 2u PRBC transfusion -Consulted GI, Dr. Zambrano, appreciate recs -Per GI resident, NPO, continue Protonix and Octreotide drip, possible EGD tomorrow -Follow up with Hgb after transfusion -No pharmacological DVT PPx for now due to suspicion of GI bleed #Schizophrenia -Restart Divalproex 500mg PO ER per pharmacy -No other psy meds from meds recs #Chronic smoker -Smoke 2 cigarretes per day, 1 pack per day since 9 years old -Nicotine patch daily Health Maintenance: Code status: Full DVT prophylaxis: SCD GI prophylaxis: Protonix Diet: NPO per GI Jenkins: No Lines: PIV Supplemental O2: None Disposition: Tele bed Assessment and plan discussed with my attending physician Dr. Ayon and Dr. Sevilla (PGY-2). Dr. Mclaughlin (PGY-1) ? residential sales consultant Attending Provider Attestation/Addendum I have discussed and was present for the essential components of the history, physical examination, diagnosis, and treatment plan with the resident. I agree with the patient's care as documented by the resident and amended herein by me. [place] Ayon DO. Although this document has been carefully reviewed, there may still be some phonetic and other typographical errors. These errors are purely grammatical due to imperfections in the software program and should not be construed in any way to compromise the substance of the patient's medical care during this visit.
--- NOTE | 2025-09-01 17:44 | PC.NURSE ---
Pharmacy in with pt. talking to pt. and taking pt.'s medications to the pharmacy.
--- NOTE | 2025-09-01 18:31 | PC.NURSE ---
Informed Dr. Ayon BS is 80 at this time, he states it's ok to give pt. fluids. Fluids tray ordered by Dr. Clarke, tray given to pt. Dr. Ayon is bedside talking with pt. informs pt. he will be scoped tomorrow.
[2025-09-01] MEDS: DIVALPROEX SOD ER 250 MG TABER (NON-FORMULARY) 500 MG PO (18:59)
[2025-09-01] MEDS: cefTRIAXone/D5w 1gm IV premix 1 GM/50 ML BAG IV (19:02)
[2025-09-02] VITALS (20 sets, daily range): BP systolic 86–154; BP diastolic 61–87; PULSE 60–768; RESP 15–20; TEMP 36.1–36.9; O2SAT 93–99; BMI 25.6
[2025-09-02 03:29] LABS: Basophils # (Auto) 0.0 Thou/mm3 (0.0-0.2); Basophils % (Auto) 0 % (0-2.5); Eosinophils # (Auto) 0.1 Thou/mm3 (0.0-0.5); Eosinophils % (Auto) 2 % (0-10); Hematocrit 20.2 % (41.0-53.0); Immature Granulocytes Auto 0.01 Thou/mm3 (0.00-0.00); Lymphocytes # (Auto) 1.8 Thou/mm3 (1.0-4.8); Lymphocytes % (Auto) 39 % (10-50); Mean Corpuscular HGB Conc 34.2 g/dl (31.0-37.0); Mean Corpuscular Hemoglobin 31.4 pg (25.0-35.0); Mean Corpuscular Volume 92 fL (80-100); Monocytes # (Auto) 0.5 Thou/mm3 (0.0-0.8); Monocytes % (Auto) 11 % (0-12); Neutrophils # (Auto) 2.1 Thou/mm3 (1.8-7.7); Neutrophils % (Auto) 48 % (37-80); Nucleated Red Blood Cell # 0.00 Thou/mm3 (0.00-0.00); Nucleated Red Blood Cell % 0 /100 WBC (0); Platelet Count 141 Thou/mm3 (140-440); RDW Standard Deviation 51.0 fL (35.1-43.9); Red Blood Count 2.20 Miln/mm3 (4.50-5.90); White Blood Count 4.5 Thou/mm3 (3.8-10.6)
[2025-09-02 03:33] LABS: Hemoglobin 6.9 g/dL (13.5-16.0)
[2025-09-02 03:43] LABS: INR 1.2 (0.9-1.3); Partial Thromboplastin Time 23.7 Seconds (22.0-36.0); Prothrombin Time 12.9 Seconds (9.0-12.2)
[2025-09-02 03:49] LABS: Alanine Aminotransferase 28 U/L (10-49); Albumin, Serum 3.3 gm/dL (3.4-4.8); Albumin/Globulin Ratio 1.9 (1.2-2.2); Alkaline Phosphatase 43 U/L (46-116); Anion Gap 5 (7-16); Aspartate Amino Transferase 54 U/L (0-34); BUN/Creatinine Ratio 15 Ratio (12-20); Bilirubin,Total 0.7 mg/dL (0.3-1.2); Blood Urea Nitrogen 12 mg/dL (9-23); Calcium 8.1 mg/dL (8.3-10.6); Calcium (Corrected) 8.7 mg/dL (8.5-10.1); Carbon Dioxide 27.0 mMol/L (20.0-31.0); Cardiac Risk Estimate 4.4 RATIO (4.0-6.7); Chloride 106 mMol/L (98-107); Cholesterol 115 mg/dL (132-200); Creatinine (Component) 0.8 mg/dL (0.6-1.3); Estimated Creatinine Clearance 105.4 mL/min (>60); Globulin 1.7 gm/dL (2.3-3.5); Glucose 88 mg/dL (74-106); HDL Cholesterol 26 mg/dL (40-60); LDL Cholesterol,Calculated 77 mg/dL (0-130); Magnesium 2.1 mg/dL (1.6-2.6); Osmolality,Calculated 274 (275-295); Phosphorous 3.9 mg/dL (2.4-5.1); Potassium 5.2 mMol/L (3.4-5.1); Sodium 138 mMol/L (136-145); Total Protein 5.0 gm/dL (5.7-8.2); Triglycerides 58 mg/dL (30-150); eGFR > 60 See Note
[2025-09-02] MEDS: OCTREOTIDE ACET INJ 1,000 MCG in SODIUM CHLORIDE 0.9% 100 ML 5.1 MCG IV (04:12)
--- NOTE | 2025-09-02 09:30 | ESPR_ITS ---
<Statement entered by Ceferino Sevilla MD - 09/02/25 16:59> Patient was seen and examined at bedside. I agree on the assessment and plan on this note as documented by resident June Mclaughlin MD PGY1. 65-year-old male admitted for GI bleed workup, currently on octreotide gtt., Protonix twice daily, potassium slightly elevated at 5.2, was given albuterol treatment, will repeat renal panel later today. Patient is scheduled for EGD, gastroenterology is following, pending EGD results. Case discussed with attending Dr. Osvaldo Ayon DO Ceferino Sevilla MD PGY-2 Documentation for date of: 09/02/25 Subjective Subjective Interval history: Overnight: Patient reported shoulder pain, tramadol was given. H&H was repeated due to Hgb 6.9 after first 1u pRBC, same as Hgb on admission. Patient reported feeling better after blood transfusion. No pain after clear liquid diet. Reported history of blood transfusion in the past with no reaction, no reaction with recent blood transfusion today. Per nurse, no BM since hospitalization. No visible signs of bleeding Exam Vital Signs Temp Pulse Resp BP Pulse Ox O2 Del Method 97.8 F 63 18 108/67 96 Room Air 09/02/25 07:50 09/02/25 07:50 09/02/25 07:50 09/02/25 07:50 09/02/25 07:50 09/02/25 07:50 Narrative Exam General: AOx3, no acute distress, tangential, easy to redirect HEENT: NC/AT, mucous membranes moist, bilateral sclera anicteric Cardiovascular: regular rate and rhythm, S1/S2 present, no murmurs appreciated Pulmonary: clear to auscultation bilaterally, no rales/rhonchi/wheezes Abdominal: soft, non-tender, non-distended, no rebound/guarding, normal bowel sounds present Musculoskeletal: normal ROM, no peripheral edema Skin: warm and dry, intact, no rashes, Neuro: CN II-XII intact, no focal deficits Objective Labs 09/02/25 10:07 09/02/25 17:12 Labs: Laboratory Results - last 24 hr 09/01/25 09/01/25 09/01/25 14:46 15:31 16:52 WBC 6.0 RBC 2.13 L Hgb 6.9 L* Hct 20.0 L* MCV 94 MCH 32.4 MCHC 34.5 RDW Std Deviation 50.9 H Plt Count 168 Neut % (Auto) 60 Lymph % (Auto) 30 [place] % (Auto) 10 Eos % (Auto) 1 Baso % (Auto) 0 Neut # (Auto) 3.6 Lymph # (Auto) 1.8 [place] # (Auto) 0.6 Eos # (Auto) 0.0 Baso # (Auto) 0.0 Immature Gran # (Auto) 0.02 H Absolute Nucleated RBC 0.00 Immature Gran % 0 Nucleated RBC % 0 PT 12.8 H INR 1.2 APTT Sodium 137 Potassium 4.4 Chloride 103 Carbon Dioxide 25.6 Anion Gap 8 BUN 14 Creatinine 0.7 Estim Creat Clear Calc 120.5 eGFR > 60 BUN/Creatinine Ratio [address] Glu mg/dL Hemoglobin A1c Calculated Osmolality 275 Calcium 8.4 Corrected Calcium 8.6 Phosphorus Magnesium 2.1 Total Bilirubin 0.3 AST 61 H ALT 31 Alkaline Phosphatase 48 Troponin I 0.021 Total Protein 5.6 L Albumin 3.7 Globulin 1.9 L Albumin/Globulin Ratio 1.9 Triglycerides Cholesterol LDL Cholesterol, Calc HDL Cholesterol Cholesterol/HDL Ratio Lipase 27 Ur Collection Type Clean Catch Urine Color Colorless A Urine Clarity Clear Urine pH 6.5 Ur Specific [place] 1.008 Urine Protein Negative Urine Glucose (UA) Negative Urine Ketones Negative Urine Blood Negative Urine Nitrite Negative Urine Bilirubin Negative Urine Urobilinogen (Auto) Negative Ur Leukocyte Esterase Negative Urine RBC < 1 Urine WBC < 1 Ur Squamous Epith Cells 0 Urine Bacteria None Ur Culture Indicated? Not Indicated Blood Type A Negative Antibody Screen NEGATIVE Crossmatch See Detail Blood Bank Wristband ID Yes 09/02/25 03:04 WBC 4.5 RBC 2.20 L Hgb 6.9 L* Hct 20.2 L* MCV 92 MCH 31.4 MCHC 34.2 RDW Std Deviation 51.0 H Plt Count 141 Neut % (Auto) 48 Lymph % (Auto) 39 [place] % (Auto) 11 Eos % (Auto) 2 Baso % (Auto) 0 Neut # (Auto) 2.1 Lymph # (Auto) 1.8 [place] # (Auto) 0.5 Eos # (Auto) 0.1 Baso # (Auto) 0.0 Immature Gran # (Auto) 0.01 H Absolute Nucleated RBC 0.00 Immature Gran % 0 Nucleated RBC % 0 PT 12.9 H INR 1.2 APTT 23.7 Sodium 138 Potassium 5.2 H D Chloride 106 Carbon Dioxide 27.0 Anion Gap 5 L BUN 12 Creatinine 0.8 Estim Creat Clear Calc 105.4 eGFR > 60 BUN/Creatinine Ratio [address] Glu mg/dL Cancelled Hemoglobin A1c Cancelled Calculated Osmolality 274 L Calcium 8.1 L Corrected Calcium 8.7 Phosphorus 3.9 Magnesium 2.1 Total Bilirubin 0.7 AST 54 H ALT 28 Alkaline Phosphatase 43 L Troponin I Total Protein 5.0 L Albumin 3.3 L Globulin 1.7 L Albumin/Globulin Ratio 1.9 Triglycerides 58 Cholesterol 115 L LDL Cholesterol, Calc 77 HDL Cholesterol 26 L Cholesterol/HDL Ratio 4.4 Lipase Ur Collection Type Urine Color Urine Clarity Urine pH Ur Specific [place] Urine Protein Urine Glucose (UA) Urine Ketones Urine Blood Urine Nitrite Urine Bilirubin Urine Urobilinogen (Auto) Ur Leukocyte Esterase Urine RBC Urine WBC Ur Squamous Epith Cells Urine Bacteria Ur Culture Indicated? Blood Type Antibody Screen Crossmatch Blood Bank Wristband ID Quality Measures Quality Measures VTE prophylaxis Assessment & Plan Assessment Current Active Medications: Generic Name Dose Route Start Last Admin Trade Name Freq PRN Reason Stop Dose Admin Acetaminophen 650 mg 09/01/25 17:17 Acetaminophen 325 Mg Tablet PO 10/01/25 17:16 Q6H PRN Fever >100.4 or pain 1-3 Octreotide Acetate 1,000 mcg/ 102 mls @ 5.1 mls/hr 09/02/25 04:15 09/02/25 04:12 Sodium Chloride IV 09/06/25 08:14 50 mcg/hr .Q20H RAMAN 5.1 mls/hr Protocol Administration 50 MCG/HR Octreotide Acetate 1,000 mcg/ 102 mls @ 5.1 mls/hr 09/01/25 15:45 09/02/25 04:12 Sodium Chloride IV 09/02/25 11:44 0 mcg/hr .Q20H ONE 0 mls/hr Protocol Infusion 50 MCG/HR Ceftriaxone Sodium/Dextrose 1 gm in 50 mls @ 100 mls/hr 09/01/25 17:25 09/01/25 19:35 Rocephin/D5w 1gm Iv Premix IV 09/08/25 17:24 Infused QDAY RAMAN Infusion Nicotine 14 mg 09/02/25 09:00 Nicotine Patch 14 Mg/24 Hr Patch.Td24 TOP 10/02/25 08:59 QDAY RAMAN Ondansetron HCl 4 mg 09/01/25 17:17 Ondansetron Inj 2 Mg/Ml Inj 2 Ml IVP 10/01/25 17:16 Q6H PRN NAUSEA OR VOMITING Protocol Pantoprazole Sodium 40 mg 09/01/25 21:00 09/01/25 21:22 Pantoprazole Inj 40 Mg Vial IVP 10/01/25 20:59 Not Given BID RAMAN Tramadol HCl 50 mg 09/01/25 17:17 09/01/25 17:34 Tramadol Hcl 50 Mg Tablet PO 09/06/25 17:16 50 mg Q6HR PRN Administration PAIN SCALE 4-10(Mod-Sev Plan #GI bleed 65M with past medical history of Hep C, alcohol-induced cirrhosis with history of prior GI bleed presents with left upper quadrant pain and black tarry stool for the last 10 days. Hgb 6.9. Extensive GI history. Last EGD and colonoscopy 6 years ago in 2019. Per GI, Ddx: Esophageal varices vs decompensated liver cirrhosis vs gastritis/ alcohol-related erosive gastritis vs diverticulosis Plan: -GI consulted, appreciate recs: Octreotide infusion at 50 mcg/h, Protonix 40 mg IV twice daily, CLD until 11 AM, NPO after that- EGD and fiberoptic colonoscopy with possible biopsy possible therapeutic intervention under sedation scheduled for this PM -Follow up with Hgb after transfusion -No pharmacological DVT PPx for now due to suspicion of GI bleed #Hyperkalemia Potassium elevated from 4.4-5.2. No renal history. Not on spironolactone or other meds affecting potassium DDx: Spironolactone-induced hyperkalemia, Hepatorenal (Creatinine not elevated 0.8), Transfusion reaction -EKG 09/01 SR with first degree AV block Plan: -Calcium gluconate 1g -Albuterol 10mg treatment -Repeat renal panel #Schizophrenia -Restart Divalproex 500mg PO ER per pharmacy -No other psy meds from meds recs #Chronic smoker -Smoke 2 cigarretes per day, 1 pack per day since 9 years old -Nicotine patch daily Health Maintenance: Code status: Full DVT prophylaxis: SCD GI prophylaxis: Protonix Diet: NPO per GI Jenkins: No Lines: PIV Supplemental O2: None Disposition: Tele bed Assessment and plan discussed with my attending physician Dr. Ayon and Dr. Sevilla (PGY-2). Dr. Mclaughlin (PGY-1) ? residential care officer Attending Provider Attestation/Addendum I have discussed and was present for the essential components of the history, physical examination, diagnosis, and treatment plan with the resident. I agree with the patient's care as documented by the resident and amended herein by me. [place] Ayon DO. Although this document has been carefully reviewed, there may still be some phonetic and other typographical errors. These errors are purely grammatical due to imperfections in the software program and should not be construed in any way to compromise the substance of the patient's medical care during this visit.
[2025-09-02] MEDS: CALCIUM GLUC/NS 1000MG IVPB 1,000 MG/50 ML BAG 300 MG IV (09:47)
[2025-09-02] MEDS: cefTRIAXone/D5w 1gm IV premix 1 GM/50 ML BAG IV (09:47)
[2025-09-02] MEDS: NICOTINE PATCH 14 MG/24 HR PATCH.TD24 TOP (09:48)
[2025-09-02] MEDS: ALBUTEROL RT 2.5 MG/0.5 ML NEBU 10 MG INH (09:56)
[2025-09-02 10:06] LABS: Misc Send Out* See Sep Rpt
[2025-09-02 10:41] LABS: Hematocrit 22.6 % (41.0-53.0)
--- NOTE | 2025-09-02 11:15 | PC.NURSE ---
MD Bull notified of pt sudden complaint of chest pain with heaviness, and abdominal pain. per patient has experienced this in the past month often and then goes away. MD notified no order for ekg. MD order to give tramadol and will come assess patient. Upon reassessment pt states pain decreased and now 1/10.
[2025-09-02 11:43] LABS: Hemoglobin 7.7 g/dL (13.5-16.0)
[2025-09-02] MEDS: DIVALPROEX SOD ER 250 MG TABER (NON-FORMULARY) 500 MG PO (14:20)
[2025-09-02 17:40] LABS: Albumin, Serum 3.7 gm/dL (3.4-4.8); Anion Gap 6 (7-16); BUN/Creatinine Ratio 11 Ratio (12-20); Blood Urea Nitrogen 9 mg/dL (9-23); Calcium 8.2 mg/dL (8.3-10.6); Calcium (Corrected) 8.4 mg/dL (8.5-10.1); Carbon Dioxide 28.1 mMol/L (20.0-31.0); Chloride 106 mMol/L (98-107); Creatinine (Component) 0.8 mg/dL (0.6-1.3); Estimated Creatinine Clearance 105.4 mL/min (>60); Glucose 106 mg/dL (74-106); Osmolality,Calculated 278 (275-295); Phosphorous 4.1 mg/dL (2.4-5.1); Potassium 4.7 mMol/L (3.4-5.1); Sodium 140 mMol/L (136-145); eGFR > 60 See Note
[2025-09-02] MEDS: SODIUM CHLORIDE 0.9% 100 ML IV (19:20)
[2025-09-02] MEDS: NA SU/NAHCO3/KC/PEG (Golytely) 4,000 ML BTL 4000 ML PO (20:35)
[2025-09-03] VITALS (21 sets, daily range): BP systolic 124–171; BP diastolic 72–104; PULSE 59–100; RESP 12–24; TEMP 36.1–36.4; O2SAT 95–100; BMI 25.8; BMI 25.9
[2025-09-03] MEDS: OCTREOTIDE ACET INJ 1,000 MCG in SODIUM CHLORIDE 0.9% 100 ML 5.1 MCG IV (01:35)
[2025-09-03] MEDS: NA SU/NAHCO3/KC/PEG (Golytely) 4,000 ML BTL 4000 ML PO ×2 (05:02→14:55)
[2025-09-03 06:52] LABS: Alanine Aminotransferase 28 U/L (10-49); Albumin, Serum 3.8 gm/dL (3.4-4.8); Albumin/Globulin Ratio 1.7 (1.2-2.2); Alkaline Phosphatase 55 U/L (46-116); Anion Gap 7 (7-16); Aspartate Amino Transferase 54 U/L (0-34); BUN/Creatinine Ratio 6 Ratio (12-20); Bilirubin,Total 0.6 mg/dL (0.3-1.2); Blood Urea Nitrogen < 5 mg/dL (9-23); Calcium 8.6 mg/dL (8.3-10.6); Calcium (Corrected) 8.8 mg/dL (8.5-10.1); Carbon Dioxide 27.9 mMol/L (20.0-31.0); Chloride 105 mMol/L (98-107); Creatinine (Component) 0.8 mg/dL (0.6-1.3); Estimated Creatinine Clearance 105.4 mL/min (>60); Globulin 2.3 gm/dL (2.3-3.5); Glucose 62 mg/dL (74-106); Magnesium 2.2 mg/dL (1.6-2.6); Osmolality,Calculated 274 (275-295); Phosphorous 3.8 mg/dL (2.4-5.1); Potassium 4.8 mMol/L (3.4-5.1); Sodium 140 mMol/L (136-145); Total Protein 6.1 gm/dL (5.7-8.2); eGFR > 60 See Note
[2025-09-03 08:04] LABS: Basophils # (Auto) 0.0 Thou/mm3 (0.0-0.2); Basophils % (Auto) 0 % (0-2.5); Eosinophils # (Auto) 0.1 Thou/mm3 (0.0-0.5); Eosinophils % (Auto) 2 % (0-10); Hematocrit 23.7 % (41.0-53.0); Immature Granulocytes Auto 0.01 Thou/mm3 (0.00-0.00); Lymphocytes # (Auto) 1.1 Thou/mm3 (1.0-4.8); Lymphocytes % (Auto) 26 % (10-50); Mean Corpuscular HGB Conc 34.2 g/dl (31.0-37.0); Mean Corpuscular Hemoglobin 31.2 pg (25.0-35.0); Mean Corpuscular Volume 91 fL (80-100); Monocytes # (Auto) 0.4 Thou/mm3 (0.0-0.8); Monocytes % (Auto) 9 % (0-12); Neutrophils # (Auto) 2.6 Thou/mm3 (1.8-7.7); Neutrophils % (Auto) 63 % (37-80); Nucleated Red Blood Cell # 0.00 Thou/mm3 (0.00-0.00); Nucleated Red Blood Cell % 0 /100 WBC (0); Platelet Count 147 Thou/mm3 (140-440); RDW Standard Deviation 50.7 fL (35.1-43.9); Red Blood Count 2.60 Miln/mm3 (4.50-5.90); White Blood Count 4.2 Thou/mm3 (3.8-10.6)
[2025-09-03 08:39] LABS: Hemoglobin 8.1 g/dL (13.5-16.0)
--- NOTE | 2025-09-03 08:45 | PC.SS ---
Follow up note: Colonoscopy today. On IV antibiotic.
[2025-09-03] MEDS: DIVALPROEX SOD ER 250 MG TABER (NON-FORMULARY) 500 MG PO (08:47)
[2025-09-03] MEDS: NICOTINE PATCH 14 MG/24 HR PATCH.TD24 TOP (08:48)
[2025-09-03] MEDS: cefTRIAXone/D5w 1gm IV premix 1 GM/50 ML BAG IV (08:48)
--- NOTE | 2025-09-03 09:13 | ESPR_ITS ---
<Statement entered by Isaias Miranda MD - 09/03/25 16:27> Patient seen and examined at bedside. I discussed and supervised with the international marketing intern physician who took care of this patient. I personally saw and examined the patient. I agree with most of the assessment and plan. Plan of care discussed with attending Dr. Ayon. Isaias Miranda MD PGY-2 Documentation for date of: 09/03/25 Subjective Subjective Interval history: Patient felt well today. Status post EGD yesterday. Patient is currently drinking GoLytely to prep for colonoscopy today. Patient reported liquid melanotic stool x 5 since yesterday. Hemoglobin is stable 8.1 status post 2u pRBC yesterday. Per GI report EGD showed normal esophagus, erythema gastritis, normal duodenum, gastric polyp, no esophageal varices. Source of bleeding remain obscure. Exam Vital Signs Temp Pulse Resp BP Pulse Ox O2 Del Method FiO2 97.1 F 65 16 124/74 96 Room Air 3 09/03/25 08:00 09/03/25 08:00 09/03/25 08:00 09/03/25 08:00 09/03/25 08:00 09/03/25 08:00 09/02/25 19:30 Narrative Exam General: AOx3, no acute distress, tangential, easy to redirect HEENT: NC/AT, mucous membranes moist, bilateral sclera anicteric Cardiovascular: regular rate and rhythm, S1/S2 present, no murmurs appreciated Pulmonary: clear to auscultation bilaterally, no rales/rhonchi/wheezes Abdominal: soft, non-tender, non-distended, no rebound/guarding, normal bowel sounds present Musculoskeletal: normal ROM, no peripheral edema Skin: warm and dry, intact, no rashes, Neuro: CN II-XII intact, no focal deficits Objective Labs 09/03/25 07:48 09/03/25 05:05 Labs: Laboratory Results - last 24 hr 09/02/25 09/02/25 09/03/25 10:07 17:12 05:05 WBC RBC Hgb 7.7 L Hct 22.6 L MCV MCH MCHC RDW Std Deviation Plt Count Neut % (Auto) Lymph % (Auto) [facility] % (Auto) Eos % (Auto) Baso % (Auto) Neut # (Auto) Lymph # (Auto) [facility] # (Auto) Eos # (Auto) Baso # (Auto) Immature Gran # (Auto) Absolute Nucleated RBC Immature Gran % Nucleated RBC % Sodium 140 140 Potassium 4.7 D 4.8 Chloride 106 105 Carbon Dioxide 28.1 27.9 Anion Gap 6 L 7 BUN 9 < 5 L Creatinine 0.8 0.8 Estim Creat Clear Calc 105.4 105.4 eGFR > 60 > 60 BUN/Creatinine Ratio 11 L 6 L Glucose 106 62 L Calculated Osmolality 278 274 L Calcium 8.2 L 8.6 Corrected Calcium 8.4 L 8.8 Phosphorus 4.1 3.8 Magnesium 2.2 Total Bilirubin 0.6 AST 54 H ALT 28 Alkaline Phosphatase 55 D Total Protein 6.1 Albumin 3.7 3.8 Globulin 2.3 Albumin/Globulin Ratio 1.7 09/03/25 07:48 WBC 4.2 RBC 2.60 L Hgb 8.1 L Hct 23.7 L MCV 91 MCH 31.2 MCHC 34.2 RDW Std Deviation 50.7 H Plt Count 147 Neut % (Auto) 63 Lymph % (Auto) 26 [facility] % (Auto) 9 Eos % (Auto) 2 Baso % (Auto) 0 Neut # (Auto) 2.6 Lymph # (Auto) 1.1 [facility] # (Auto) 0.4 Eos # (Auto) 0.1 Baso # (Auto) 0.0 Immature Gran # (Auto) 0.01 H Absolute Nucleated RBC 0.00 Immature Gran % 0 Nucleated RBC % 0 Sodium Potassium Chloride Carbon Dioxide Anion Gap BUN Creatinine Estim Creat Clear Calc eGFR BUN/Creatinine Ratio Glucose Calculated Osmolality Calcium Corrected Calcium Phosphorus Magnesium Total Bilirubin AST ALT Alkaline Phosphatase Total Protein Albumin Globulin Albumin/Globulin Ratio Quality Measures Quality Measures VTE prophylaxis Assessment & Plan Assessment Current Active Medications: Generic Name Dose Route Start Last Admin Trade Name Freq PRN Reason Stop Dose Admin Acetaminophen 650 mg 09/01/25 17:17 Acetaminophen 325 Mg Tablet PO 10/01/25 17:16 Q6H PRN Fever >100.4 or pain 1-3 Divalproex Sodium 500 mg 09/02/25 12:00 09/03/25 08:47 Divalproex Sod Er 250 Mg Elsa (Non-Formulary) PO 10/02/25 11:59 500 mg DAILY RAMAN Administration Octreotide Acetate 1,000 mcg/ 102 mls @ 5.1 mls/hr 09/02/25 04:15 09/03/25 01:35 Sodium Chloride IV 09/06/25 08:14 50 mcg/hr .Q20H RAMAN 5.1 mls/hr Protocol Administration 50 MCG/HR Ceftriaxone Sodium/Dextrose 1 gm in 50 mls @ 100 mls/hr 09/01/25 17:25 09/03/25 08:48 Rocephin/D5w 1gm Iv Premix IV 09/08/25 17:24 100 mls/hr QDAY RAMAN Administration Nicotine 14 mg 09/02/25 09:00 09/03/25 08:48 Nicotine Patch 14 Mg/24 Hr Patch.Td24 TOP 10/02/25 08:59 14 mg QDAY RAMAN Administration Ondansetron HCl 4 mg 09/01/25 17:17 Ondansetron Inj 2 Mg/Ml Inj 2 Ml IVP 10/01/25 17:16 Q6H PRN NAUSEA OR VOMITING Protocol Pantoprazole Sodium 40 mg 09/01/25 21:00 09/03/25 08:49 Pantoprazole Inj 40 Mg Vial IVP 10/01/25 20:59 40 mg BID RAMAN Administration Polyethylene Glycol/Electrolytes 4,000 ml 09/02/25 19:35 09/03/25 05:02 Na Lanza/Nahco3/Samson/Peg (Golytely) 4,000 Ml Btl PO 10/02/25 19:34 1 container PRN PRN Administration If still dirty Tramadol HCl 50 mg 09/01/25 17:17 09/03/25 05:02 Tramadol Hcl 50 Mg Tablet PO 09/06/25 17:16 50 mg Q6HR PRN Administration PAIN SCALE 4-10(Mod-Sev Plan #GI bleed 65M with past medical history of Hep C, alcohol-induced cirrhosis with history of prior GI bleed presents with left upper quadrant pain and black tarry stool for the last 10 days. Hgb 6.9. Extensive GI history. Last EGD and colonoscopy 6 years ago in 2019. Per GI, Ddx: Esophageal varices vs decompensated liver cirrhosis vs gastritis/ alcohol-related erosive gastritis vs diverticulosis. GI report: EGD showed normal esophagus, erythema gastritis, normal duodenum, gastric polyp, no esophageal varices.? Source of bleeding remain obscure. Plan: -GI recs: CLD, GoLytely for fiberoptic colonoscopy with possible biopsy possible intervention scheduled for today tentatively -Follow up with Hgb after transfusion -No pharmacological DVT PPx for now due to suspicion of GI bleed #Hyperkalemia - resolved Potassium elevated to 5.2, downtrending. No renal history. Not on spironolactone or other meds affecting potassium DDx: Spironolactone-induced hyperkalemia, Hepatorenal (Creatinine not elevated 0.8), Transfusion reaction -EKG 09/01 SR with first degree AV block Plan: -Monitor renal panel #Schizophrenia -Restart Divalproex 500mg PO ER per pharmacy -No other psy meds from meds recs #Chronic smoker -Smoke 2 cigarretes per day, 1 pack per day since 9 years old -Nicotine patch daily Health Maintenance: Code status: Full DVT prophylaxis: SCD GI prophylaxis: Protonix Diet: CLD per GI Jenkins: No Lines: PIV Supplemental O2: None Disposition: Tele bed Assessment and plan discussed with my attending physician Dr. Ayon and Dr. Miranda (PGY-2). Dr. Mclaughlin (PGY-1) ? residential mental health worker Attending Provider Attestation/Addendum I have discussed and was present for the essential components of the history, physical examination, diagnosis, and treatment plan with the resident. I agree with the patient's care as documented by the resident and amended herein by me. [place] Ayon DO. Although this document has been carefully reviewed, there may still be some phonetic and other typographical errors. These errors are purely grammatical due to imperfections in the software program and should not be construed in any way to compromise the substance of the patient's medical care during this visit.
--- NOTE | 2025-09-03 15:25 | PC.SS ---
SS met with patient regarding his d/c plan. Pt is alert/oriented. Pt was admitted for GI Bleed. Pt confirmed demographic and contact information is correct on facesheet. Pt resides alone. Pt ambulates using a cane. Pt is ok with all ADLs. Patient?s pharmacy of choice is [facility]. Pt named his sister, Shayy Hernández medical decision maker if he is unable. SS provided verbal options for d/c to home or SNF. Patient?s choice is to return home upon d/c. Pt state he has home O2 from [facility]. Pt states he has been followed up [facility] in the past and is requesting to continue with them. D/C plan: Return home Next of Kin: Shayy Hernández, sister, phone# [phone] PCP: Dr. Katherin Sanchez from [facility] in [place] Address: Correct on facesheet
--- NOTE | 2025-09-03 17:55 | SUR.PHASEI ---
Pt. arrived to recovery via gurney, eyes closed, VSS, no c/o pain or nausea at this time, pt. allowed to sleep, responds to verbal commands, pink tinged fluid noted to gauze near rectum. Report received from Bianka SU.
--- NOTE | 2025-09-03 18:38 | SUR.PHASEI ---
Called and gave report on pt. s/p procedure to Caroline SU.
--- NOTE | 2025-09-03 18:58 | SUR.PHASEI ---
Pt. transferred to room 263 via ROGER briceno, AAOX3, pt. appears drowsy, no c/o pain or nausea at this time, IVs saline locked, flatulence present, Caroline SU assumed care of pt.
[2025-09-03] MEDS: HYDROcodone/APAP 5/325 TABLET 1 TAB PO (20:28)
[2025-09-04] VITALS: BP 140/78; PULSE 64; RESP 20; TEMP 36; O2SAT 95
[2025-09-04 03:54] VITALS: BP 141/76; PULSE 61; RESP 19; TEMP 36.6; O2SAT 96
[2025-09-04 03:55] VITALS: BMI 26.0
[2025-09-04 04:00] VITALS: PULSE 62
[2025-09-04 06:51] LABS: Basophils # (Auto) 0.0 Thou/mm3 (0.0-0.2); Basophils % (Auto) 0 % (0-2.5); Eosinophils # (Auto) 0.1 Thou/mm3 (0.0-0.5); Eosinophils % (Auto) 2 % (0-10); Hematocrit 24.1 % (41.0-53.0); Immature Granulocytes Auto 0.01 Thou/mm3 (0.00-0.00); Lymphocytes # (Auto) 1.1 Thou/mm3 (1.0-4.8); Lymphocytes % (Auto) 26 % (10-50); Mean Corpuscular HGB Conc 33.6 g/dl (31.0-37.0); Mean Corpuscular Hemoglobin 30.9 pg (25.0-35.0); Mean Corpuscular Volume 92 fL (80-100); Monocytes # (Auto) 0.4 Thou/mm3 (0.0-0.8); Monocytes % (Auto) 9 % (0-12); Neutrophils # (Auto) 2.7 Thou/mm3 (1.8-7.7); Neutrophils % (Auto) 62 % (37-80); Nucleated Red Blood Cell # 0.00 Thou/mm3 (0.00-0.00); Nucleated Red Blood Cell % 0 /100 WBC (0); Platelet Count 146 Thou/mm3 (140-440); RDW Standard Deviation 49.1 fL (35.1-43.9); Red Blood Count 2.62 Miln/mm3 (4.50-5.90); White Blood Count 4.3 Thou/mm3 (3.8-10.6)
[2025-09-04 06:52] LABS: Hemoglobin 8.1 g/dL (13.5-16.0)
[2025-09-04 07:22] LABS: Alanine Aminotransferase 20 U/L (10-49); Albumin, Serum 3.5 gm/dL (3.4-4.8); Albumin/Globulin Ratio 2.1 (1.2-2.2); Alkaline Phosphatase 51 U/L (46-116); Anion Gap 5 (7-16); Aspartate Amino Transferase 39 U/L (0-34); BUN/Creatinine Ratio 8 Ratio (12-20); Bilirubin,Total 0.4 mg/dL (0.3-1.2); Blood Urea Nitrogen 6 mg/dL (9-23); Calcium 8.2 mg/dL (8.3-10.6); Calcium (Corrected) 8.6 mg/dL (8.5-10.1); Carbon Dioxide 29.4 mMol/L (20.0-31.0); Chloride 106 mMol/L (98-107); Creatinine (Component) 0.8 mg/dL (0.6-1.3); Estimated Creatinine Clearance 102.4 mL/min (>60); Globulin 1.7 gm/dL (2.3-3.5); Glucose 128 mg/dL (74-106); Magnesium 2.1 mg/dL (1.6-2.6); Osmolality,Calculated 279 (275-295); Phosphorous 3.9 mg/dL (2.4-5.1); Potassium 4.1 mMol/L (3.4-5.1); Sodium 140 mMol/L (136-145); Total Protein 5.2 gm/dL (5.7-8.2); eGFR > 60 See Note
[2025-09-04 08:00] VITALS: BP 132/77; PULSE 71; RESP 20; TEMP 36.5; O2SAT 96
[2025-09-04] MEDS: DIVALPROEX SOD ER 250 MG TABER (NON-FORMULARY) 500 MG PO (08:03)
[2025-09-04] MEDS: NICOTINE PATCH 14 MG/24 HR PATCH.TD24 TOP (08:03)
[2025-09-04] MEDS: cefTRIAXone/D5w 1gm IV premix 1 GM/50 ML BAG IV (08:03)
--- NOTE | 2025-09-04 08:38 | ESDS_ITS ---
<Statement entered by Ceferino Sevilla MD - 09/04/25 14:56> Patient was seen and examined by me personally. I have reviewed the below documentation by the team resident and agree with its findings. Discharge plan was discussed with the attending, DO Ceferino Rodriguez MD Internal Medicine, PGY-2 Planned Discharge Date 09/04/25 DS: Providers Provider Date of admission: 09/01/25 17:17 Primary care physician: Katherin Sanchez Admitting Provider: Osvaldo Ayon DO Attending Provider on Admission: Osvaldo Ayon DO Consults: 09/01/25 15:53 Consult to Gastroenterology Stat Comment: Upper GI bleed Consulting Provider: Radha Zambrano Attending Provider on DC: Easton Fonseca DO Discharging Provider: Easton Fonseca DO DS: Diagnosis Problem List Completed Was Problem List Reviewed/Reconciled?: Yes Hospital Course Hospital Course Hospital course: Summary: 65-year-old male patient with PMHx hypertension, hyperlipidemia, Hep C?, alcohol-induced cirrhosis with history of prior GI bleed, bipolar disorder, schizophrenia, polysubstance use (inc IVDU) presents with left upper quadrant pain. Admitted for GI bleed workup. Patient's hemoglobin was low with 6.9, was given total of 2 units of PRBC transfusion. Was given IV octreotide and IV antibiotic. EGD showed gastritis but no outstanding bleeding source and colonoscopy revealed grade 3 internal hemorrhoid which has been banded and moderate diverticulosis of the sigmoid and descending colon with narrowing of the colon. Patient was stable and was discharged. ED course: Vitals: Temperature 98.4 F, MI 90, RR 18, BP 111/72, 97% O2 saturation on room air. Labs: WBC 6.0, Hgb 6.9, HCT 20.0, MCV 94, PLT 368, sodium 137, potassium 4.4, HCO3 -25.6, BUN 14, CR 0.7, glucose 110, T. bili 0.3, AST 61, albumin 3.7, total protein 5.6 UA: Clear colorless urine, negative urine nitrate, negative urine leukocyte esterase, no urine bacteria. CT abd/pelvis (09/01/2025): Cirrhotic liver, no splenomegaly or ascites, possible mild grade acute interstitial pancreatitis, possible low-grade chronic appendicitis, colonic diverticulosis without acute diverticulitis, coronary artery calcifications. Occult blood(09/01/2025) was positive In ED patient received 1 unit of PRBC infusion, IV octreotide 50 NTG x 1, IV pantoprazole 80 mg x 1, IV bolus LR 500 mL x 1, IV octreotide 1000 mcg x 2 Hospital Course: Upon admission to the hospital, considering patient's past medical history of alcohol induced cirrhosis and suspected GI bleed, patient started on IV ceftriaxone 1 g daily for SBP prophylaxis as well as octreotide drip at 50 mcg/h and IV pantoprazole 40 mg IV twice daily. Patient's Hgb was 6.9 and was given additional 1 units of pRBC transfusion which improved to 7.7. Started his home medication Divalproex 500mg PO qd for his schizophrenia. EGD (09/02/2025) showed gastritis with erythema, no esophageal varices, normal esophagus and duodenum, and unable to find any bleeding source. Octreotide drip has been stopped. Colonoscopy(09/03/2025) showed grade of 3 internal hemorrhoid which has been banded during the procedure, moderate diverticulosis in the sigmoid and descending colon that was narrowing the colon due to diverticular opening. Patient was recommended to start high-fiber diet indefinitely, repeat colonoscopy in 10 years for screening and follow-up with GI, Dr. Zambrano upon discharge. Patient's vitals and labs were stable and has been discharged. #GI bleed- R/o #Internal Hemorrhoids= Grade 3 #Schizophrenia #Chronic smoker #Hyperkalemia - resolved #Hx of Cirrhosis Instructions: -You were admitted to the hospital for GI bleed workup, your EGD showed that you have some gastritis, no esophageal varices/gastric ulcers found on your EGD. Your colonoscopy showed that you had grade 3 internal hemorrhoids with prolapse, they were most likely the source of your bleeding, which were banded by the security researcher. -You do have significant diverticulosis, please take high-fiber diet, drink adequate amount of water on a daily basis about 2 to 3 L unless advised otherwise by your primary care physician. -Use Tramadol as needed for pain management. -We recommend following up with security researcher Dr. Zambrano in 1 to 2 weeks, c all his office to make an appointment. -Please stop smoking, use nicotine patches/nicotine gum as needed -Follow-up with your psychiatrist outpatient, adjust your psych medications as advised by the psychiatrist. -Follow-up with your primary care physician within 1 week, if you do not have a PCP Assessment and plan discussed with my attending physician Dr. Ayon and Dr. Sevilla (PGY-2) Dr. Fonseca (PGY-1) - Internal medicine resident Status at Discharge Overall status at discharge: patient is progressing back to baseline Time Spent with Patient Time attestation: Total time spent providing and/or coordinating discharge services: Time spent: Greater than 30 minutes Exam Vital Signs Temp Pulse Resp BP Pulse Ox O2 Del Method O2 Flow Rate 97.8 F 62 19 141/76 H 96 Room Air 2 09/04/25 03:54 09/04/25 04:00 09/04/25 03:54 09/04/25 03:54 09/04/25 03:54 09/04/25 03:54 09/03/25 18:25 FiO2 3 09/02/25 19:30 Narrative Exam General: AOx3, no acute distress, tangential HEENT: NC/AT, mucous membranes moist, bilateral sclera anicteric Cardiovascular: regular rate and rhythm, S1/S2 present, no murmurs appreciated Pulmonary: clear to auscultation bilaterally, no rales/rhonchi/wheezes Abdominal: soft, non-tender, non-distended, no rebound/guarding, normal bowel sounds present Musculoskeletal: normal ROM, no peripheral edema Skin: warm and dry, intact, no rashes, Neuro: CN II-XII intact, no focal deficits Discharge Plan Plan Patient Disposition: HOME (Self Care) Patient condition on transfer: Stable Care Plan Goals: -You were admitted to the hospital for GI bleed workup, your EGD showed that you have some gastritis, no esophageal varices/gastric ulcers found on your EGD. Your colonoscopy showed that you had grade 3 internal hemorrhoids with prolapse, they were most likely the source of your bleeding, which were banded by the security researcher. -You do have significant diverticulosis, please take high-fiber diet, drink adequate amount of water on a daily basis about 2 to 3 L unless advised otherwise by your primary care physician. -Use Tramadol as needed for pain management. -We recommend following up with security researcher Dr. Zambrano in 1 to 2 weeks, call his office to make an appointment. -Please stop smoking, use nicotine patches/nicotine gum as needed -Follow-up with your psychiatrist outpatient, adjust your psych medications as a dvised by the psychiatrist. -Follow-up with your primary care physician within 1 week, if you do not have a PCP Prescriptions/Referrals Prescriptions/Med Rec: New tramadol 50 mg tablet 50 mg PO Q8H PRN (Reason: pain (scale score 5-10)) 5 Days Qty: 15 0RF Continued pantoprazole 40 mg tablet,delayed release (DR/EC) 40 mg PO QDAY Qty: 30 0RF acetaminophen 500 mg capsule 1,000 mg PO Q4H PRN (Reason: pain) Qty: 30 0RF lisinopril 20 mg Tablet 20 mg PO QDAY divalproex 500 mg tablet extended release 24 hr 500 mg PO QDAY Patient Comments: take 1 tablet by mouth once daily aspirin 81 mg tablet,chewable 1 tab PO QDAY Patient Comments: chew and swallow 1 tablet by mouth once daily oxybutynin chloride 5 mg tablet 5 mg PO BID Patient Comments: take 1 tablet by mouth twice a day Discontinued sertraline 100 mg tablet 100 mg PO Q24H Patient Comments: take 1 tablet by mouth once daily spironolactone 25 mg tablet 25 mg PO QDAY Referrals: Katherin Sanchez [Primary Care Provider] Radha Zambrano MD [Physician, Gastroenterology] Patient/Caregiver Discharge Instructions Discharge Activity: activity as tolerated Education Materials: Bleeding Gastrointestinal, Treating Hemorrhoids: Self- Care, Diagnosing Hemorrhoids, Taking a Sitz Bath, ED Diverticulosis Print Language: [place] Citizen Stand Alone Forms: [facility] Award Info., Patient Portal Info Letter Discharge Order Discharge Orders: Discharge (Routine); Ordered 09/04/25 Ordered By: Isaias Miranda Quality Discharge Quality Measures VTE prophylaxis Attestestation Attestation I have discussed and was present for the essential components of the discharge history, physical examination, diagnosis, and discharge treatment plan with the resident. I agree with the patient's discharge care as documented by the resident and amended herein by me. Chico Ayon DO. The patient understood all discharge instructions, all questions were answered satisfactorily. The patient was instructed to return to the Emergency Departmen t is symptoms worsened or persisted. Patient stable for discharge today, patient did present for GI bleed, underwent endoscopy on 09/02 demonstrating normal esophagus, gastritis was present with erythema, no clear source of bleeding was identified and hence the patient did have a colonoscopy on 09/03 which discovered internal hemorrhoids, grade 3 which were banded, 3 in total, per gastroenterology recommend repeat colonoscopy in 10 years and can follow-up with Dr. Zambrano, gastroenterology and to continue a high-fiber diet indefinitely. Patient was stable for discharge, afebrile, tolerating p.o. intake and ambulatory at time of discharge home Although this document has been carefully reviewed, there may still be some phonetic and other typographical errors. These errors are purely grammatical due to imperfections in the software program and should not be construed in any way to compromise the substance of the patient's medical care during this visit.
--- NOTE | 2025-09-04 11:44 | PC.NURSE ---
PT DISCHARGED AT 1141 WITH PAPERWORK, HOME MEDS AND BELONGINGS. QUESTIONS AND CONCERNS ADDRESSED. IV AND TELE MONITOR REMOVED.
== END 2025-09-04 11:41 | disposition home or self-care (01) | DRG 348 ==
LOC: SERX 15:54 → SERHOLD 17:31 → S2NX 19:48
PROVIDERS: Nurse Practitioner Family; Specialist; Admitting Provider Student in an Organized Health Care Education/Training Program; Emergency Provider Emergency Medicine; PCP Physician Assistant; Visit Provider Student in an Organized Health Care Education/Training Program
PROC: 0DJ08ZZ Inspection of Upper Intestinal Tract, Via Natural or Artificial Opening Endoscopic (ICD-10-PCS; CPT 43239; principal; 2025-09-02 19:30)
PROC: 0DJD8ZZ Inspection of Lower Intestinal Tract, Via Natural or Artificial Opening Endoscopic (ICD-10-PCS; CPT 45378; principal; 2025-09-03 16:30)
DX: K64.2 Third degree hemorrhoids (principal); D62 Acute posthemorrhagic anemia; K57.30 Diverticulosis of large intestine without perforation or abscess without bleeding; I10 Essential (primary) hypertension; E78.5 Hyperlipidemia, unspecified; F31.9 Bipolar disorder, unspecified; F20.9 Schizophrenia, unspecified; K31.7 Polyp of stomach and duodenum; F17.210 Nicotine dependence, cigarettes, uncomplicated; K70.30 Alcoholic cirrhosis of liver without ascites; I44.0 Atrioventricular block, first degree; B19.20 Unspecified viral hepatitis C without hepatic coma; E87.5 Hyperkalemia
CPT/HCPCS: 36415; 74177; 80053; 80061; 80069; 81001; 83036; 83519; 83690; 83735; 84100; 84484; 85014; 85018; 85025; 85610; 85730; 86850; 86900; 86901; 86923; 87081; 93005; 94644; 94645; 96361; 96365; 96366; 96375; 99284; A4649; J0613; J0696; J1200; J2250; J2354; J2470; J3010; J7050; J7120; P9016; Q9967; A9270